=== PATIENT | male | born 1960 | race Caucasian/White ===

== ENCOUNTER → 2016-12-28 | Outpatient (CLI) | payer MEDICARE, OTHER ==
--- NOTE | 2016-12-28 16:31 | CT ---
EXAMINATION TYPE: CT ChestAbdPelvis w con DATE OF EXAM: 12/28/2016 4:03 PM COMPARISON: Outside MRI lumbar spine October 03, 2016. CT lumbar spine October 03, 2016. HISTORY: Abnormal recent MRI spine imaging. CT DLP: 1081 mGycm. Automated Exposure Control for Dose Reduction was Utilized. CONTRAST: CT scan of the thorax, abdomen and pelvis is performed with oral and with IV Contrast, patient inject ed with 100 mL of Omnipaque 300. FINDINGS: LUNGS: Exam is degraded by respiratory motion artifact. Lungs are grossly clear. No suspicious parenc hymal nodule or mass is present bilaterally. MEDIASTINUM: There are no greater than 1 cm hilar or mediastinal lymph nodes. No pericardial effus ion is seen. No cardiomegaly is seen. There is moderate left atrial and mild right atrial dilatation . Coronary artery calcification is present. OTHER: No additional significant abnormality is seen. LIVER/GB: No significant abnormality is appreciated. PANCREAS: No significant abnormality is seen. SPLEEN: No significant abnormality is seen. ADRENALS: No significant abnormality is seen. KIDNEYS: No significant abnormality is seen. BOWEL: There is redundancy of the sigmoid colon present. No suspicious small or large bowel dilatatio n is seen. Appendix is within normal limits from the cecum. GENITAL ORGANS: No gross abnormality seen. LYMPH NODES: No greater than 1cm abdominal or pelvic lymph nodes are appreciated. OSSEOUS STRUCTURES: Osseous structures are markedly demineralized. Advanced compression type fracture deformity L5-S1 level is redemonstrated with posterior retropulsion. There are innumerable small adilene ent lesions throughout all visualized osseous structures. A few nonspecific sclerotic foci are scatte red throughout the thoracic vertebra. There is fixation hardware and healed fracture deformity of the right proximal femur causing streak artifact limiting evaluation at this level. OTHER: No significant additional abnormality is seen. IMPRESSION: Redemonstration of abnormal appearance of osseous structures with multiple lucent lesions identified. Differential includes diffuse myelomatous involvement or lytic metastatic disease. Clini skyler correlation advised. No suspicious primary mass or neoplasm identified. Some nonspecific scattere d foci of sclerosis in the thoracic spine are noted. Subacute advanced compression fracture at L1 lev el with posterior retropulsion is stable.
== END | disposition home or self-care (01) ==
LOC: RADCTMAIN 14:22
PROVIDERS: ATTEND Internal Medicine Hematology & Oncology
DX: R93.7 Abnormal findings on diagnostic imaging of other parts of musculoskeletal system (principal); R79.9 Abnormal finding of blood chemistry, unspecified
CPT/HCPCS: 71260; 74177; Q9967

== ENCOUNTER 2017-02-21 18:21 | Observation (INO) | payer MEDICARE, OTHER ==
[2017-02-21] MEDS ORDERED: ACETAMINOPHEN TAB 325 MG TAB PO PRN (20:24)
[2017-02-21] MEDS ORDERED: ALBUTEROL NEBULIZED 2.5 MG/3 ML INHALATION PRN (20:24)
[2017-02-21] MEDS ORDERED: SODIUM CHLORIDE 0.9% 1,000 ML IV SCH (20:45)
[2017-02-21] MEDS: GABAPENTIN 300 MG CAP PO SCH (21:55)
[2017-02-21] MEDS: levETIRAcetam 500 MG TAB PO SCH (21:55)
[2017-02-21] MEDS: carBAMazepine 200 MG TAB PO SCH (21:55)
[2017-02-21] MEDS: FAMOTIDINE 20 MG TAB PO SCH (21:55)
[2017-02-22 00:38] VITALS: RESP 16
[2017-02-22 03:43] VITALS: BMI 18.3
[2017-02-22] MEDS ORDERED: METOPROLOL SUCCINATE (ER) 25 MG TAB.ER.24H PO SCH (10:00)
[2017-02-22] MEDS ORDERED: PHENobarbital 64.8 MG TAB PO SCH (10:00)
[2017-02-22] MEDS ORDERED: FERROUS SULFATE 325 MG TAB PO SCH (10:00)
[2017-02-22] MEDS ORDERED: ASPIRIN 325 MG TAB PO SCH (10:00)
[2017-02-22 10:03] VITALS: BP 102/59; PULSE 82; TEMP 98.4
[2017-02-22] MEDS: GABAPENTIN 300 MG CAP PO SCH ×2 (10:23→17:00)
[2017-02-22] MEDS: FAMOTIDINE 20 MG TAB PO SCH (10:23)
[2017-02-22] MEDS: levETIRAcetam 500 MG TAB PO SCH (10:29)
[2017-02-22] MEDS: carBAMazepine 200 MG TAB PO SCH (10:32)
[2017-02-22] MEDS ORDERED: PROPOFOL 10 MG/ML 20 ML VIAL IV ONE (12:00)
[2017-02-22] MEDS ORDERED: LACTATED RINGERS 1,000 ML BAG IV ONE (12:12)
--- NOTE | 2017-02-22 12:58 | PCN ---
DATE OF PROCEDURE: 02/22/2017 PROCEDURE: Bone marrow aspirate and biopsy. INDICATION: Suspect multiple myeloma, lytic lesion on MRI and elevated serum free light chain level and ratio. After obtaining consent from the patient's mother, who has a dual power of criminal defense attorney, the procedure was preformed in the endoscopy suite under general anesthesia performed by the anesthesia team. The patient was put on the left lateral decubital position. The right posterior iliac crest was localized. The skin was cleansed with ChloraPrep. All sterile procedures were followed. About 2 mL of 2% Xylocaine was used for local anesthetic. A 5-inch Jamshidi needle was inserted, about 10 mL of aspirate and 1.5 ( ) needle core biopsy was obtained without any difficulties. Pressure applied afterward. There was negligible blood loss. The patient tolerated the procedure very well without any immediate complications.
[2017-02-22 13:38] LABS: Basophils % (A) 1 %; CH 32.8; CHCM 36.5; Eosinophils # (A) 0.2 k/uL (0-0.7); Eosinophils % (A) 4 %; HCT 35.1 % (39.0-53.0); HDW 2.53; HGB 12.6 gm/dL (13.0-17.5); Luc % (Auto) 2; Lymphocytes # (A) 0.7 k/uL (1.0-4.8); Lymphocytes % (A) 17 %; MCH 32.3 pg (25.0-35.0); MCHC 35.8 g/dL (31.0-37.0); MCV 90.1 fL (80.0-100.0); Mean Platelet Volume 6.8; Monocytes # (A) 0.3 k/uL (0-1.0); Monocytes % (A) 6 %; Neutrophils # (A) 3.2 k/uL (1.3-7.7); Neutrophils % (A) 71 %; RDW 13.1 % (11.5-15.5); WBC 4.5 k/uL (3.8-10.6); WBC (Perox) 4.47
--- NOTE | 2017-02-22 14:28 | P.HPIM ---
History of Present Illness H&P Date: 02/22/17 Chief Complaint: bone marrow biopsy and aspirate This is observation note, pt was admitted last night as he is mentally challenged and is unable to maintain NPO status for procedure this AM. His H&P has been scanned to the medical record, he has had his bone marrow with Dr. Chavez and has discharge instructions already placed. Review of Systems Constitutional: Reports as per HPI Past Medical History Past Medical History: CVA/TIA, GERD/Reflux, Hypertension, Osteoarthritis (OA), Pneumonia, Seizure Disorder, Skin Disorder, Sleep Apnea/CPAP/BIPAP Additional Past Medical History / Comment(s): epilepsy, constipation, mentally handicapped, headaches, bronchitis, O2 PRN nasal canula or mask, osteoporosis, sores from scratching, hypoglycemia, cerebral palsy-walks only a little-does fall per mom, wheelchair, bleeds easily. fell and fx back in 2 places 11/23 History of Any Multi-Drug Resistant Organisms: None Reported Past Surgical History: Ear Surgery, Orthopedic Surgery Additional Past Surgical History / Comment(s): ORIF rt hip has plate/screws. Past Anesthesia/Blood Transfusion Reactions: No Reported Reaction Past Psychological History: Anxiety Additional Psychological History / Comment(s): cerebral palsy, minimal speech- takes long time to pronounce words Smoking Status: Never smoker Past Alcohol Use History: None Reported Past Drug Use History: None Reported - Past Family History Father History Unknown: Yes Mother Family Medical History: Cancer, Deep Vein Thrombosis (DVT), Myocardial Infarction ([place]), Pulmonary Embolus Additional Family Medical History / Comment(s): breast ovarian and uterine cancer, stroke x 4 Medications and Allergies Home Medications Medication Instructions Recorded Confirmed Type Gabapentin [Neurontin] 300 mg PO TID@1000,1700,2200 07/27/15 02/21/17 History Metoprolol Succinate [Toprol XL] 12.5 mg PO DAILY 07/27/15 02/21/17 History PHENobarbital [Luminal] 64.8 mg PO BID 07/27/15 02/21/17 History Ranitidine HCl [Zantac] 150 mg PO BID 07/27/15 02/21/17 History levETIRAcetam [Keppra] 500 mg PO Q12H 07/27/15 02/21/17 History carBAMazepine [Epitol] 200 mg PO BID 05/31/16 02/21/17 History Acetaminophen Tab [Tylenol Tab] 500 mg PO Q4H PRN 10/03/16 02/21/17 History Albuterol Nebulized [Ventolin 2.5 mg INHALATION RT-QID PRN 01/03/17 02/21/17 History Nebulized] Ferrous Sulfate [Feosol] 325 mg PO DAILY 01/03/17 02/21/17 History Aspirin 325 mg PO DAILY 02/19/17 02/21/17 History HYDROcodone/APAP 10-325MG [[place] 1 tab PO Q4HR PRN 02/21/17 02/21/17 History 10-325] Omeprazole 20 mg PO DAILY 02/21/17 02/21/17 History Allergies Allergy/AdvReac Type Severity Reaction Status Date / Time codeine Allergy Rash/Hives Verified 02/21/17 20:38 erythromycin base Allergy Rash/Hives Verified 02/21/17 20:38 Iodinated Contrast Media - Allergy Rash/Hives Verified 02/21/17 20:38 Oral and [Iodinated Contrast Media - IV Dye] Penicillins Allergy Rash/Hives Verified 02/21/17 20:38 radioactive serum Allergy Rash/Hives Uncoded 02/19/17 14:45 Physical Exam Vitals: Vital Signs Temp Pulse Pulse Resp BP Pulse Ox 02/22/17 08:03 88 02/22/17 08:00 16 02/22/17 07:53 80 02/22/17 07:00 98.4 F 82 16 102/59 96 02/22/17 00:00 16 02/21/17 23:00 96.6 F L 67 16 182/88 100 Intake and Output 02/21/17 02/22/17 02/22/17 22:59 06:59 14:59 Intake Total 590 360 Balance 590 360 Intake: Oral 590 360 Other: Voiding Method Toilet # Voids 2 1 Weight 48.534 kg 48.534 kg Patient Weight 02/23/17 06:59 Weight [address] Chavez's procedure note Results CBC & Chem 7: 02/22/17 12:10 Labs: Abnormal Lab Results - Last 24 Hours (Table) 02/22/17 Range/Units 12:10 RBC 3.90 L (4.30-5.90) m/uL Hgb 12.6 L (13.0-17.5) gm/dL Hct 35.1 L (39.0-53.0) % Lymphocytes # 0.7 L (1.0-4.8) k/uL Thrombosis Risk Factor Assmnt - Choose All That Apply Any of the Below Risk Factors Present?: Yes Each Factor Represents 1 point: Age 41-60 years Other Risk Factors: Yes Each Risk Factor Represents 3 Points: History of DVT/PE Other congenital or acquired thrombophilia - If yes, enter type in comment: No Thrombosis Risk Factor Assessment Total Risk Factor Score: 4 Thrombosis Risk Factor Assessment Level: Moderate Risk Assessment and Plan Plan: Bone marrow biopsy and aspirate for suspected marrow disorder, results pending, pt has follow up sched with Dr. Chavez
== END 2017-02-22 17:32 | disposition home or self-care (01) ==
LOC: 5ONC 18:21
PROVIDERS: ADMIT Internal Medicine Hematology & Oncology; ATTEND Internal Medicine Hematology & Oncology
DX: D47.2 Monoclonal gammopathy (principal); D64.9 Anemia, unspecified; M81.0 Age-related osteoporosis without current pathological fracture; G80.9 Cerebral palsy, unspecified; G40.909 Epilepsy, unspecified, not intractable, without status epilepticus; Z86.73 Personal history of transient ischemic attack (TIA), and cerebral infarction without residual deficits; K21.9 Gastro-esophageal reflux disease without esophagitis; I10 Essential (primary) hypertension; G47.30 Sleep apnea, unspecified; M19.90 Unspecified osteoarthritis, unspecified site; F41.9 Anxiety disorder, unspecified; Z80.41 Family history of malignant neoplasm of ovary; Z80.3 Family history of malignant neoplasm of breast; Z82.49 Family history of ischemic heart disease and other diseases of the circulatory system; Z79.899 Other long term (current) drug therapy; Z79.82 Long term (current) use of aspirin; Z88.5 Allergy status to narcotic agent; Z88.3 Allergy status to other anti-infective agents; Z91.041 Radiographic dye allergy status; Z88.0 Allergy status to penicillin; Z86.711 Personal history of pulmonary embolism; Z86.718 Personal history of other venous thrombosis and embolism
CPT/HCPCS: 94640; 85025; 38221; G0378 ×2; G0379; J2704; G0364

== ENCOUNTER 2017-03-05 06:27 | Emergency (ER) | payer MEDICARE, OTHER ==
[2017-03-05] MEDS ORDERED: SODIUM CHLORIDE 0.9% 500 ML IV STA (07:23)
[2017-03-05] MEDS ORDERED: LORazepam 2 MG/ML SYRINGE IV STA (07:23)
[2017-03-05] MEDS ORDERED: SODIUM CHLORIDE 0.9% 1,000 ML IV STA (07:23)
--- NOTE | 2017-03-05 07:27 | ED ---
Seizure HPI - General Chief Complaint: Seizure Stated Complaint: Seizure Time Seen by Provider: 03/05/17 07:05 Source: patient, family Mode of arrival: EMS Limitations: language barrier - History of Present Illness Initial Comments: Has a history of seizure disorder since he was 3 months old, he had a seizure today after he got up this morning at the time of seizure he was in the band his mom said seizure lasted about 8 minutes, his mother is his caregiver. There were some changes made in his medications recently and really for seizure disorder he is in a gabapentin, Keppra, phenobarbital and carbamazepine. His compliance is not seems to be an issue at this point review of system is bit difficult the is not clearly verbal but his mom understands his complaints him according to mom he has a headache now and there was no injury from the seizure since he was in the bed at the time of seizure - Related Data Home Medications Medication Instructions Recorded Confirmed Gabapentin [Neurontin] 300 mg PO TID@1000,1700,2200 07/27/15 03/05/17 Metoprolol Succinate [Toprol XL] 12.5 mg PO DAILY 07/27/15 03/05/17 PHENobarbital [Luminal] 64.8 mg PO DAILY 07/27/15 03/05/17 Ranitidine HCl [Zantac] 150 mg PO BID 07/27/15 03/05/17 levETIRAcetam [Keppra] 500 mg PO Q12H 07/27/15 03/05/17 carBAMazepine [Epitol] 200 mg PO BID 05/31/16 03/05/17 Acetaminophen Tab [Tylenol Tab] 500 mg PO Q4H PRN 10/03/16 03/05/17 Albuterol Nebulized [Ventolin 2.5 mg INHALATION RT-QID PRN 01/03/17 03/05/17 Nebulized] Ferrous Sulfate [Feosol] 325 mg PO DAILY 01/03/17 03/05/17 Aspirin 325 mg PO DAILY 02/19/17 03/05/17 Cholecalciferol [Vitamin D3] 1,000 unit PO DAILY 03/05/17 03/05/17 Previous Rx's Medication Instructions Recorded Clindamycin [Cleocin] 450 mg PO Q8H #21 capsule 03/05/17 Allergies Allergy/AdvReac Type Severity Reaction Status Date / Time codeine Allergy Rash/Hives Verified 03/05/17 07:52 erythromycin base Allergy Rash/Hives Verified 03/05/17 07:52 Iodinated Contrast Media - Allergy Rash/Hives Verified 03/05/17 07:52 Oral and [Iodinated Contrast Media - IV Dye] Penicillins Allergy Rash/Hives Verified 03/05/17 07:52 radioactive serum Allergy Rash/Hives Uncoded 03/05/17 06:45 Review of Systems ROS Statement: Those systems with pertinent positive or pertinent negative responses have been documented in the HPI. ROS Other: All systems not noted in ROS Statement are negative. Past Medical History Past Medical History: CVA/TIA, GERD/Reflux, Hypertension, Osteoarthritis (OA), Pneumonia, Seizure Disorder, Skin Disorder, Sleep Apnea/CPAP/BIPAP Additional Past Medical History / Comment(s): epilepsy, constipation, cognitively impaired, headaches, bronchitis, O2 PRN nasal canula or mask, osteoporosis, sores from scratching, hypoglycemia, cerebral palsy-walks only a little-does fall per mom, wheelchair, bleeds easily, fell and fx back in 2 places 11/23, pt uses wheelchair for ambulation at home History of Any Multi-Drug Resistant Organisms: None Reported Past Surgical History: Ear Surgery, Orthopedic Surgery Additional Past Surgical History / Comment(s): ORIF rt hip has plate/screws. Past Anesthesia/Blood Transfusion Reactions: No Reported Reaction Past Psychological History: Anxiety Additional Psychological History / Comment(s): cerebral palsy, minimal speech- takes long time to pronounce words Smoking Status: Never smoker Past Alcohol Use History: None Reported Past Drug Use History: None Reported - Past Family History Father History Unknown: Yes Mother Family Medical History: Cancer, Deep Vein Thrombosis (DVT), Myocardial Infarction ([place]), Pulmonary Embolus Additional Family Medical History / Comment(s): breast ovarian and uterine cancer, stroke x 4 General Exam - General Exam Comments Initial Comments: General: The patient is awake and alert, in no distress, and does not appear acutely ill. Skin: Skin is warm and dry and no rashes or lesions are noted. Examination of the scalp did not reveal any hematoma, laceration Eye: He is not quite cooperative with the eye exam no obvious abnormalities noticed he continued to move his eyes in the other direction and unable to a appropriate exam Ears, nose, mouth and throat: Noticed both his ears have otitis Neck: The neck is supple, there is no tenderness or JVD. Cardiovascular: There is a regular rate and rhythm. No murmur, rub or gallop is appreciated. Respiratory: To auscultation bilateral, no wheezing no rhonchi no distress respiratory john noticed Gastrointestinal: Soft, non-distended, non-tender abdomen without masses or organomegaly noted. There is no rebound or guarding present. Bowel sounds are unremarkable. Back: There is no tenderness to palpation in the midline. There is no obvious deformity. Musculoskeletal: Normal ROM, no tenderness, There is no pedal edema. There is no calf tenderness or swelling. No cords were appreciated. Neurological: CN II-XII intact, Cranial nerves III through XII are intact. He does have a baseline neuro deficits and lower extremities, according to mom there are no changes from his baseline Psychiatric: Cooperative some extent he likes certain part of the exam and it' s impossible to evaluate him from the psychiatry standpoint since he is nonverbal Limitations: language barrier Course Vital Signs 03/05/17 03/05/17 03/05/17 06:30 08:38 09:07 Temperature 98.6 F Pulse Rate 87 69 68 Respiratory 20 18 18 Rate Blood Pressure 145/111 141/68 130/66 O2 Sat by Pulse 98 99 98 Oximetry 03/05/17 10:07 Temperature Pulse Rate 68 Respiratory 18 Rate Blood Pressure 140/70 O2 Sat by Pulse 100 Oximetry EKG is normal sinus rhythm ventricular rate 65 NC interval is 168 QRS duration is 82 QT/QTc is 4/428 review of this EKG does not reveal any ST elevation or ST depression mild the first EKG we did on this patient had a multiple artifacts documented up doing the second EKG and first EKG present artifacts would not interpreted - Reevaluation(s) Reevaluation #1: 03/05/17 10:11 And was reassessed at 10 AM, he is drinking fluids he's been now seizure-free, his labs and imaging those were discussed with his mother and urinalysis, chest x-ray, head CT, CBC, compressive metabolic were reviewed his sodium is 127 chloride is 21 and he was given some IV fluids and he is back to his baseline he called his troponin levels were within normal range he does have a bit of ear infection he will need antibiotics for that and mom was advised to see his neurologist in next few days and she agrees with the Medical Decision Making - Lab Data Result diagrams: 03/05/17 06:55 03/05/17 06:55 Lab Results 03/05/17 03/05/17 03/05/17 Range/Units 06:55 06:55 07:36 WBC 4.5 (3.8-10.6) k/uL RBC 3.77 L (4.30-5.90) m/uL Hgb 11.9 L (13.0-17.5) gm/dL Hct 34.9 L (39.0-53.0) % MCV 92.6 (80.0-100.0) fL MCH 31.6 (25.0-35.0) pg MCHC 34.1 (31.0-37.0) g/dL RDW 13.2 (11.5-15.5) % Plt Count 287 (150-450) k/uL Neutrophils % 59 % Lymphocytes % 27 % Monocytes % 5 % Eosinophils % 6 % Basophils % 1 % Neutrophils # 2.6 (1.3-7.7) k/uL Lymphocytes # 1.2 (1.0-4.8) k/uL Monocytes # 0.2 (0-1.0) k/uL Eosinophils # 0.3 (0-0.7) k/uL Basophils # 0.1 (0-0.2) k/uL Sodium 127 L (137-145) mmol/L Potassium 3.7 (3.5-5.1) mmol/L Chloride 91 L (98-107) mmol/L Carbon Dioxide 21 L (22-30) mmol/L Anion Gap 15 mmol/L BUN 9 (9-20) mg/dL Creatinine 0.61 L (0.66-1.25) mg/dL Est GFR (MDRD) Af Amer >60 (>60 ml/min/1.73 sqM) Est GFR (MDRD) Non-Af >60 (>60 ml/min/1.73 sqM) Glucose 110 H (74-99) mg/dL Calcium 9.1 (8.4-10.2) mg/dL Total Bilirubin 0.5 (0.2-1.3) mg/dL AST 25 (17-59) U/L ALT 27 (21-72) U/L Alkaline Phosphatase 100 (38-126) U/L Total Protein 7.0 (6.3-8.2) g/dL Albumin 4.3 (3.5-5.0) g/dL Urine Color Colorless Urine Appearance Clear (Clear) Urine pH 6.0 (5.0-8.0) Ur Specific [place] 1.005 (1.001-1.035) Urine Protein Trace H (Negative) Urine Glucose (UA) Negative (Negative) Urine Ketones Negative (Negative) Urine Blood Negative (Negative) Urine Nitrite Negative (Negative) Urine Bilirubin Negative (Negative) Urine Urobilinogen <2.0 (<2.0) mg/dL Ur Leukocyte Esterase Negative (Negative) Carbamazepine 6.0 ug/mL Disposition Clinical Impression: Seizure disorder, Otitis Disposition: HOME SELF-CARE Condition: Good Instructions: Recurrent Seizures in Adults (ED) Prescriptions: Clindamycin [Cleocin] 450 mg PO Q8H #21 capsule Referrals: Missy Metcalf MD [Primary Care Provider] - 1-2 days James Crowe MD [STAFF PHYSICIAN] - 1-2 days
[2017-03-05 07:35] LABS: Basophils # (A) 0.1 k/uL (0-0.2); Basophils % (A) 1 %; CH 32.4; CHCM 35.1; Eosinophils # (A) 0.3 k/uL (0-0.7); Eosinophils % (A) 6 %; HCT 34.9 % (39.0-53.0); HDW 2.45; HGB 11.9 gm/dL (13.0-17.5); Luc # (Auto) 0.13; Luc % (Auto) 3; Lymphocytes # (A) 1.2 k/uL (1.0-4.8); Lymphocytes % (A) 27 %; MCH 31.6 pg (25.0-35.0); MCHC 34.1 g/dL (31.0-37.0); MCV 92.6 fL (80.0-100.0); Mean Platelet Volume 6.7; Monocytes # (A) 0.2 k/uL (0-1.0); Monocytes % (A) 5 %; Neutrophils # (A) 2.6 k/uL (1.3-7.7); Neutrophils % (A) 59 %; RBC 3.77 m/uL (4.30-5.90); RDW 13.2 % (11.5-15.5); WBC 4.5 k/uL (3.8-10.6); WBC (Perox) 4.29
[2017-03-05 07:44] LABS: ALT 27 U/L (21-72); AST 25 U/L (17-59); Alkaline Phosphatase 100 U/L (38-126); Anion Gap 15 mmol/L; Blood Urea Nitrogen 9 mg/dL (9-20); Calcium 9.1 mg/dL (8.4-10.2); Carbon Dioxide 21 mmol/L (22-30); Chloride 91 mmol/L (98-107); Glucose 110 mg/dL (74-99); Non-African American GFR(MDRD) >60 (>60 ml/min/1.73 sqM); Potassium 3.7 mmol/L (3.5-5.1); Sodium 127 mmol/L (137-145); Total Bilirubin 0.5 mg/dL (0.2-1.3)
[2017-03-05] MEDS: ACETAMINOPHEN TAB 500 MG TAB PO STA ×2 (07:44→07:50)
[2017-03-05 07:48] LABS: Appearance,Urine Clear (Clear); Bilirubin,Urine Negative (Negative); Glucose,Urine (UA) Negative (Negative); Ketones,Urine Negative (Negative); Leukocyte Esterase,Urine Negative (Negative); Nitrite,Urine Negative (Negative); Protein,Urine Trace (Negative); Specific Gravity,Urine 1.005 (1.001-1.035); UA Billing (MACRO vs. MICRO) CHEM; Urobilinogen,Urine <2.0 mg/dL (<2.0)
--- NOTE | 2017-03-05 08:38 | CT ---
EXAMINATION TYPE: CT brain wo con DATE OF EXAM: 03/05/2017 COMPARISON: NONE HISTORY: Seizure CT DLP: 2351 mGycm Automated exposure control for dose reduction was used. FINDINGS: The study is markedly deteriorated by patient motion artifact. The patient was unable to cooperate wi th the examination. There is a small paramedian area of encephalomalacia in the left frontal lobe with some associated co arse calcification. There is no gross mass effect or midline shift. There is mild prominence of the v entricles. There is periventricular white matter lucency which may be on the basis of chronic ischemi c change. Less likely would be transependymal resorption of CSF. I do not see evidence of intracrania l blood. Based on this study it is impossible to assess the paranasal sinuses. IMPRESSION: 1. GROSSLY SUBOPTIMAL EXAMINATION. 2. NO GROSS INTRACRANIAL HEMORRHAGE OR MASS EFFECT. 3. CHRONIC CHANGES DESCRIBED.
[2017-03-05 08:39] VITALS: RESP 18
--- NOTE | 2017-03-05 09:47 | XR ---
EXAMINATION TYPE: XR chest 1V portable DATE OF EXAM: 03/05/2017 9:40 AM COMPARISON: 05/31/2016 INDICATION: Pain, seizure TECHNIQUE: Single frontal view of the chest is obtained. FINDINGS: The heart size is normal. The pulmonary vasculature is normal. The lungs are clear. IMPRESSION: 1. No acute pulmonary process.
[2017-03-05 10:22] VITALS: BP 140/70; PULSE 68
[2017-03-05 10:35] VITALS: TEMP 97.2
== END 2017-03-05 10:36 | disposition home or self-care (01) ==
LOC: EC 06:27
DX: G40.909 Epilepsy, unspecified, not intractable, without status epilepticus (principal); H66.93 Otitis media, unspecified, bilateral; K21.9 Gastro-esophageal reflux disease without esophagitis; I10 Essential (primary) hypertension; M19.90 Unspecified osteoarthritis, unspecified site; Z86.73 Personal history of transient ischemic attack (TIA), and cerebral infarction without residual deficits; Z98.890 Other specified postprocedural states; Z79.82 Long term (current) use of aspirin; Z79.899 Other long term (current) drug therapy; Z88.0 Allergy status to penicillin; Z88.1 Allergy status to other antibiotic agents; Z88.5 Allergy status to narcotic agent; Z91.041 Radiographic dye allergy status
CPT/HCPCS: 36415; 93005; 80156; 80053; 85025; 81003; 80184; 71010; 70450; 99285; 96374; 96361 ×3; J2060

== ENCOUNTER 2021-01-30 03:39 | Inpatient (IN) | payer MEDICARE, OTHER ==
[2021-01-30] MEDS ORDERED: MORPHINE SULFATE 4 MG/ML SYRINGE IV STA (04:21)
[2021-01-30] MEDS ORDERED: SODIUM CHLORIDE 0.9% 1,000 ML IV STA (04:21)
--- NOTE | 2021-01-30 04:25 | ED ---
Chest Pain HPI - General Chief Complaint: Back Pain/Injury Stated Complaint: Back Pain Time Seen by Provider: 01/30/21 03:43 Source: patient, family, RN notes reviewed, old records reviewed, Caregiver Mode of arrival: wheelchair Limitations: no limitations - History of Present Illness Initial Comments: This is a 6-year-old male poor story and comes with mother who is patient's caregiver as well as doing history coming in for evaluation of chest pains and near syncopal event at home and not feeling well. Patient himself is unable to give accurate history MD Complaint: chest pain -: hour(s) Onset: during rest Pain Location: substernal Pain Radiation: none Severity: moderate Severity scale (1-10): 4 Quality: tightness Consistency: constant Improves With: nothing Worsens With: nothing Context: other (On couch watching TV) Anginal Symptoms: dyspnea Other Symptoms: other (none) Treatments Prior to Arrival: none - Related Data Home Medications Medication Instructions Recorded Confirmed Gabapentin [Neurontin] 300 mg PO TID 07/27/15 01/30/21 Acetaminophen Tab [Tylenol Tab] 1,000 mg PO Q6HR PRN 01/30/21 01/30/21 Aspirin EC [Ecotrin Low Dose] 81 mg PO DAILY 01/30/21 01/30/21 Atorvastatin [Lipitor] 40 mg PO HS 01/30/21 01/30/21 Lacosamide [Vimpat] 200 mg PO BID 01/30/21 01/30/21 lamoTRIgine [LaMICtal] 100 mg PO TID 01/30/21 01/30/21 levETIRAcetam [Keppra] 1,500 mg PO BID 01/30/21 01/30/21 Allergies Allergy/AdvReac Type Severity Reaction Status Date / Time codeine Allergy Rash/Hives Verified 01/30/21 07:30 erythromycin base Allergy Rash/Hives Verified 01/30/21 07:30 Iodinated Contrast Media Allergy Rash/Hives Verified 01/30/21 07:30 [Iodinated Contrast Media - IV Dye] Penicillins Allergy Rash/Hives Verified 01/30/21 07:30 radioactive serum Allergy Rash/Hives Uncoded 01/30/21 07:30 Review of Systems ROS Statement: Those systems with pertinent positive or pertinent negative responses have been documented in the HPI. ROS Other: All systems not noted in ROS Statement are negative. EKG Findings - EKG Comments: EKG Findings:: EKG is sinus rhythm 85 [place] 172 QRS 80 QTC 445 Past Medical History Past Medical History: CVA/TIA, GERD/Reflux, Hypertension, Osteoarthritis (OA), Pneumonia, Seizure Disorder, Skin Disorder, Sleep Apnea/CPAP/BIPAP Additional Past Medical History / Comment(s): epilepsy, constipation, cognitively impaired, headaches, bronchitis, O2 PRN nasal canula or mask, osteoporosis, sores from scratching, hypoglycemia, cerebral palsy-walks only a little-does fall per mom, wheelchair, bleeds easily, fell and fx back in 2 places 11/23, pt uses wheelchair for ambulation at home History of Any Multi-Drug Resistant Organisms: None Reported Past Surgical History: Ear Surgery, Orthopedic Surgery Additional Past Surgical History / Comment(s): ORIF rt hip has plate/screws. Past Anesthesia/Blood Transfusion Reactions: No Reported Reaction Past Psychological History: Anxiety Smoking Status: Never smoker Past Alcohol Use History: None Reported Past Drug Use History: None Reported - Past Family History Father History Unknown: Yes Mother Family Medical History: Cancer, Deep Vein Thrombosis (DVT), Myocardial Infarction ([place]), Pulmonary Embolus Additional Family Medical History / Comment(s): breast ovarian and uterine cancer, stroke x 4 General Exam Limitations: no limitations General appearance: alert, anxious, in distress, cachectic Head exam: Present: atraumatic, normocephalic, normal inspection Eye exam: Present: normal appearance, PERRL, EOMI. Absent: scleral icterus, conjunctival injection, periorbital swelling ENT exam: Present: normal exam, mucous membranes moist Neck exam: Present: normal inspection. Absent: tenderness, meningismus, lymphadenopathy Respiratory exam: Present: normal lung sounds bilaterally. Absent: respiratory distress, wheezes, rales, rhonchi, stridor Cardiovascular Exam: Present: regular rate, normal rhythm, normal heart sounds. Absent: systolic murmur, diastolic murmur, rubs, gallop, clicks GI/Abdominal exam: Present: soft, normal bowel sounds. Absent: distended, tenderness, guarding, rebound, rigid Extremities exam: Present: normal inspection, full ROM, normal capillary refill. Absent: tenderness, pedal edema, joint swelling, calf tenderness Back exam: Present: normal inspection Neurological exam: Present: alert, oriented X3, CN II-XII intact Psychiatric exam: Present: normal affect, normal mood Skin exam: Present: warm, dry, intact, normal color. Absent: rash Course Vital Signs 01/30/21 01/30/21 01/30/21 03:42 06:52 08:00 Temperature 97.7 F Pulse Rate 91 92 Pulse Rate [ 92 Right Pulse Oximetery] Respiratory 20 16 Rate Blood Pressure 130/71 131/71 Blood Pressure 103/68 [Right Arm] O2 Sat by Pulse 97 97 97 Oximetry 01/30/21 01/30/21 01/30/21 09:51 10:01 10:31 Temperature 98.6 F 98.6 F 98.2 F Pulse Rate 91 87 85 Pulse Rate [ Right Pulse Oximetery] Respiratory 12 12 Rate Blood Pressure 117/73 110/64 109/65 Blood Pressure [Right Arm] O2 Sat by Pulse 95 96 Oximetry 01/30/21 01/30/21 01/30/21 12:00 13:00 13:54 Temperature 97.5 F L Pulse Rate 84 78 Pulse Rate [ 79 Right Pulse Oximetery] Respiratory 16 16 Rate Blood Pressure 109/66 116/70 Blood Pressure 113/68 [Right Arm] O2 Sat by Pulse 97 96 97 Oximetry 01/30/21 01/30/21 01/30/21 14:04 14:32 14:44 Temperature 97.4 F L 97.7 F 97.6 F Pulse Rate 80 79 76 Pulse Rate [ Right Pulse Oximetery] Respiratory 16 16 16 Rate Blood Pressure 111/71 117/76 122/71 Blood Pressure [Right Arm] O2 Sat by Pulse 97 97 Oximetry 01/30/21 01/30/21 01/30/21 14:52 15:18 15:50 Temperature 97.6 F 97.9 F 97.5 F L Pulse Rate 78 75 73 Pulse Rate [ Right Pulse Oximetery] Respiratory 16 16 16 Rate Blood Pressure 122/71 118/70 125/72 Blood Pressure [Right Arm] O2 Sat by Pulse 98 97 97 Oximetry 01/30/21 01/30/21 16:26 18:00 Temperature 97.9 F Pulse Rate 70 69 Pulse Rate [ Right Pulse Oximetery] Respiratory 16 16 Rate Blood Pressure 119/73 129/76 Blood Pressure [Right Arm] O2 Sat by Pulse 97 97 Oximetry - Reevaluation(s) Reevaluation #1: Medical record is reviewed Symptoms improved here in the ER Patient informed of results and questions answered Studies CT chest CT I chest CT brain negative for acute disease Chest Pain MDM - MDM 6 female DF for evaluation of chest pain non-ST elevated PA with significant anemia. Patient is transfused [place] for cardiac evaluation and treatment Critical Care Time Critical Care Time: Yes Total Critical Care Time: 31 Disposition Clinical Impression: Chest pain, GI bleed, Anemia, Weakness, NSTEMI (non-ST elevated myocardial infarction) Disposition: ADMITTED IP TO THIS HOSP Condition: Fair Is patient prescribed a controlled substance at d/c from ED?: No
[2021-01-30] MEDS ORDERED: methylPREDNISolone SOD SUCCI 125 MG/2 ML VIAL IV STA (04:53)
[2021-01-30] MEDS ORDERED: diphenhydrAMINE 50 MG/ML 1 ML VIAL IVP STA (04:53)
[2021-01-30] MEDS ORDERED: FAMOTIDINE 20 MG/2 ML VIAL IV STA (04:53)
[2021-01-30 05:12] LABS: Anisocytosis Slight; Basophils % (A) 1 %; Eosinophils # (A) 0.2 k/uL (0-0.7); Eosinophils % (A) 5 %; Lymphocytes % (A) 28 %; MCH 30.1 pg (25.0-35.0); MCHC 31.4 g/dL (31.0-37.0); MCV 95.9 fL (80.0-100.0); Mean Platelet Volume 6.5; Monocytes # (A) 0.2 k/uL (0-1.0); Monocytes % (A) 6 %; Neutrophils # (A) 2.1 k/uL (1.3-7.7); Neutrophils % (A) 59 %; Platelet Count 251 k/uL (150-450); RBC 2.02 m/uL (4.30-5.90); RDW 16.5 % (11.5-15.5); WBC 3.5 k/uL (3.8-10.6)
[2021-01-30 05:18] LABS: HCT 19.3 % (39.0-53.0); HGB 6.1 gm/dL (13.0-17.5)
[2021-01-30 05:30] LABS: Albumin 4.3 g/dL (3.5-5.0); Calcium 10.5 mg/dL (8.4-10.2); Magnesium 1.5 mg/dL (1.6-2.3); Phosphorus 5.1 mg/dL (2.5-4.5); Total Bilirubin 0.3 mg/dL (0.2-1.3); Total Protein 6.8 g/dL (6.3-8.2)
[2021-01-30 05:46] LABS: INR 0.9 (<1.2)
[2021-01-30 05:47] LABS: Prothrombin Time 9.6 sec (9.0-12.0)
--- NOTE | 2021-01-30 05:50 | CT ---
EXAM: CT Head Without Intravenous Contrast CLINICAL HISTORY: ITS.REASON CT Reason: pain TECHNIQUE: Axial computed tomography images of the head/brain without intravenous contrast. CTDI is 49.1 mGy and DLP is 1184 mGy-cm. This CT exam was performed using one or more of the following dose reduction techniques: automated exposure control, adjustment of the mA and/or kV according to patient size, and/or use of iterative reconstruction technique. COMPARISON: 03/05/2017 FINDINGS: Brain: No hemorrhage, herniation, or mass effect. Chronic microvascular ischemic changes. Ventricles: No hydrocephalus. Age related cerebral volume loss. Bones/joints: Unremarkable. Soft tissues: Unremarkable. Sinuses: Unremarkable. Mastoid air cells: Clear. IMPRESSION: No acute hemorrhage, hydrocephalus, or mass effect.
[2021-01-30 05:59] LABS: D-Dimer 3.39 mg/L FEU (<0.60); Partial Thromboplastin Time 18.1 sec (22.0-30.0)
[2021-01-30] MEDS ORDERED: NALOXONE 0.4 MG/ML 1 ML VIAL IV PRN (06:13)
[2021-01-30] MEDS ORDERED: ONDANSETRON 4 MG/2 ML VIAL IVP PRN (06:13)
[2021-01-30] MEDS ORDERED: MORPHINE SULFATE 4 MG/ML SYRINGE IV PRN (06:13)
[2021-01-30] MEDS ORDERED: ASPIRIN 81 MG PO STA (06:15)
--- NOTE | 2021-01-30 06:43 | CT ---
EXAM: CT Angiography Chest With Intravenous Contrast CLINICAL HISTORY: ITS.REASON CT Reason: pain TECHNIQUE: Axial computed tomographic angiography images of the chest with intravenous contrast. CTDI is 14.17 mGy and DLP is 313.9 mGy-cm. This CT exam was performed using one or more of the following dose reduction techniques: automated exposure control, adjustment of the mA and/or kV according to patient size, and/or use of iterative reconstruction technique. MIP reconstructed images were created and reviewed. COMPARISON: Chest CT December 28, 2016. FINDINGS: LUNGS: There is no focal infiltrate. There is no pleural effusion or pneumothorax. The tracheobronchial tree is patent. Atelectasis at the right lung base. HEART: Cardiomegaly. VASCULATURE: No acute pulmonary embolism. Atherosclerotic changes of the aorta. THYROID: Within normal limits. MEDIASTINUM + LYMPHADENOPATHY: There are no pathologically enlarged mediastinal, hilar, or axillary lymph nodes. SUPERIOR ABDOMEN: Small hiatal hernia. MUSCULOSKELETAL: Degenerative change of the spine with diffuse, severe osteoporosis. Diffuse lucency/lytic lesions may represent changes related to multiple myeloma. In addition, there are scattered osteoblastic lesions which may represent bone islands versus metastatic disease. Consider correlation with bone scan. Old, left fourth rib fracture. IMPRESSION: No acute pulmonary embolism. Small hiatal hernia. Degenerative change of the spine with diffuse, severe osteoporosis. Diffuse lucency/lytic lesions may represent changes related to multiple myeloma. In addition, there are scattered osteoblastic lesions which may represent bone islands versus metastatic disease. Consider correlation with bone scan. Old, left fourth rib fracture.
[2021-01-30] MEDS ORDERED: PANTOPRAZOLE 40 MG/10 ML VIAL IV SCH (09:00)
--- NOTE | 2021-01-30 11:51 | ECHOF ---
Referral Reason:elevTrop MEASUREMENTS -------- HEIGHT: 152.4 cm WEIGHT: 61.2 kg BP: RVIDd: 3.1 cm (< 3.3) IVSd: 0.9 cm (0.6 - 1.1) LVIDd: 4.1 cm (3.9 - 5.3) LVPWd: 0.8 cm (0.6 - 1.1) IVSs: 1.5 cm LVIDs: 2.4 cm LVPWs: 1.3 cm LA Diam: 3.9 cm (2.7 - 3.8) LAESV Index (A-L): 29.69 ml/m Ao Diam: 2.9 cm (2.0 - 3.7) AV Cusp: 1.1 cm (1.5 - 2.6) LA Diam: 4.6 cm (2.7 - 3.8) MV EXCURSION: 20.477 mm (> 18.000) MV EF SLOPE: 83 mm/s (70 - 150) EPSS: 0.4 cm MV E Jorge: 0.69 m/s MV DecT: 245 ms MV A Jorge: 1.04 m/s MV E/A Ratio: 0.67 RAP: 5.00 mmHg RVSP: 24.48 mmHg FINDINGS -------- Sinus rhythm. This was a technically adequate study. LV size, wall thickness and systolic function are normal, with an EF greater than 55%. The left lamont tricular size is normal. The diastolic filling pattern is normal for the age of the patient 10.62. The right ventricle is normal in size. LA is midly dilated 29-33ml/m2. The right atrial size is normal. The aortic valve is trileaflet, and appears structurally normal. No aortic stenosis or regurgitation. The mitral valve is normal. Mild mitral regurgitation is present. The tricuspid valve appears structurally normal. Mild tricuspid regurgitation present. Right vent ricular systolic pressure is normal at < 35 mmHg. There is no pulmonic regurgitation present. The aortic root size is normal. There is no pericardial effusion. CONCLUSIONS -------- 1. LV size, wall thickness and systolic function are normal, with an EF greater than 55%. 2. LA is midly dilated 29-33ml/m2. 3. The aortic valve is trileaflet, and appears structurally normal. No aortic stenosis or regurgitati on. 4. Mild mitral regurgitation is present. 5. Mild tricuspid regurgitation present. 6. There is no pericardial effusion. BANQUET WAITER/WAITRESS: Marisol Barreto RDCS
[2021-01-30 12:26] LABS: Reticulocyte % 1.6 % (0.5-2.0)
--- NOTE | 2021-01-30 13:08 | P.CRDCN ---
History of Present Illness Consult date: 01/30/21 History of present illness: This is a 60-year-old gentleman who is mentally challenged, was brought to the emergency room by patient's mom for evaluation of symptoms of chest pain. Apparently patient cannot communicate but has been pointing towards his chest. He has history of hypertension and previous CVA and also had history of GERD. Patient has GI symptoms and apparently mother has been giving him "" gas pills. That seemed to help his symptoms. However, since admission patient was noted to have severe anemia and also mild leukopenia. His creatinine is also high. His troponin was found to be high. EKG however, did not reveal any acute changes. His echocardiogram showed normal LV function without any segmental wall motion defects. At this point patient needs to be treated for anemia. Patient may receive blood transfusion. We'll follow the trend of the troponins. Pa probably patient needs a GI evaluation to rule out a source of bleeding. We wi ll continue with conservative management for cardiac issues and for now. Further examination depend upon the clinical course. Patient's d-dimer is elevated but computed tomography scan is negative for pulmonary emboli. However, computed tomography scan showed multiple osteolytic lesions and also osteoblastic lesions. The possibility of metastatic disease and also multiple myeloma were suggested. Those lesions or may also cause chest pains. May need further evaluation Review of Systems As per the chart Past Medical History Past Medical History: CVA/TIA, GERD/Reflux, Hypertension, Osteoarthritis (OA), Pneumonia, Seizure Disorder, Skin Disorder, Sleep Apnea/CPAP/BIPAP Additional Past Medical History / Comment(s): epilepsy, constipation, cognitively impaired, headaches, bronchitis, O2 PRN nasal canula or mask, osteoporosis, sores from scratching, hypoglycemia, cerebral palsy-walks only a little-does fall per mom, wheelchair, bleeds easily, fell and fx back in 2 places 11/23, pt uses wheelchair for ambulation at home History of Any Multi-Drug Resistant Organisms: None Reported Past Surgical History: Ear Surgery, Orthopedic Surgery Additional Past Surgical History / Comment(s): ORIF rt hip has plate/screws. Past Anesthesia/Blood Transfusion Reactions: No Reported Reaction Past Psychological History: Anxiety Additional Psychological History / Comment(s): cerebral palsy, minimal speech- takes long time to pronounce words Smoking Status: Never smoker Past Alcohol Use History: None Reported Past Drug Use History: None Reported - Past Family History Father History Unknown: Yes Mother Family Medical History: Cancer, Deep Vein Thrombosis (DVT), Myocardial Infarction ([place]), Pulmonary Embolus Additional Family Medical History / Comment(s): breast ovarian and uterine cancer, stroke x 4 Medications and Allergies Home Medications Medication Instructions Recorded Confirmed Type Gabapentin [Neurontin] 300 mg PO TID 07/27/15 01/30/21 History Acetaminophen Tab [Tylenol Tab] 1,000 mg PO Q6HR PRN 01/30/21 01/30/21 History Aspirin EC [Ecotrin Low Dose] 81 mg PO DAILY 01/30/21 01/30/21 History Atorvastatin [Lipitor] 40 mg PO HS 01/30/21 01/30/21 History Lacosamide [Vimpat] 200 mg PO BID 01/30/21 01/30/21 History lamoTRIgine [LaMICtal] 100 mg PO TID 01/30/21 01/30/21 History levETIRAcetam [Keppra] 1,500 mg PO BID 01/30/21 01/30/21 History Allergies Allergy/AdvReac Type Severity Reaction Status Date / Time codeine Allergy Rash/Hives Verified 01/30/21 07:30 erythromycin base Allergy Rash/Hives Verified 01/30/21 07:30 Iodinated Contrast Media Allergy Rash/Hives Verified 01/30/21 07:30 [Iodinated Contrast Media - IV Dye] Penicillins Allergy Rash/Hives Verified 01/30/21 07:30 radioactive serum Allergy Rash/Hives Uncoded 01/30/21 07:30 Physical Exam Vitals: Vital Signs Temp Pulse Pulse Resp BP BP Pulse Ox 01/30/21 12:00 79 113/68 97 01/30/21 10:31 98.2 F 85 109/65 96 01/30/21 10:01 98.6 F 87 12 110/64 01/30/21 09:51 98.6 F 91 12 117/73 95 01/30/21 08:00 92 103/68 97 01/30/21 06:52 92 16 131/71 97 01/30/21 03:42 97.7 F 91 20 130/71 97 Intake and Output 01/29/21 01/30/21 01/30/21 22:59 06:59 14:59 Intake Total 0 Balance 0 Intake: Blood Product 0 Rc As-1 Unit 0 [id number] Other: Weight 61.235 kg GENERAL EXAM: Patient is sleepy but arousable. Unable to communicate. HEENT: Normocephalic. Normal reaction of pupils, equal size, normal range of extraocular motion. No erythema or exudates in the throat. NECK: No masses, no nuchal rigidity. CHEST: No chest wall deformity. LUNGS: Equal air entry with no crackles or wheeze. HEART: S1 and S2 normal w ABDOMEN: No hepatosplenomegaly, normal bowel sounds, no guarding or rigidity. SKIN: No rashes CENTRAL NERVOUS SYSTEM: No focal deficits. EXTREMITIES: No cyanosis, clubbing or edema. Results 01/30/21 04:52 01/30/21 04:52 Cardiac Enzymes 01/30/21 01/30/21 Range/Units 04:52 04:52 AST 28 (17-59) U/L Troponin I 0.175 H* (0.000-0.034) ng/mL Coagulation 01/30/21 Range/Units 04:52 PT 9.6 (9.0-12.0) sec APTT 18.1 L (22.0-30.0) sec CBC 01/30/21 Range/Units 04:52 WBC 3.5 L (3.8-10.6) k/uL RBC 2.02 L (4.30-5.90) m/uL Hgb 6.1 L* (13.0-17.5) gm/dL Hct 19.3 L* (39.0-53.0) % Plt Count 251 (150-450) k/uL Comprehensive Metabolic Panel 01/30/21 Range/Units 04:52 Sodium 136 L (137-145) mmol/L Potassium 4.0 (3.5-5.1) mmol/L Chloride 107 (98-107) mmol/L Carbon Dioxide 17 L (22-30) mmol/L BUN 42 H (9-20) mg/dL Creatinine 1.68 H (0.66-1.25) mg/dL Glucose 97 (74-99) mg/dL Calcium 10.5 H (8.4-10.2) mg/dL AST 28 (17-59) U/L ALT 15 (4-49) U/L Alkaline Phosphatase 133 H (38-126) U/L Total Protein 6.8 (6.3-8.2) g/dL Albumin 4.3 (3.5-5.0) g/dL Current Medications Generic Name Dose Route Start Last Admin Trade Name Freq PRN Reason Stop Dose Admin Acetaminophen 650 mg 01/30/21 12:10 Acetaminophen Tab 325 Mg Tab PO Q6HR PRN Fever and/ or Mild Pain Atorvastatin Calcium 40 mg 01/30/21 21:00 Atorvastatin 40 Mg Tab PO HS ALTA Gabapentin 300 mg 01/30/21 16:00 Gabapentin 300 Mg Cap PO TID ALTA Lacosamide 200 mg 01/30/21 21:00 Lacosamide 50 Mg Tablet PO BID ALTA Lamotrigine 100 mg 01/30/21 16:00 Lamotrigine 100 Mg Tab PO TID [facility] Levetiracetam 1,500 mg 01/30/21 12:15 Levetiracetam 750 Mg Tab PO BID [facility] Morphine Sulfate 4 mg 01/30/21 06:13 Morphine Sulfate 4 Mg/Ml Syringe IV Q4HR PRN Severe Pain Naloxone HCl 0.2 mg 01/30/21 06:13 Naloxone 0.4 Mg/Ml 1 Ml Vial IV Q2M PRN Opioid Reversal Ondansetron HCl 4 mg 01/30/21 06:13 Ondansetron 4 Mg/2 Ml Vial IVP Q8HR PRN Nausea And Vomiting Pantoprazole Sodium 40 mg 01/30/21 09:00 01/30/21 08:21 Pantoprazole 40 Mg/10 Ml Vial IV 40 mg DAILY ALTA Administration Pantoprazole Sodium 40 mg 01/30/21 21:00 Pantoprazole 40 Mg/10 Ml Vial IVP BID [facility] Intake and Output 01/29/21 01/30/21 01/30/21 22:59 06:59 14:59 Intake Total 0 Balance 0 Intake: Blood Product 0 Rc As-1 Unit 0 [id number] Other: Weight 61.235 kg 01/30/21 04:52 01/30/21 04:52 EKG Interpretations (text) Sinus rhythm without any acute changes Assessment and Plan (1) Troponin level elevated Current Visit: Yes Status: Acute Code(s): R77.8 - OTHER SPECIFIED ABNORMALITIES OF PLASMA PROTEINS SNOMED Code(s): 251093703 (2) Troponin level elevated Current Visit: Yes Status: Acute Code(s): R77.8 - OTHER SPECIFIED ABNORMALITIES OF PLASMA PROTEINS SNOMED Code(s): 082988563 (3) Anemia Current Visit: Yes Status: Acute Code(s): D64.9 - ANEMIA, UNSPECIFIED SNOMED Code(s): 818191452 (4) Chest pain Current Visit: Yes Status: Acute Code(s): R07.9 - CHEST PAIN, UNSPECIFIED SNOMED Code(s): 88162547 (5) GI bleed Current Visit: Yes Status: Acute Code(s): K92.2 - GASTROINTESTINAL HEMORRHAGE, UNSPECIFIED SNOMED Code(s): 43763278 (6) Abnormal computed tomography scan Current Visit: Yes Status: Acute Code(s): R93.89 - ABNORMAL FINDINGS ON DX IMAGING OF OTH BODY STRUCTURES SNOMED Code(s): 114688012 Plan: This patient is admitted with anemia continued to be investigated and treated. Patient also has moderate renal failure. Computed tomography scan is size to possible multiple myeloma or metastatic lesions. These may explain the patient's chest pain. The troponin is elevated which could be related to abnormal renal function and also anemia and hypoxia. EKG did not reveal any acute changes. Echo did not show wall motion abnormalities. At this point we'll continue with medical therapy. We'll follow the trend of the troponins. Further evaluation of his bone lesions need to be considered. We will follow
--- NOTE | 2021-01-30 14:35 | P.CONS ---
<Eryn Young - Last Filed: 01/30/21 22:24> History of Present Illness - Reason for Consult Consult date: 01/30/21 Suspicious bone lesions, anemia Requesting physician: Alma Monae - History of Present Illness This is a 60-year-old gentleman who at baseline is unable to advocate for self.. He has an extensive medical history including: hypertension, CVA, GERD, sezure disorder and Multiple Myeloma.This is a very nice patient,mentally challenged, who presented with acute back pain in ,without significant trauma,he was taken to ER by his mother on 10/03/2016,he had a Xray of lumbar spine which revealed compression deformity at L1,CT scan of lumbar spine showed acute pathologic compression fracture at L1 with estimated 50% spinal canal stenosis.He was transferred to [facility] [place],MRI of lumbar spine done on 10/04/2017 revealed severe compression fracture at L1,50% height loss,soft tissue extension with retropulsion measuring 1.3cm,markedly hetergeneous bone marrow signal and 1.5cm enhancing lesion at S1. CBC done on 10/04/2016 revealed mild anemia (11.2gm/dl),,CMP revealed low sodium (124),normal calcium and creatinine. On 12/26/2016,SPEP and immunofixation were normal,serum kappa level was 763.3mg/l,kappa/lambda ratio was 77.34,he was scheduled for a bone marrow biopsy but his mom did not bring him in. Finally,he had to put the patient overnight in the hospital to perform a bone marrow biopsy on 02/22/2017 which revealed 40% kappa restricted monoclonal plasma cells,normal molecular and cytogenetic studies. The patient is extremely poor historian,his mother,who is his caregiver,is with him all the time. 05/07/2017:no treatment has been started yet,the mother received revlimd/ decadron and all medication needed. He has been fighting his mother about taking any meds and he has been refusing blood work,the mother has POA and she is his legal guardian. There is no recent change in behavior 05/31/2017: According to the mother,he has had 2 cycles,that in opposite to what she told me last time,there is no way to get him to have IV zometa. according to mother,he has been tolerating revlimid well,I did go over the medications in details with her,per his CBC,there is no changes (a degree of pancytopenia)that he is taking it,we did send visiting nurse but the mother refused to let them in.also kappa/lambda level done on 05/24/2017 did not indicate any changes. We verified with pharmacy,it has been delivered twice.She did not bring the bottle of medications with her today. 07/26/2017:the patient is here with his mom,she stated that she has been giving him his meds as prescribed,she did not notice any side effects of change in his behavior. 08/23/2017: The patient is here with his mom and uncle,repeat myeloma panel last month revealed no response at all. His mom still insisting that she is regularly giving him his meds,I still have doubts about that,I did not notice any change in CBC,myeloma panel to indicate that. According to family,there has been no change in his behavior The question of adherence to the medication was at question, Patient and son did not follow-up after this visit. Letters have been sent regarding the same. He now presents to hospital with complaints of pain. Patient is non-verbal. Review of Systems ROS unobtainable: due to mental status Past Medical History Past Medical History: CVA/TIA, GERD/Reflux, Hypertension, Osteoarthritis (OA), Pneumonia, Seizure Disorder, Skin Disorder, Sleep Apnea/CPAP/BIPAP Additional Past Medical History / Comment(s): epilepsy, constipation, cognitively impaired, headaches, bronchitis, O2 PRN nasal canula or mask, osteoporosis, sores from scratching, hypoglycemia, cerebral palsy-walks only a little-does fall per mom, wheelchair, bleeds easily, fell and fx back in 2 places 11/23, pt uses wheelchair for ambulation at home History of Any Multi-Drug Resistant Organisms: None Reported Past Surgical History: Ear Surgery, Orthopedic Surgery Additional Past Surgical History / Comment(s): ORIF rt hip has plate/screws. Past Anesthesia/Blood Transfusion Reactions: No Reported Reaction Past Psychological History: Anxiety Additional Psychological History / Comment(s): cerebral palsy, minimal speech- takes long time to pronounce words Smoking Status: Never smoker Past Alcohol Use History: None Reported Past Drug Use History: None Reported - Past Family History Father History Unknown: Yes Mother Family Medical History: Cancer, Deep Vein Thrombosis (DVT), Myocardial Infarction ([place]), Pulmonary Embolus Additional Family Medical History / Comment(s): breast ovarian and uterine cancer, stroke x 4 Medications and Allergies Home Medications Medication Instructions Recorded Confirmed Type Gabapentin [Neurontin] 300 mg PO TID 07/27/15 01/30/21 History Acetaminophen Tab [Tylenol Tab] 1,000 mg PO Q6HR PRN 01/30/21 01/30/21 History Aspirin EC [Ecotrin Low Dose] 81 mg PO DAILY 01/30/21 01/30/21 History Atorvastatin [Lipitor] 40 mg PO HS 01/30/21 01/30/21 History Lacosamide [Vimpat] 200 mg PO BID 01/30/21 01/30/21 History lamoTRIgine [LaMICtal] 100 mg PO TID 01/30/21 01/30/21 History levETIRAcetam [Keppra] 1,500 mg PO BID 01/30/21 01/30/21 History Albuterol Nebulized [Ventolin 2.5 mg INHALATION 1000,1400,2000 02/02/21 02/02/21 History Nebulized] Allergies Allergy/AdvReac Type Severity Reaction Status Date / Time codeine Allergy Rash/Hives Verified 01/30/21 07:30 erythromycin base Allergy Rash/Hives Verified 01/30/21 07:30 Iodinated Contrast Media Allergy Rash/Hives Verified 01/30/21 07:30 [Iodinated Contrast Media - IV Dye] Penicillins Allergy Rash/Hives Verified 01/30/21 07:30 radioactive serum Allergy Rash/Hives Uncoded 01/30/21 07:30 Physical Exam Vitals: Vital Signs Temp Pulse Pulse Resp BP BP Pulse Ox 01/30/21 13:54 97.5 F L 78 16 116/70 97 01/30/21 13:00 84 16 109/66 96 01/30/21 12:00 79 113/68 97 01/30/21 10:31 98.2 F 85 109/65 96 01/30/21 10:01 98.6 F 87 12 110/64 01/30/21 09:51 98.6 F 91 12 117/73 95 01/30/21 08:00 92 103/68 97 01/30/21 06:52 92 16 131/71 97 01/30/21 03:42 97.7 F 91 20 130/71 97 Intake and Output 01/29/21 01/30/21 01/30/21 22:59 06:59 14:59 Intake Total 360 Balance 360 Intake: Blood Product 310 Rc As-1 Unit 310 [id number] Rc As-1 Unit 0 [id number] Other 50 Rc As-1 Unit 50 [id number] Other: Weight 61.235 kg non verbal no acute distress points to chest (pain) Head NCNT Neck supple Abdomen: NDNT Ext: no edema Heart: RRR Lungs: No increase Results CBC & Chem 7: 01/30/21 16:55 01/30/21 17:38 Labs: Abnormal Lab Results - Last 24 Hours (Table) 01/30/21 01/30/21 01/30/21 Range/Units 04:52 04:52 04:52 WBC 3.5 L (3.8-10.6) k/uL RBC 2.02 L (4.30-5.90) m/uL Hgb 6.1 L* (13.0-17.5) gm/dL Hct 19.3 L* (39.0-53.0) % RDW 16.5 H (11.5-15.5) % APTT 18.1 L (22.0-30.0) sec D-Dimer 3.39 H (<0.60) mg/L FEU Sodium 136 L (137-145) mmol/L Carbon Dioxide 17 L (22-30) mmol/L BUN 42 H (9-20) mg/dL Creatinine 1.68 H (0.66-1.25) mg/dL Calcium 10.5 H (8.4-10.2) mg/dL Phosphorus 5.1 H (2.5-4.5) mg/dL Magnesium 1.5 L (1.6-2.3) mg/dL Alkaline Phosphatase 133 H (38-126) U/L Troponin I (0.000-0.034) ng/mL Crossmatch 01/30/21 01/30/21 01/30/21 Range/Units 04:52 06:20 11:04 WBC (3.8-10.6) k/uL RBC (4.30-5.90) m/uL Hgb (13.0-17.5) gm/dL Hct (39.0-53.0) % RDW (11.5-15.5) % APTT (22.0-30.0) sec D-Dimer (<0.60) mg/L FEU Sodium (137-145) mmol/L Carbon Dioxide (22-30) mmol/L BUN (9-20) mg/dL Creatinine (0.66-1.25) mg/dL Calcium (8.4-10.2) mg/dL Phosphorus (2.5-4.5) mg/dL Magnesium (1.6-2.3) mg/dL Alkaline Phosphatase (38-126) U/L Troponin I 0.175 H* 1.040 H* (0.000-0.034) ng/mL Crossmatch See Detail CT scan - chest: report reviewed CT Scan - head: report reviewed Assessment and Plan (1) Multiple myeloma Current Visit: Yes Status: Acute Code(s): C90.00 - MULTIPLE MYELOMA NOT HAVING ACHIEVED REMISSION SNOMED Code(s): 423217337 (2) Abnormal computed tomography scan Current Visit: Yes Status: Acute Code(s): R93.89 - ABNORMAL FINDINGS ON DX IMAGING OF OTH BODY STRUCTURES SNOMED Code(s): 703113037 (3) Anemia Current Visit: Yes Status: Acute Code(s): D64.9 - ANEMIA, UNSPECIFIED SNOMED Code(s): 914630494 Plan: Last seen by Dr. Chavez in 2017, there was concern at that time of his mother not adhering to medication he was prescribed. They have not followed up since and unclear if they have followed with any other onclogist for the myeloma diagnosis since this time. Normocytic Anemia: - Transfused today - Transfuse less than 7 Hypercalcemia: - Likely secondary to progressive lytic lesions in bone - Recheck in am after IV hydration and attempt clarification if treatment has been received for myeloma since 2017 Nuclear Bone Scan Repeat Myeloma and Anemia Panels Review office notes. Patients mother admits to not pursuing treatment of multiple myeloma and does not seem to understand they reason and need for treatment. She has not taken Timoteo for further evaluation or treatment in regards to Multiple myeloma diagnosis since 2017 Physician Attest: I have completed the full history and physical and agree with above dictation, dictated as a scribe <Andre,Natan - Last Filed: 02/03/21 13:43> Physical Exam Vitals: Vital Signs Temp Pulse Pulse Resp BP Pulse Ox 02/03/21 09:08 17 02/03/21 07:48 70 12 02/03/21 07:38 72 16 96 02/03/21 07:35 98.5 F 72 17 116/62 96 02/03/21 04:29 98.2 F 71 14 125/74 99 02/02/21 21:20 80 02/02/21 21:10 82 02/02/21 20:58 99.5 F 74 14 111/60 94 L 02/02/21 17:21 76 02/02/21 17:12 80 Intake and Output 02/02/21 02/03/21 02/03/21 22:59 06:59 14:59 Intake Total 1520 Balance 1520 Intake: Intake, IV Titration 900 Amount Lactated Ringers 1,000 ml 900 @ 75 mls/hr IV .[id number] ALTA Rx#:[id number] Oral 620 Other: Voiding Method Urinal Diaper # Voids 4 Results CBC & Chem 7: 02/03/21 00:55 02/02/21 08:57 Labs: Abnormal Lab Results - Last 24 Hours (Table) 02/01/21 02/02/21 02/03/21 Range/Units 07:46 08:57 00:55 WBC 2.2 L (3.8-10.6) k/uL RBC 2.90 L (4.30-5.90) m/uL Hgb 8.4 L (13.0-17.5) gm/dL Hct 26.7 L (39.0-53.0) % RDW 16.1 H (11.5-15.5) % Lymphocytes # 0.3 L (1.0-4.8) k/uL Lactate Dehydrogenase 684 H (313-618) U/L Tot Complement (CH50) >98 H (42 - 95) U/mL Microbiology - Last 24 Hours (Table) 02/01/21 10:19 Blood Culture - Preliminary Blood No Growth after 48 hours 02/01/21 10:16 Blood Culture - Preliminary Blood No Growth after 48 hours Assessment and Plan Plan: As above. Patient's records from the office or extensively reviewed. Case was discussed in detail with the mother. She is the POA, as the patient is unable to make decisions. - Records from the office indicated that the mother initially had stated that the patient was fighting her when she tried to give her the prescribed medications. She then stated that he was taking medications as prescribed. However labs did not show any response at all due to which Dr. Lund was doubtful that the patient was being given the medications. He recommended switching to a parenteral regimen which could be admits to and in the office. The patient's mother at that time stated that she would think about this, and ca ll back with the decision, but did not follow-up after that. Adult Protective Services were informed about the situation by the office. Based on my current discussion, her history is of somewhat doubtful reliability. It does appear that she has not sought any treatment for myeloma for him since her last visit in the office in 2017. She gave a somewhat rambling and incoherent account of stopping multiple medications because she did not think it was good for him. She also stated that his primary care physician was apparently keeping an eye on him for all his problems including a myeloma, b ut on subsequent questioning she contracted the same. She stated that she did not trust the treatment given by Dr. Chavez, as he had told her that this was a bone marrow cancer but he was not treating the bone marrow and only giving pills !! I explained the pathophysiology of myeloma, and treatment modalities. She was sure that the treatment prescribed was very consistent with standard of care. I informed her that if she was thinking about bone marrow transplant, it is typically not performed unless the patient has been put into remission with systemic medical therapy. She stated that she did not believe that, as she knew several people who had had they're "bone marrow treated" directly without any other treatment. Despite my best efforts, the patient remains resistant to my explanations. I also informed her clearly that based on his clinical presentation he most likely had progressive disease. The above was discussed in detail with the admitting service. At this time for comprehension of the patient's condition appears to be very suboptimal, despite detailed discussions with Dr. Chavez in the past, and with myself this admission. She appears to be very reluctant to change her mind regarding her use about the patient's disease. As noted, she has stated that she does not trust the treatment that was prescribed by our practice, which is quite consistent with the standard of care. Therefore this admission I would recommend that we work with the admitting service and other consultants to try to stabilize him as best as possible this admission. Subsequently it would be best if she and the patient pursued second opinions with other oncologists.
[2021-01-30 17:07] LABS: Basophils % (A) 0 %; Eosinophils % (A) 1 %; HCT 26.9 % (39.0-53.0); Lymphocytes # (A) 0.6 k/uL (1.0-4.8); Lymphocytes % (A) 13 %; MCH 31.9 pg (25.0-35.0); Mean Platelet Volume 6.9; Monocytes # (A) 0.1 k/uL (0-1.0); Monocytes % (A) 3 %; Neutrophils # (A) 4.1 k/uL (1.3-7.7); Neutrophils % (A) 83 %; Platelet Count 224 k/uL (150-450); RBC 2.96 m/uL (4.30-5.90); RDW 15.3 % (11.5-15.5); WBC 4.9 k/uL (3.8-10.6)
[2021-01-30 17:11] LABS: HGB 9.4 gm/dL (13.0-17.5)
[2021-01-30 18:17] LABS: Potassium 4.8 mmol/L (3.5-5.1)
[2021-01-30 18:38] LABS: Protein, Total 6.3 g/dL (6.2-8.2)
--- NOTE | 2021-01-30 19:10 | P.HPIM ---
History of Present Illness H&P Date: 01/30/21 Chief Complaint: Left-sided chest pain Mr. Harrington is a 60-year-old gentleman with history of cerebral palsy, seizure disorder, stroke/TIA, GERD, hypertension, obstructive sleep apnea brought in by his mother for complaints of chest pain. Patient cannot communicate so the hi story was taken from his mother who is at his bedside. His mother states that for the past 2-3 days patient has been pointing to the left side of the chest and complaining about pain. His mother thought he was having GI symptoms and gave him some gas pills that helped with his symptoms to some extent. But as he continuously pointed to the left side of his chest he mother brought him for further evaluation. She also mentions that she noted that he was having a seizure-like episode one day prior to bringing him to the hospital. She mentions that patient has history of seizures, he is on Keppra and Lamictal at home. She denied about any fevers, difficulty in breathing that she noticed at home. She states that at baseline he walks with the help of walker and can come indicate with her when he is hungry. She did not mention any change in his baseline activity. Complete review of systems could not be done, due to limitations in communication. In the ER at the time of admission, patient's vitals were temperature 97.7, heart rate 91, respiratory rate 20, blood pressure 1:30/71, saturating at 97% on room air. On reviewing his labs white count of 3.5, hemoglobin 6.1 with hematocrit 19.3, platelet count 251. PT of 9.6, INR 0.9, d-dimer 3.39. Sodium 136 compression 4, chloride 107, bicarb 17, BUN 42, creatinine 1.68. Calcium is 10.5, phosphorus 5.1, magnesium 1.5 troponin 0.175. Coronavirus negative. Patient had a CAT scan of the brain showing no acute hemorrhage. As his d-dimer was elevated, he had CT and she of the chest showing no acute pulmonary embolism but degenerative changes of the spine with diffuse severe osteoporosis. Diffuse lytic lesions related to multiple myeloma. Scattered osteoblastic lesions. EKG showing left ventricle hypertrophy with normal sinus rhythm. Echocardiogram showing ejection fraction of 55%. Past Medical History Past Medical History: CVA/TIA, GERD/Reflux, Hypertension, Osteoarthritis (OA), Pneumonia, Seizure Disorder, Skin Disorder, Sleep Apnea/CPAP/BIPAP Additional Past Medical History / Comment(s): epilepsy, constipation, cognitively impaired, headaches, bronchitis, O2 PRN nasal canula or mask, osteoporosis, sores from scratching, hypoglycemia, cerebral palsy-walks only a little-does fall per mom, wheelchair, bleeds easily, fell and fx back in 2 place s 11/23, pt uses wheelchair for ambulation at home History of Any Multi-Drug Resistant Organisms: None Reported Past Surgical History: Ear Surgery, Orthopedic Surgery Additional Past Surgical History / Comment(s): ORIF rt hip has plate/screws. Past Anesthesia/Blood Transfusion Reactions: No Reported Reaction Past Psychological History: Anxiety Additional Psychological History / Comment(s): cerebral palsy, minimal speech- takes long time to pronounce words Smoking Status: Never smoker Past Alcohol Use History: None Reported Past Drug Use History: None Reported - Past Family History Father History Unknown: Yes Mother Family Medical History: Cancer, Deep Vein Thrombosis (DVT), Myocardial Infarction ([place]), Pulmonary Embolus Additional Family Medical History / Comment(s): breast ovarian and uterine cancer, stroke x 4 Medications and Allergies Home Medications Medication Instructions Recorded Confirmed Type Gabapentin [Neurontin] 300 mg PO TID 07/27/15 01/30/21 History Acetaminophen Tab [Tylenol] 1,000 mg PO Q6HR PRN 01/30/21 01/30/21 History Atorvastatin [Lipitor] 40 mg PO HS 01/30/21 01/30/21 History Lacosamide [Vimpat] 200 mg PO BID 01/30/21 01/30/21 History lamoTRIgine [LaMICtal] 100 mg PO TID 01/30/21 01/30/21 History levETIRAcetam [Keppra] 1,500 mg PO BID 01/30/21 01/30/21 History Albuterol Nebulized [Ventolin 2.5 mg INHALATION 1000,1400,2000 02/02/21 02/02/21 History Nebulized] Metoprolol Tartrate [Lopressor] 12.5 mg PO DAILY 30 Days #30 tab 02/07/21 Rx Pantoprazole [Protonix] 40 mg PO DAILY 30 Days #30 02/07/21 Rx tablet. polyethylene glycoL 3350 [Miralax] 17 gm PO HS 30 Days #30 powd.pack 02/07/21 Rx Allergies Allergy/AdvReac Type Severity Reaction Status Date / Time codeine Allergy Rash/Hives Verified 01/30/21 07:30 erythromycin base Allergy Rash/Hives Verified 01/30/21 07:30 Iodinated Contrast Media Allergy Rash/Hives Verified 01/30/21 07:30 [Iodinated Contrast Media - IV Dye] Penicillins Allergy Rash/Hives Verified 01/30/21 07:30 radioactive serum Allergy Rash/Hives Uncoded 01/30/21 07:30 Physical Exam Vitals: Vital Signs Temp Pulse Pulse Resp BP BP Pulse Ox 01/30/21 10:31 98.2 F 85 109/65 96 01/30/21 10:01 98.6 F 87 12 110/64 01/30/21 09:51 98.6 F 91 12 117/73 95 01/30/21 08:00 92 103/68 97 01/30/21 06:52 92 16 131/71 97 01/30/21 03:42 97.7 F 91 20 130/71 97 Intake and Output 01/29/21 01/30/21 01/30/21 22:59 06:59 14:59 Intake Total 0 Balance 0 Intake: Blood Product 0 Rc As-1 Unit 0 [id number] Other: Weight 61.235 kg GENERAL: The patient is alert , can follow simple commands not in any acute distress HEENT: Pupils are round and equally reacting to light. EOMI. No scleral icterus. Positive for pallor CARDIOVASCULAR: S1 and S2 present. No additional sounds. PULMONARY: Chest is clear to auscultation, slightly decreased at the lower lung bases. No wheezes or crackles. ABDOMEN: Soft, nontender, nondistended, normoactive bowel sounds. No palpable organomegaly. MUSCULOSKELETAL: No joint swelling or deformity. EXTREMITIES: No cyanosis, clubbing, no pedal edema. NEUROLOGICAL: Patient is able to follow simple commands. He is able to squeeze my hands with both his upper extremities. Coil Tier strength is less in the right upper extremity compared to the left, mom mentions that he he is weak on the right side. He was able to lift both of his lower extremities. SKIN: no rash Results CBC & Chem 7: 02/04/21 04:59 02/07/21 05:05 Labs: Abnormal Lab Results - Last 24 Hours (Table) 01/30/21 01/30/21 01/30/21 Range/Units 04:52 04:52 04:52 WBC 3.5 L (3.8-10.6) k/uL RBC 2.02 L (4.30-5.90) m/uL Hgb 6.1 L* (13.0-17.5) gm/dL Hct 19.3 L* (39.0-53.0) % RDW 16.5 H (11.5-15.5) % APTT 18.1 L (22.0-30.0) sec D-Dimer 3.39 H (<0.60) mg/L FEU Sodium 136 L (137-145) mmol/L Carbon Dioxide 17 L (22-30) mmol/L BUN 42 H (9-20) mg/dL Creatinine 1.68 H (0.66-1.25) mg/dL Calcium 10.5 H (8.4-10.2) mg/dL Phosphorus 5.1 H (2.5-4.5) mg/dL Magnesium 1.5 L (1.6-2.3) mg/dL Alkaline Phosphatase 133 H (38-126) U/L Troponin I (0.000-0.034) ng/mL Crossmatch 01/30/21 01/30/21 Range/Units 04:52 06:20 WBC (3.8-10.6) k/uL RBC (4.30-5.90) m/uL Hgb (13.0-17.5) gm/dL Hct (39.0-53.0) % RDW (11.5-15.5) % APTT (22.0-30.0) sec D-Dimer (<0.60) mg/L FEU Sodium (137-145) mmol/L Carbon Dioxide (22-30) mmol/L BUN (9-20) mg/dL Creatinine (0.66-1.25) mg/dL Calcium (8.4-10.2) mg/dL Phosphorus (2.5-4.5) mg/dL Magnesium (1.6-2.3) mg/dL Alkaline Phosphatase (38-126) U/L Troponin I 0.175 H* (0.000-0.034) ng/mL Crossmatch See Detail Thrombosis Risk Factor Assmnt - Choose All That Apply Each Factor Represents 1 point: Age 41-60 years Thrombosis Risk Factor Assessment Total Risk Factor Score: 1 Thrombosis Risk Factor Assessment Level: Low Risk Assessment and Plan Assessment: ASSESSMENT Anemia - unclear if it is acute or chronic Elevated d-dimer Acute kidney injury Non-ST elevation [place] History of seizure disorder Cerebral palsy History of stroke with right-sided weakness Obstructive sleep apnea GERD MGUS Multiple osteolytic lesions of the bones Scattered osteoblastic lesions PLAN: Patient's repeat troponins have been elevated at 1.040 and 2.230. Cardiology on board, has been made aware of his elevated troponins. Patient is currently being transfused with PRBCs, we will repeat CBC. Patient had an echocardiogram showing ejection fraction greater than 55. Oncology has evaluated the patient and recommended nuclear bone scan. GI has been consulted for workup of anemia. The treatment plan was discussed in detail with the patient's mother at bedside.I spent almost 45 minutes at the bedside discussing with his mother about the complexity of his medical condition. She was tearful, she states that she is depressed, as she lost a lot of family members recently. I tried to console her. Overall prognosis is guarded. Further determinations to follow depending on the progress of the patient. Later in the day- spoke with Dr. Guzmán, environmental professional fermentation engineer regarding the elevation of troponins. Discussed that he would be at very high risk to take him to the [facility] now and also not a good candidate for anticoagulation due to very low Hb levels, and that his vitals are stable and we will repeat CBC and continue to monitor closely.
[2021-01-30 19:52] LABS: % Iron Saturation 39.06 (15.00-50.00)
--- NOTE | 2021-01-30 19:56 | CONS ---
CONSULTATION DATE OF DICTATION: 01/30/2021 REASON FOR CONSULTATION: Severe symptomatic anemia. HISTORY OF PRESENT ILLNESS: The patient is a 60-year-old white male with a history of cerebral palsy who was brought to the emergency room by his mother because of chest pain. According to the patient's mother, he woke up yesterday morning and he was having some chest discomfort and also having some heartburn. They became very concerned and hence she brought him to the emergency room early this morning. The patient is quite sleepy, and most of the questions were answered by the patient's mother, who was at the bedside. In the ER he was noted to have a hemoglobin of 6.1 g/dL. Hence we are consulted in regard to this issue. The patient's mother states that he was not having any abdominal pain. No rectal bleeding. No nausea, vomiting. No melena. Apparently he had a similar episode about 3 years ago and was seen by Hematology. He had a bone marrow biopsy and aspirate done at that time, results of which are not available at the time of this dictation. It is unclear whether he followed with Dr. Chavez after that time. PAST MEDICAL HISTORY: Significant for hypertension, cerebral palsy, hyperlipidemia, history of degenerative joint disease, CVA in the past, seizure disorder. PAST SURGICAL HISTORY: Ear surgery, right hip ORIF. MEDICATIONS: Medications at home include Neurontin, metoprolol, phenobarbital, Zantac, Keppra, Tylenol, Ventolin, Feosol, aspirin, vitamin D3. ALLERGIES: CODEINE, ERYTHROMYCIN, IV DYE, PENICILLIN. SOCIAL HISTORY: No smoking. No alcohol use. FAMILY HISTORY: Unremarkable. REVIEW OF SYSTEMS: Patient is unable to answer. He is quite sleepy. PHYSICAL EXAMINATION: He appears comfortable. No apparent distress. Vital signs are stable. Blood pressure is 116/70, pulse rate 78, temperature 98.7. HEENT examination unremarkable. Conjunctivae pink. Sclerae anicteric. Oral cavity no lesions. NECK: No JVD or lymph node enlargement. CHEST: Clear to auscultation. HEART: Regular rate and rhythm. ABDOMEN: Soft. It was non-tender, non-distended. Bowel sounds are positive. No organomegaly. EXTREMITIES: No pedal edema. NEUROLOGIC: He is sleepy but answers simple questions. LABS: Labs from today show WBC 3.5, hemoglobin 6.1. Hemoglobin in March of 2017 was 11.6 g/dL. Platelets are 251. PT 9.6, INR 0.9. AST, ALT, T-bilirubin and alkaline phosphatase are within normal limits. BUN is 42, creatinine 1.68. Albumin 4.3. Coronavirus PCR is negative. IMPRESSION: 1. Severe symptomatic anemia which is normocytic. Last hemoglobin from 2017 was 11.9 g/dL. Clinically he does not have any evidence of active ongoing bleeding. At this time, etiology of anemia is unclear, but possibility of GI blood loss and other bone marrow pathology needs to be considered. 2. Chest pain with slightly elevated troponins. Cardiology has been consulted. 3. Elevated BUN and creatinine. 4. History of cerebral palsy. 5. History of hypertension and hyperlipidemia. 6. History of seizure disorder. RECOMMENDATIONS: 1. Obtain iron studies as well as vitamin B12 and serum folate. 2. Obtain stool for Hemoccult blood. 3. Await hematology consultation. 4. No prior history of EGD or colonoscopy in the past, but based on the above results, will consider if he needs to have any endoscopic workup during this hospitalization. 5. Will follow with you closely. Thank you for this consultation. MMODL / IJN: [id number] /
[2021-01-30 20:02] LABS: Ferritin 93.8 ng/mL (22.0-322.0)
[2021-01-30] MEDS: ATORVASTATIN 40 MG TAB PO SCH (20:16)
[2021-01-30] MEDS: LACOSAMIDE 50 MG TABLET PO SCH (20:16)
[2021-01-30] MEDS: GABAPENTIN 300 MG CAP PO SCH ×2 (20:16→22:58)
[2021-01-30] MEDS: lamoTRIgine 100 MG TAB PO SCH ×2 (20:17→22:58)
[2021-01-30] MEDS: PANTOPRAZOLE 40 MG/10 ML VIAL IVP SCH (20:17)
[2021-01-30] MEDS: ACETAMINOPHEN TAB 325 MG TAB PO PRN (20:17)
[2021-01-30 20:27] LABS: Folate, Serum 11.3 ng/mL
[2021-01-31] MEDS ORDERED: SODIUM CHLORIDE 0.9% 1,000 ML IV SCH (10:00)
[2021-01-31 10:22] LABS: Basophils % (A) 0 %; Eosinophils % (A) 1 %; HCT 28.9 % (39.0-53.0); HGB 9.8 gm/dL (13.0-17.5); Lymphocytes # (A) 0.6 k/uL (1.0-4.8); Lymphocytes % (A) 14 %; MCH 30.6 pg (25.0-35.0); MCV 90.1 fL (80.0-100.0); Mean Platelet Volume 6.7; Monocytes # (A) 0.2 k/uL (0-1.0); Monocytes % (A) 5 %; Neutrophils # (A) 3.3 k/uL (1.3-7.7); Neutrophils % (A) 80 %; Platelet Count 231 k/uL (150-450); RBC 3.21 m/uL (4.30-5.90); RDW 15.8 % (11.5-15.5); WBC 4.1 k/uL (3.8-10.6)
[2021-01-31] MEDS: GABAPENTIN 300 MG CAP PO SCH ×3 (10:29→23:12)
[2021-01-31] MEDS: lamoTRIgine 100 MG TAB PO SCH ×3 (10:30→23:12)
[2021-01-31] MEDS: METOPROLOL TARTRATE 12.5 MG TAB PO SCH (10:30)
[2021-01-31] MEDS: PANTOPRAZOLE 40 MG/10 ML VIAL IVP SCH ×2 (10:30→20:15)
[2021-01-31] MEDS: LACOSAMIDE 50 MG TABLET PO SCH ×2 (10:30→20:13)
[2021-01-31 10:42] LABS: Calcium 10.8 mg/dL (8.4-10.2); Magnesium 1.7 mg/dL (1.6-2.3); Phosphorus 5.3 mg/dL (2.5-4.5); Potassium 4.1 mmol/L (3.5-5.1); Total Bilirubin 0.8 mg/dL (0.2-1.3); Total Protein 6.5 g/dL (6.3-8.2)
[2021-01-31 10:49] LABS: Ionized Calcium 6.4 mg/dL (4.5-5.3)
--- NOTE | 2021-01-31 11:08 | P.PN ---
Subjective Mr. Harrington is a 60-year-old gentleman with history of cerebral palsy, seizure disorder, stroke/TIA, GERD, hypertension, obstructive sleep apnea brought in by his mother for complaints of chest pain. Patient cannot communicate so the history was taken from his mother who is at his bedside. His mother states that for the past 2-3 days patient has been pointing to the left side of the chest and complaining about pain. His mother thought he was having GI symptoms and gave him some gas pills that helped with his symptoms to some extent. But as he continuously pointed to the left side of his chest he mother brought him for further evaluation. She also mentions that she noted that he was having a seizure-like episode one day prior to bringing him to the hospital. She mentions that patient has history of seizures, he is on Keppra and Lamictal at home. She denied about any fevers, difficulty in breathing that she noticed at home. She states that at baseline he walks with the help of walker and can come indicate with her when he is hungry. She did not mention any change in his baseline activity. Complete review of systems could not be done, due to limitations in communication. In the ER at the time of admission, patient's vitals were temperature 97.7, heart rate 91, respiratory rate 20, blood pressure 1:30/71, saturating at 97% on room air. On reviewing his labs white count of 3.5, hemoglobin 6.1 with hematocrit 19.3, platelet count 251. PT of 9.6, INR 0.9, d-dimer 3.39. Sodium 136 compression 4, chloride 107, bicarb 17, BUN 42, creatinine 1.68. Calcium is 10.5, phosphorus 5.1, magnesium 1.5 troponin 0.175. Coronavirus negative. Patient had a CAT scan of the brain showing no acute hemorrhage. As his d-dimer was elevated, he had CT and she of the chest showing no acute pulmonary embolism but degenerative changes of the spine with diffuse severe osteoporosis. Diffuse lytic lesions related to multiple myeloma. Scattered osteoblastic lesions. EKG showing left ventricle hypertrophy with normal sinus rhythm. Echocardiogram showing ejection fraction of 55%. 01/31/2021 Patient was evaluated by cardiology for non-ST elevation myocardial infarction not recommending any cardiac catheterization because of his severe anemia and need for regular antiplatelet therapy postcard a catheterization. Patient also has acute renal failure probably from a myeloma proteins and acute tubular necrosis. Patient does have history of multiple myeloma probably noncompliant with medications. Oncology valid the patient patient is undergoing bone scan to evaluate bone lesions for multiple myeloma. Patient received blood transfusion no evidence of acute blood loss patient probably has chronic anemia from anemia of chronic disease. Patient has normocytic anemia. Patient doesn't provide much of the history. 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 Review of systems: Unable to obtain at this time due to his overall clinical condition All inpatient medications were reviewed and appropriate changes in these medications as dictated in the interval history and assessment and plan. Objective - Vital Signs Vital signs: Vital Signs Temp 96.6 F L 01/31/21 08:00 Pulse 74 01/31/21 08:00 Resp 16 01/31/21 08:00 BP 110/63 01/31/21 08:00 Pulse Ox 97 01/31/21 08:00 Intake & Output 01/30/21 01/31/21 01/31/21 18:59 06:59 18:59 Intake Total 670 Output Total 500 Balance 670 -500 Weight 61.1 kg Intake: Blood Product 620 Rc As-1 Unit 310 [id number] Rc As-1 Unit 310 [id number] Other 50 Rc As-1 Unit 50 [id number] Output: Urine 500 Other: Voiding Method Urinal Urinal # Voids 1 - Exam GENERAL: The patient is alert , can follow simple commands not in any acute distress HEENT: Pupils are round and equally reacting to light. EOMI. No scleral icterus. Positive for pallor CARDIOVASCULAR: S1 and S2 present. No additional sounds. PULMONARY: Chest is clear to auscultation, slightly decreased at the lower lung bases. No wheezes or crackles. ABDOMEN: Soft, nontender, nondistended, normoactive bowel sounds. No palpable organomegaly. MUSCULOSKELETAL: No joint swelling or deformity. EXTREMITIES: No cyanosis, clubbing, no pedal edema. NEUROLOGICAL: Patient is able to follow simple commands. He is able to squeeze my hands with both his upper extremities. Obstetrics/Gynecology Nurse strength is less in the right upper extremity compared to the left, mom mentions that he he is weak on the right side. He was able to lift both of his lower extremities. SKIN: no rash - Labs CBC & Chem 7: 01/31/21 09:44 01/31/21 09:44 Labs: Abnormal Lab Results - Last 24 Hours (Table) 01/30/21 01/30/21 01/30/21 Range/Units 04:52 06:20 11:04 RBC (4.30-5.90) m/uL Hgb (13.0-17.5) gm/dL Hct (39.0-53.0) % RDW (11.5-15.5) % Lymphocytes # (1.0-4.8) k/uL ESR 87 H (0-15) mm/hr Chloride (98-107) mmol/L Carbon Dioxide (22-30) mmol/L BUN (9-20) mg/dL Creatinine (0.66-1.25) mg/dL Glucose (74-99) mg/dL Calcium (8.4-10.2) mg/dL Ionized Calcium Sheryl (4.5-5.3) mg/dL Phosphorus (2.5-4.5) mg/dL Lactate Dehydrogenase (313-618) U/L Troponin I 1.040 H* (0.000-0.034) ng/mL PTH Intact (14.0-72.0) pg/mL Crossmatch See Detail 01/30/21 01/30/21 01/30/21 Range/Units 14:00 16:55 17:38 RBC 2.96 L (4.30-5.90) m/uL Hgb 9.4 L D (13.0-17.5) gm/dL Hct 26.9 L (39.0-53.0) % RDW (11.5-15.5) % Lymphocytes # 0.6 L (1.0-4.8) k/uL ESR (0-15) mm/hr Chloride (98-107) mmol/L Carbon Dioxide (22-30) mmol/L BUN (9-20) mg/dL Creatinine (0.66-1.25) mg/dL Glucose (74-99) mg/dL Calcium (8.4-10.2) mg/dL Ionized Calcium Sheryl (4.5-5.3) mg/dL Phosphorus (2.5-4.5) mg/dL Lactate Dehydrogenase 762 H (313-618) U/L Troponin I 2.230 H* (0.000-0.034) ng/mL PTH Intact (14.0-72.0) pg/mL Crossmatch 01/30/21 01/30/21 01/31/21 Range/Units 17:38 17:38 09:44 RBC 3.21 L (4.30-5.90) m/uL Hgb 9.8 L (13.0-17.5) gm/dL Hct 28.9 L (39.0-53.0) % RDW 15.8 H (11.5-15.5) % Lymphocytes # 0.6 L (1.0-4.8) k/uL ESR (0-15) mm/hr Chloride 112 H (98-107) mmol/L Carbon Dioxide 14 L (22-30) mmol/L BUN 36 H (9-20) mg/dL Creatinine 1.65 H (0.66-1.25) mg/dL Glucose 119 H (74-99) mg/dL Calcium 11.0 H (8.4-10.2) mg/dL Ionized Calcium Sheryl (4.5-5.3) mg/dL Phosphorus (2.5-4.5) mg/dL Lactate Dehydrogenase (313-618) U/L Troponin I (0.000-0.034) ng/mL PTH Intact 10.2 L (14.0-72.0) pg/mL Crossmatch 01/31/21 Range/Units 09:44 RBC (4.30-5.90) m/uL Hgb (13.0-17.5) gm/dL Hct (39.0-53.0) % RDW (11.5-15.5) % Lymphocytes # (1.0-4.8) k/uL ESR (0-15) mm/hr Chloride 113 H (98-107) mmol/L Carbon Dioxide 16 L (22-30) mmol/L BUN 38 H (9-20) mg/dL Creatinine 1.67 H (0.66-1.25) mg/dL Glucose (74-99) mg/dL Calcium 10.8 H (8.4-10.2) mg/dL Ionized Calcium Sheryl 6.4 H* (4.5-5.3) mg/dL Phosphorus 5.3 H (2.5-4.5) mg/dL Lactate Dehydrogenase (313-618) U/L Troponin I (0.000-0.034) ng/mL PTH Intact (14.0-72.0) pg/mL Crossmatch Assessment and Plan Plan: Anemia - anemia of chronic disease without any evidence of acute GI bleed and patient received blood transfusion patient present hemoglobin is around 9 Elevated d-dimer ruled out pulmonary embolism Acute kidney injury: Most probably secondary to acute tubular necrosis from myeloma proteins Non-ST elevation NE: Cardiology evaluated the patient patient is presently not on heparin because of severe anemia. Not recommending any cardiac catheter ization at this time. History of seizure disorder Cerebral palsy History of stroke with right-sided weakness Obstructive sleep apnea GERD MGUS/multiple myeloma Multiple osteolytic lesions of the bones Scattered osteoblastic lesions
[2021-01-31] MEDS ORDERED: FUROSEMIDE 10 MG/ML 4 ML VIAL IV STA (11:20)
--- NOTE | 2021-01-31 11:24 | P.NPCON ---
History of Present Illness - Reason for Consult acute renal failure - History of Present Illness Reason for consultation: Acute kidney injury History of present illness: The patient is a 60-year-old male seen in resuscitation for acute kidney injury. Patient's creatinine in 2017 was 0.8. This admission and it has been stable near 1.65. Patient has history of multiple myeloma and is being followed by oncology. Patient has mental impairment and is not a reliable historian. History is obtained mostly from the mother was present at bedside. He is currently not on any treatment for multiple myeloma. Calcium peaked at 11 this admission and was 10.8 today. He is maintained on normal saline at 75 mL an hour. Has been voiding. No hematuria or dysuria. No history of diabetes. No history of high blood pressure. No edema. Hemoglobin was 6.1 on admission for which she did receive blood transfusions. This morning hemoglobin was 9.8. No active bleeding. The mother states that he did have dark bowel movements prior to admission. I don't see any nonsteroidals his medication list. According to the mother, he takes Tylenol if needed for pain. Vital signs are stable. General: The patient appeared well nourished and normally developed. HEENT: Head exam is unremarkable. Neck is without jugular venous distension. LUNGS: Breath sounds decreased. HEART: Rate and Rhythm are regular. ABDOMEN: Abdominal exam reveals normal bowel sounds. EXTREMITITES: No edema. Past Medical History Past Medical History: CVA/TIA, GERD/Reflux, Hypertension, Osteoarthritis (OA), Pneumonia, Seizure Disorder, Skin Disorder, Sleep Apnea/CPAP/BIPAP Additional Past Medical History / Comment(s): epilepsy, constipation, cognitively impaired, headaches, bronchitis, O2 PRN nasal canula or mask, osteoporosis, sores from scratching, hypoglycemia, cerebral palsy-walks only a little-does fall per mom, wheelchair, bleeds easily, fell and fx back in 2 places 11/23, pt uses wheelchair for ambulation at home History of Any Multi-Drug Resistant Organisms: None Reported Past Surgical History: Ear Surgery, Orthopedic Surgery Additional Past Surgical History / Comment(s): ORIF rt hip has plate/screws. Past Anesthesia/Blood Transfusion Reactions: No Reported Reaction Past Psychological History: Anxiety Additional Psychological History / Comment(s): cerebral palsy, minimal speech- takes long time to pronounce words Smoking Status: Never smoker Past Alcohol Use History: None Reported Past Drug Use History: None Reported - Past Family History Father History Unknown: Yes Mother Family Medical History: Cancer, Deep Vein Thrombosis (DVT), Myocardial Infarction (SD), Pulmonary Embolus Additional Family Medical History / Comment(s): breast ovarian and uterine cancer, stroke x 4 Medications and Allergies Home Medications Medication Instructions Recorded Confirmed Type Gabapentin [Neurontin] 300 mg PO TID 07/27/15 01/30/21 History Acetaminophen Tab [Tylenol Tab] 1,000 mg PO Q6HR PRN 01/30/21 01/30/21 History Aspirin EC [Ecotrin Low Dose] 81 mg PO DAILY 01/30/21 01/30/21 History Atorvastatin [Lipitor] 40 mg PO HS 01/30/21 01/30/21 History Lacosamide [Vimpat] 200 mg PO BID 01/30/21 01/30/21 History lamoTRIgine [LaMICtal] 100 mg PO TID 01/30/21 01/30/21 History levETIRAcetam [Keppra] 1,500 mg PO BID 01/30/21 01/30/21 History Allergies Allergy/AdvReac Type Severity Reaction Status Date / Time codeine Allergy Rash/Hives Verified 01/30/21 07:30 erythromycin base Allergy Rash/Hives Verified 01/30/21 07:30 Iodinated Contrast Media Allergy Rash/Hives Verified 01/30/21 07:30 [Iodinated Contrast Media - IV Dye] Penicillins Allergy Rash/Hives Verified 01/30/21 07:30 radioactive serum Allergy Rash/Hives Uncoded 01/30/21 07:30 Physical Exam Vitals: Vital Signs Temp Pulse Pulse Resp BP BP Pulse Ox 01/31/21 08:00 96.6 F L 74 16 110/63 97 01/31/21 04:00 98.0 F 69 17 105/56 98 01/31/21 02:00 67 18 01/31/21 00:00 97.9 F 68 18 130/68 97 01/30/21 20:00 98.4 F 68 17 131/72 98 01/30/21 19:23 98.4 F 66 18 122/65 98 01/30/21 18:00 69 16 129/76 97 01/30/21 16:26 97.9 F 70 16 119/73 97 01/30/21 15:50 97.5 F L 73 16 125/72 97 01/30/21 15:18 97.9 F 75 16 118/70 97 01/30/21 14:52 97.6 F 78 16 122/71 98 01/30/21 14:44 97.6 F 76 16 122/71 97 01/30/21 14:32 97.7 F 79 16 117/76 01/30/21 14:04 97.4 F L 80 16 111/71 97 01/30/21 13:54 97.5 F L 78 16 116/70 97 01/30/21 13:00 84 16 109/66 96 01/30/21 12:00 79 113/68 97 Intake and Output 01/30/21 01/31/21 01/31/21 22:59 06:59 14:59 Intake Total 310 Output Total 500 Balance 310 -500 Intake: Blood Product 310 Rc As-1 Unit 310 [id number] Output: Urine 500 Other: Voiding Method Urinal Urinal Urinal # Voids 1 Weight 61.1 kg Results - Lab Results Most recent lab results Calcium 10.8 mg/dL (8.4-10.2) H 01/31/21 09:44 Phosphorus 5.3 mg/dL (2.5-4.5) H 01/31/21 09:44 Magnesium 1.7 mg/dL (1.6-2.3) 01/31/21 09:44 01/31/21 09:44 01/31/21 09:44 Assessment and Plan Plan: Assessment: 1. Acute kidney injury secondary to ATN secondary to hypercalcemia as well as acute blood loss anemia. ?Myeloma kidney. Creatinine stable near 1.65 this admission. Creatinine in 2017 was near 0.8. 2. Multiple myeloma. Oncology following. 3. Hyperchloremic metabolic acidosis secondary to IV fluids. 4. Hypercalcemia secondary to multiple myeloma. Not on any calcium or vitamin D supplements. PTH appropriately suppressed. TSH normal. 5. Acute blood loss anemia status post blood transfusion. GI following. Plan: Change normal saline to LR at 75 mL an hour. Add oral bicarbonate. 40 mg IV Lasix once today. Pamidronate 60 mg IV once today. Check vitamin D and IGNACIO levels. Follow-up electrophoresis studies. Avoid nephrotoxins. Repeat electrolytes in the morning. Check urinalysis and quantify proteinuria. Check renal ultrasound. Thank you for the consultation. I will continue to follow the patient with you during his hospital stay.
[2021-01-31 11:25] VITALS: BMI 26.3
[2021-01-31] MEDS ORDERED: SODIUM CHLORIDE 0.9% 250 ML with PAMIDRONATE 60 MG IV ONE ×2 (12:00)
--- NOTE | 2021-01-31 12:08 | US ---
EXAMINATION TYPE: US kidneys/renal and bladder DATE OF EXAM: 01/31/2021 COMPARISON: CT 2017. CLINICAL HISTORY: mc. Patient drinks 24 oz pop daily. EXAM MEASUREMENTS: Right Kidney: 10.4 x 5.8 x 4.5 cm Left Kidney: 10.0 x 5.9 x 5.5 cm Post Void Residual Volume: not assessed on inpatient Right Kidney: patient's cortex is nearly isoechoic to right renal sinus Left Kidney: patient's cortex is nearly isoechoic to left renal sinus Bladder: wnl Bilateral Jets seen: not seen due to patient movement There is no evidence for hydronephrosis at this point in time. No nephrolithiasis is seen. No maday s are identified. Increased cortical echogenicity bilaterally. The urinary bladder is satisfactorily distended. IMPRESSION: No hydronephrosis noted bilaterally.
--- NOTE | 2021-01-31 12:15 | P.PN ---
Subjective Progress Note Date: 01/31/21 Principal diagnosis: Anemia This is a 60-year-old white male patient with a history of cerebral palsy was brought to the emergency room by his mother for complaints of chest pain. He also has episodes of heartburn after drinking soda and eating some spicy foods. Once he had his evaluation in the ER he was noted to have a hemoglobin of 6.1. And we were consulted in regard to his anemia. The patient's mother states he was not having any abdominal pain, no rectal bleeding, melena, black tarry stools or nausea or vomiting. He's had a similar episode about 3 years ago and was seen by hematology. Mom states he had a bone marrow biopsy and said he had bone marrow cancer, however report is not available for review. Hematology was consulted and noted that he had history of multiple myeloma, however the patient's mother never continue treatment. He had a chest CTA yesterday which showed diffuse lucency /lytic lesions that may represent changes related to multiple myeloma additionally scattered osteoblastic lesions which may represent bone islands versus metastatic disease. A bone scan is ordered today. He is seen and examined lying in bed. His mother is at his bedside. He can today's seems very drowsy and is asleep. He is easily arousable. Denies any abdominal pain, he has not had any nausea, vomiting, or signs or symptoms of GI bleed. Today's hemoglobin was 9.4 this is status post 2 units of PRBC transfusion. Objective - Vital Signs Vital signs: Vital Signs Temp 98.0 F 01/31/21 04:00 Pulse 69 01/31/21 04:00 Resp 17 01/31/21 04:00 BP 105/56 01/31/21 04:00 Pulse Ox 98 01/31/21 04:00 Intake & Output 01/30/21 01/31/21 01/31/21 18:59 06:59 18:59 Intake Total 670 Output Total 500 Balance 670 -500 Weight 61.1 kg Intake: Blood Product 620 Rc As-1 Unit 310 [id number] Rc As-1 Unit 310 [id number] Other 50 Rc As-1 Unit 50 [id number] Output: Urine 500 Other: Voiding Method Urinal # Voids 1 - Exam General appearance: The patient is alert, nonverbal when asked questions, he has a history of mental disability, cerebral palsy, appears in no acute distress. HET: Head is normocephalic and atraumatic. Conjunctiva pink. Sclera anicteric. Neck: Supple without lymphadenopathy. Abdomen: Soft, nontender, nondistended with bowel sounds. No guarding or rigidity. Extremities: Normal skin color and turgor. No pedal edema Skin: No rashes, no jaundice Neurological: No focal deficits. Alert and oriented 3. - Labs CBC & Chem 7: 01/31/21 09:44 01/31/21 09:44 Labs: Abnormal Lab Results - Last 24 Hours (Table) 01/30/21 01/30/21 01/30/21 Range/Units 04:52 06:20 11:04 RBC (4.30-5.90) m/uL Hgb (13.0-17.5) gm/dL Hct (39.0-53.0) % Lymphocytes # (1.0-4.8) k/uL ESR 87 H (0-15) mm/hr Chloride (98-107) mmol/L Carbon Dioxide (22-30) mmol/L BUN (9-20) mg/dL Creatinine (0.66-1.25) mg/dL Glucose (74-99) mg/dL Calcium (8.4-10.2) mg/dL Lactate Dehydrogenase (313-618) U/L Troponin I 1.040 H* (0.000-0.034) ng/mL PTH Intact (14.0-72.0) pg/mL Crossmatch See Detail 01/30/21 01/30/21 01/30/21 Range/Units 14:00 16:55 17:38 RBC 2.96 L (4.30-5.90) m/uL Hgb 9.4 L D (13.0-17.5) gm/dL Hct 26.9 L (39.0-53.0) % Lymphocytes # 0.6 L (1.0-4.8) k/uL ESR (0-15) mm/hr Chloride (98-107) mmol/L Carbon Dioxide (22-30) mmol/L BUN (9-20) mg/dL Creatinine (0.66-1.25) mg/dL Glucose (74-99) mg/dL Calcium (8.4-10.2) mg/dL Lactate Dehydrogenase 762 H (313-618) U/L Troponin I 2.230 H* (0.000-0.034) ng/mL PTH Intact (14.0-72.0) pg/mL Crossmatch 01/30/21 01/30/21 Range/Units 17:38 17:38 RBC (4.30-5.90) m/uL Hgb (13.0-17.5) gm/dL Hct (39.0-53.0) % Lymphocytes # (1.0-4.8) k/uL ESR (0-15) mm/hr Chloride 112 H (98-107) mmol/L Carbon Dioxide 14 L (22-30) mmol/L BUN 36 H (9-20) mg/dL Creatinine 1.65 H (0.66-1.25) mg/dL Glucose 119 H (74-99) mg/dL Calcium 11.0 H (8.4-10.2) mg/dL Lactate Dehydrogenase (313-618) U/L Troponin I (0.000-0.034) ng/mL PTH Intact 10.2 L (14.0-72.0) pg/mL Crossmatch Assessment and Plan (1) Normocytic normochromic anemia Narrative/Plan: The patient was admitted to the hospital with chest pain found to have manic ane yung which was normocytic, normochromic. Last hemoglobin from 2017 was 11.9. Clinically he does not have any evidence of active ongoing bleeding. At this time etiology of anemia is unclear the possibility of GI blood loss and other bone marrow pathology needs to be considered. Current Visit: Yes Status: Acute Code(s): D64.9 - ANEMIA, UNSPECIFIED SNOMED Code(s): 09116070 (2) Chest pain Current Visit: Yes Status: Acute Code(s): R07.9 - CHEST PAIN, UNSPECIFIED SNOMED Code(s): 26737113 (3) Multiple myeloma Current Visit: Yes Status: Acute Code(s): C90.00 - MULTIPLE MYELOMA NOT HAVING ACHIEVED REMISSION SNOMED Code(s): 307603914 (4) Troponin level elevated Current Visit: Yes Status: Acute Code(s): R77.8 - OTHER SPECIFIED ABNORMALITIES OF PLASMA PROTEINS SNOMED Code(s): 235626095 (5) Weakness Current Visit: Yes Status: Acute Code(s): R53.1 - WEAKNESS SNOMED Code(s): 20814603 Plan: 1. Iron studies, vitamin B12 and serum folate ordered 2. Obtain stool for Hemoccult blood. 3. Hematology on consultation, patient with history of multiple myeloma await their recommendations 4. No prior history of EGD or colonoscopy in the past, however no plans for endoscopic evaluation at this time due to no signs of GI bleed, anemia likely related to multiple myeloma Thank you for this consultation, we will sign off at this time Dr. Davis Douglas I agree with the dictator's note, documented as a scribe by Alma Alcantara.
[2021-01-31] MEDS: SODIUM BICARBONATE TAB 650 MG TAB PO SCH ×2 (12:28→20:14)
[2021-01-31] MEDS: LACTATED RINGERS 1,000 ML IV SCH (12:29)
[2021-01-31 12:43] LABS: Immunoglobulin A 34.8 mg/dL (60.0-350.0); Immunoglobulin M <16.9 mg/dL (40.0-280.0)
[2021-01-31 14:24] LABS: Appearance,Urine Clear (Clear); Bacteria,Urine Rare /hpf; Bilirubin,Urine Negative (Negative); Blood,Urine Small (Negative); Color,Urine Colorless; Glucose,Urine (UA) Negative (Negative); Ketones,Urine Negative (Negative); Leukocyte Esterase,Urine Negative (Negative); Mucus,Urine Rare /hpf; Nitrite,Urine Negative (Negative); Protein,Urine Trace (Negative); RBC,Urine <1 /hpf (0-5); Specific Gravity,Urine 1.009 (1.001-1.035); Urobilinogen,Urine <2.0 mg/dL (<2.0); WBC,Urine <1 /hpf (0-5)
[2021-01-31 15:00] LABS: Creatinine,Urine Random 18.3 mg/dL; Protein/Creatinine Ratio,Urine 2.951
--- NOTE | 2021-01-31 15:00 | NM ---
EXAMINATION TYPE: NM bone scan whole body DATE OF EXAM: 01/31/2021 COMPARISON: CTA chest and brain from yesterday HISTORY: Suspicious bone lesions. Delayed whole-body scanning was performed following the injection of 19.6 mCi Tc 99m MDP. Images acq uired 5.5 hours post injection. Whole body images in anterior posterior projection along with additio nal spot views of the thorax abdomen and upper pelvis. FINDINGS: Increased multifocal increased radiotracer uptake throughout the ribs bilaterally correspond to mixed sclerotic and lytic lesions on recent CT with some areas of pathologic fracture noted on recent CT. Multifocal involvement in the spine is also present greatest near the thoracolumbar junction. Suspici ous areas of involvement in the extremities or pelvis not as well seen. IMPRESSION: Findings suspicious for diffuse osseous metastatic disease as detailed above. Correlate carole whitlock.
--- NOTE | 2021-01-31 15:57 | P.PN ---
Subjective This is a 60-year-old gentleman with a past medical history of cerebral palsy,seizure disorder, obstructive sleep apnea, hypertension, previous CVA, GERD, dyslipidemia. We have been following patient for complaints of chest pain and elevated troponins. Troponin trend .017-->1.04-->2.23. EKG however, did not reveal any acute changes. His echocardiogram showed normal LV function without any segmental wall motion defects. Patient's hemoglobin found to be 6.1. Also found to be in acute kidney injury with serum creatinine 1.68. Patient received 2 units of PRBCs. with improvement in hemoglobin. Patient d-dimer waselevated but CT scan is negative for pulmonary emboli. However, CT scan showed multiple osteolytic lesions and also osteoblastic lesions. The possibility of metastatic disease and also multiple myeloma were suggested. Those lesions or may also cause chest pains. Echocardiogram 01/30/21 EF greater than 55%, LA is mildly dilated, mild MR, mild TR. Ultrasound of kidneys/renal/bladderno hydronephrosis noted bilaterally 01/31/21: Patient seen and examined at bedside, no acute distress. States he feels better. Denies shortness of breath, chest pain, palpitations, lightheadedness, dizziness. Blood pressure 134/68, heart rate 68, afebrile, maintaining oxygen saturation is 97% on room air. Laboratory data reviewed, hemoglobin 9.8, WBC 4.1, platelets 231, sodium 141, potassium 4.1, serum creatinine 1.67, calcium 10.8, ionized calcium 6.4, GENERAL: no acute distress. NECK: Supple without JVD or thyromegaly. LUNGS: Breath sounds clear to auscultation bilaterally. Respiration equal and unlabored. No wheezes, rales or rhonchi. HEART: Regular rate and rhythm without murmurs, rubs or gallops. S1 and S2 heard. EXTREMITIES: Normal range of motion, no edema. No clubbing or cyanosis. Peripheral pulses intact. ASSESSMENT: Elevated troponin, could be related to abnormal renal function and also anemia and hypoxia. EKG did not reveal any acute changes. Echo did not show wall motion abnormalities. Anemia, anemia of chronic disease Chest pain, atypical History of seizure disorder Obstructive Sleep Apnea Cerebral Palsy Multiple Myeloma PLAN: At this time with patient's renal function and hemoglobin, patient is not a candidate for cardiac catheterization. We will continue with medical therapy. Aspirin and heparin have been on hold Continue statin Nephrology, following appreciate recommendations Patient started on IVF Plan for patient to undergo bone scan today Follow renal function and electrolytes Objective - Vital Signs Vital signs: Vital Signs Temp 98.1 F 01/31/21 15:31 Pulse 68 01/31/21 15:31 Resp 16 01/31/21 15:31 BP 134/68 01/31/21 15:31 Pulse Ox 97 01/31/21 15:31 Intake & Output 01/30/21 01/31/21 01/31/21 18:59 06:59 18:59 Intake Total 670 Output Total 500 500 Balance 670 -500 -500 Weight 61.1 kg 61.1 kg Intake: Blood Product 620 Rc As-1 Unit 310 [id number] Rc As-1 Unit 310 [id number] Other 50 Rc As-1 Unit 50 [id number] Output: Urine 500 500 Other: Voiding Method Urinal Urinal # Voids 1 - Labs CBC & Chem 7: 01/31/21 09:44 01/31/21 09:44 Labs: Abnormal Lab Results - Last 24 Hours (Table) 01/30/21 01/30/21 01/30/21 Range/Units 04:52 06:20 14:25 RBC (4.30-5.90) m/uL Hgb (13.0-17.5) gm/dL Hct (39.0-53.0) % RDW (11.5-15.5) % Lymphocytes # (1.0-4.8) k/uL ESR 87 H (0-15) mm/hr Haptoglobin 399.0 H (31.2-198.0) mg/dL Chloride (98-107) mmol/L Carbon Dioxide (22-30) mmol/L BUN (9-20) mg/dL Creatinine (0.66-1.25) mg/dL Glucose (74-99) mg/dL Calcium (8.4-10.2) mg/dL Ionized Calcium Sheryl (4.5-5.3) mg/dL Phosphorus (2.5-4.5) mg/dL Lactate Dehydrogenase (313-618) U/L PTH Intact (14.0-72.0) pg/mL Urine Protein (Negative) Urine Blood (Negative) Urine Bacteria (None) /hpf Urine Mucus (None) /hpf IgG (700.0-1600.0) mg/dL IgA (60.0-350.0) mg/dL IgM (40.0-280.0) mg/dL Free [place] LC, Quant 956.00 H (0.33-1.94) mg/dL Crossmatch See Detail 01/30/21 01/30/21 01/30/21 Range/Units 14:52 16:55 17:38 RBC 2.96 L (4.30-5.90) m/uL Hgb 9.4 L D (13.0-17.5) gm/dL Hct 26.9 L (39.0-53.0) % RDW (11.5-15.5) % Lymphocytes # 0.6 L (1.0-4.8) k/uL ESR (0-15) mm/hr Haptoglobin (31.2-198.0) mg/dL Chloride (98-107) mmol/L Carbon Dioxide (22-30) mmol/L BUN (9-20) mg/dL Creatinine (0.66-1.25) mg/dL Glucose (74-99) mg/dL Calcium (8.4-10.2) mg/dL Ionized Calcium Sheryl (4.5-5.3) mg/dL Phosphorus (2.5-4.5) mg/dL Lactate Dehydrogenase 762 H (313-618) U/L PTH Intact (14.0-72.0) pg/mL Urine Protein (Negative) Urine Blood (Negative) Urine Bacteria (None) /hpf Urine Mucus (None) /hpf IgG 409.0 L (700.0-1600.0) mg/dL IgA 34.8 L (60.0-350.0) mg/dL IgM <16.9 L (40.0-280.0) mg/dL Free [place] LC, Quant (0.33-1.94) mg/dL Crossmatch 01/30/21 01/30/21 01/31/21 Range/Units 17:38 17:38 09:44 RBC 3.21 L (4.30-5.90) m/uL Hgb 9.8 L (13.0-17.5) gm/dL Hct 28.9 L (39.0-53.0) % RDW 15.8 H (11.5-15.5) % Lymphocytes # 0.6 L (1.0-4.8) k/uL ESR (0-15) mm/hr Haptoglobin (31.2-198.0) mg/dL Chloride 112 H (98-107) mmol/L Carbon Dioxide 14 L (22-30) mmol/L BUN 36 H (9-20) mg/dL Creatinine 1.65 H (0.66-1.25) mg/dL Glucose 119 H (74-99) mg/dL Calcium 11.0 H (8.4-10.2) mg/dL Ionized Calcium Sheryl (4.5-5.3) mg/dL Phosphorus (2.5-4.5) mg/dL Lactate Dehydrogenase (313-618) U/L PTH Intact 10.2 L (14.0-72.0) pg/mL Urine Protein (Negative) Urine Blood (Negative) Urine Bacteria (None) /hpf Urine Mucus (None) /hpf IgG (700.0-1600.0) mg/dL IgA (60.0-350.0) mg/dL IgM (40.0-280.0) mg/dL Free [place] LC, Quant (0.33-1.94) mg/dL Crossmatch 01/31/21 01/31/21 Range/Units 09:44 13:08 RBC (4.30-5.90) m/uL Hgb (13.0-17.5) gm/dL Hct (39.0-53.0) % RDW (11.5-15.5) % Lymphocytes # (1.0-4.8) k/uL ESR (0-15) mm/hr Haptoglobin (31.2-198.0) mg/dL Chloride 113 H (98-107) mmol/L Carbon Dioxide 16 L (22-30) mmol/L BUN 38 H (9-20) mg/dL Creatinine 1.67 H (0.66-1.25) mg/dL Glucose (74-99) mg/dL Calcium 10.8 H (8.4-10.2) mg/dL Ionized Calcium Sheryl 6.4 H* (4.5-5.3) mg/dL Phosphorus 5.3 H (2.5-4.5) mg/dL Lactate Dehydrogenase (313-618) U/L PTH Intact (14.0-72.0) pg/mL Urine Protein Trace H (Negative) Urine Blood Small H (Negative) Urine Bacteria Rare H (None) /hpf Urine Mucus Rare H (None) /hpf IgG (700.0-1600.0) mg/dL IgA (60.0-350.0) mg/dL IgM (40.0-280.0) mg/dL Free [place] LC, Quant (0.33-1.94) mg/dL Crossmatch
[2021-01-31] MEDS ORDERED: Magnesium Replacement Protocol 1 EACH MISC MISCELLANE PRN (17:31)
[2021-01-31] MEDS: MAGNESIUM SULFATE-D5W PMX 1 GM in DEXTROSE/WATER 1 100ML.BAG IVPB SCH ×2 (18:30→20:14)
--- NOTE | 2021-01-31 19:05 | P.PN ---
Subjective Progress Note Date: 01/31/21 Principal diagnosis: Progre IOnized calcium 6.4, creatinine increased 1.67, nephrology following. Jeff chain over 900, ratio 65. He has clear progression of his myeloma. Objective - Vital Signs Vital signs: Vital Signs Temp 98.1 F 01/31/21 15:31 Pulse 68 01/31/21 15:31 Resp 16 01/31/21 15:31 BP 134/68 01/31/21 15:31 Pulse Ox 97 01/31/21 15:31 Intake & Output 01/30/21 01/31/21 01/31/21 18:59 06:59 18:59 Intake Total 670 475 Output Total 500 500 Balance 670 -500 -25 Weight 61.1 kg 61.1 kg Intake: Oral 475 Blood Product 620 Rc As-1 Unit 310 [id number] Rc As-1 Unit 310 [id number] Other 50 Rc As-1 Unit 50 [id number] Output: Urine 500 500 Other: Voiding Method Urinal Urinal # Voids 1 - Exam non verbal no acute distress points to chest (pain) Head NCNT Neck supple Abdomen: NDNT Ext: no edema Heart: RRR Lungs: No increase - Labs CBC & Chem 7: 01/31/21 09:44 01/31/21 09:44 Labs: Abnormal Lab Results - Last 24 Hours (Table) 01/30/21 01/30/21 01/30/21 Range/Units 14:25 14:52 17:38 RBC (4.30-5.90) m/uL Hgb (13.0-17.5) gm/dL Hct (39.0-53.0) % RDW (11.5-15.5) % Lymphocytes # (1.0-4.8) k/uL Haptoglobin 399.0 H (31.2-198.0) mg/dL Chloride (98-107) mmol/L Carbon Dioxide (22-30) mmol/L BUN (9-20) mg/dL Creatinine (0.66-1.25) mg/dL Calcium (8.4-10.2) mg/dL Ionized Calcium Sheryl (4.5-5.3) mg/dL Phosphorus (2.5-4.5) mg/dL Vitamin D 25-Hydroxy (30.0-100.0) ng/mL PTH Intact 10.2 L (14.0-72.0) pg/mL Urine Protein (Negative) Urine Blood (Negative) Urine Bacteria (None) /hpf Urine Mucus (None) /hpf IgG 409.0 L (700.0-1600.0) mg/dL IgA 34.8 L (60.0-350.0) mg/dL IgM <16.9 L (40.0-280.0) mg/dL Free [place] LC, Quant 956.00 H (0.33-1.94) mg/dL 01/31/21 01/31/21 01/31/21 Range/Units 09:44 09:44 09:44 RBC 3.21 L (4.30-5.90) m/uL Hgb 9.8 L (13.0-17.5) gm/dL Hct 28.9 L (39.0-53.0) % RDW 15.8 H (11.5-15.5) % Lymphocytes # 0.6 L (1.0-4.8) k/uL Haptoglobin (31.2-198.0) mg/dL Chloride 113 H (98-107) mmol/L Carbon Dioxide 16 L (22-30) mmol/L BUN 38 H (9-20) mg/dL Creatinine 1.67 H (0.66-1.25) mg/dL Calcium 10.8 H (8.4-10.2) mg/dL Ionized Calcium Sheryl 6.4 H* (4.5-5.3) mg/dL Phosphorus 5.3 H (2.5-4.5) mg/dL Vitamin D 25-Hydroxy 27.1 L (30.0-100.0) ng/mL PTH Intact (14.0-72.0) pg/mL Urine Protein (Negative) Urine Blood (Negative) Urine Bacteria (None) /hpf Urine Mucus (None) /hpf IgG (700.0-1600.0) mg/dL IgA (60.0-350.0) mg/dL IgM (40.0-280.0) mg/dL Free [place] LC, Quant (0.33-1.94) mg/dL 01/31/21 Range/Units 13:08 RBC (4.30-5.90) m/uL Hgb (13.0-17.5) gm/dL Hct (39.0-53.0) % RDW (11.5-15.5) % Lymphocytes # (1.0-4.8) k/uL Haptoglobin (31.2-198.0) mg/dL Chloride (98-107) mmol/L Carbon Dioxide (22-30) mmol/L BUN (9-20) mg/dL Creatinine (0.66-1.25) mg/dL Calcium (8.4-10.2) mg/dL Ionized Calcium Sheryl (4.5-5.3) mg/dL Phosphorus (2.5-4.5) mg/dL Vitamin D 25-Hydroxy (30.0-100.0) ng/mL PTH Intact (14.0-72.0) pg/mL Urine Protein Trace H (Negative) Urine Blood Small H (Negative) Urine Bacteria Rare H (None) /hpf Urine Mucus Rare H (None) /hpf IgG (700.0-1600.0) mg/dL IgA (60.0-350.0) mg/dL IgM (40.0-280.0) mg/dL Free [place] LC, Quant (0.33-1.94) mg/dL Assessment and Plan (1) Multiple myeloma Current Visit: Yes Status: Acute Code(s): C90.00 - MULTIPLE MYELOMA NOT HAVING ACHIEVED REMISSION SNOMED Code(s): 294375913 (2) Abnormal computed tomography scan Current Visit: Yes Status: Acute Code(s): R93.89 - ABNORMAL FINDINGS ON DX IMAGING OF OTH BODY STRUCTURES SNOMED Code(s): 870976455 (3) Anemia Current Visit: Yes Status: Acute Code(s): D64.9 - ANEMIA, UNSPECIFIED SNOMED Code(s): 942031714 Plan: Last seen by Dr. Chavez in 2017, there was concern at that time of his mother not adhering to medication he was prescribed. They have not followed up since and unclear if they have followed with any other onclogist for the myeloma diagnosis since this time. Multiple Myeloma: - With progression - Mother has refused to treat or follow-up for this known diagnosis since 2017 - COnsult Social WOrk Normocytic Anemia: - Transfused today - Transfuse less than 7 Hypercalcemia: - Likely secondary to progressive lytic lesions in bone - Recheck in am after IV hydration and attempt clarification if treatment has been received for myeloma since 2017 - Calcitonin and nephrology following Patients mother admits to not pursuing treatment of multiple myeloma and does not seem to understand they reason and need for treatment. She has not taken Timoteo for further evaluation or treatment in regards to Multiple myeloma diagnosis since 2017
[2021-01-31] MEDS: ACETAMINOPHEN TAB 325 MG TAB PO PRN (20:14)
[2021-01-31] MEDS: ATORVASTATIN 40 MG TAB PO SCH (20:14)
[2021-01-31] MEDS ORDERED: CALCITONIN INJ 200 UNIT/ML (MDV) VIAL SQ SCH (21:00)
[2021-02-01] MEDS: ACETAMINOPHEN TAB 325 MG TAB PO PRN ×2 (05:29→16:15)
[2021-02-01] MEDS: LACTATED RINGERS 1,000 ML IV SCH ×2 (06:56→17:53)
[2021-02-01 08:25] LABS: Total Protein 6.4 g/dL (6.3-8.2)
[2021-02-01 08:27] LABS: Calcium 10.3 mg/dL (8.4-10.2); Magnesium 2.2 mg/dL (1.6-2.3); Total Bilirubin 0.6 mg/dL (0.2-1.3)
[2021-02-01] MEDS: PANTOPRAZOLE 40 MG/10 ML VIAL IVP SCH ×2 (09:18→21:00)
[2021-02-01] MEDS: GABAPENTIN 300 MG CAP PO SCH ×3 (09:19→21:22)
[2021-02-01] MEDS: lamoTRIgine 100 MG TAB PO SCH ×3 (09:19→21:22)
[2021-02-01] MEDS: SODIUM BICARBONATE TAB 650 MG TAB PO SCH ×2 (09:19→21:00)
[2021-02-01] MEDS: METOPROLOL TARTRATE 12.5 MG TAB PO SCH (09:19)
[2021-02-01] MEDS: LACOSAMIDE 50 MG TABLET PO SCH ×2 (09:19→21:00)
--- NOTE | 2021-02-01 10:02 | P.PN ---
Subjective Mr. Harrington is a 60-year-old gentleman with history of cerebral palsy, seizure disorder, stroke/TIA, GERD, hypertension, obstructive sleep apnea brought in by his mother for complaints of chest pain. Patient cannot communicate so the history was taken from his mother who is at his bedside. His mother states that for the past 2-3 days patient has been pointing to the left side of the chest and complaining about pain. His mother thought he was having GI symptoms and gave him some gas pills that helped with his symptoms to some extent. But as he continuously pointed to the left side of his chest he mother brought him for further evaluation. She also mentions that she noted that he was having a seizure-like episode one day prior to bringing him to the hospital. She mentions that patient has history of seizures, he is on Keppra and Lamictal at home. She denied about any fevers, difficulty in breathing that she noticed at home. She states that at baseline he walks with the help of walker and can come indicate with her when he is hungry. She did not mention any change in his baseline activity. Complete review of systems could not be done, due to limitations in communication. In the ER at the time of admission, patient's vitals were temperature 97.7, heart rate 91, respiratory rate 20, blood pressure 1:30/71, saturating at 97% on room air. On reviewing his labs white count of 3.5, hemoglobin 6.1 with hematocrit 19.3, platelet count 251. PT of 9.6, INR 0.9, d-dimer 3.39. Sodium 136 compression 4, chloride 107, bicarb 17, BUN 42, creatinine 1.68. Calcium is 10.5, phosphorus 5.1, magnesium 1.5 troponin 0.175. Coronavirus negative. Patient had a CAT scan of the brain showing no acute hemorrhage. As his d-dimer was elevated, he had CT and she of the chest showing no acute pulmonary embolism but degenerative changes of the spine with diffuse severe osteoporosis. Diffuse lytic lesions related to multiple myeloma. Scattered osteoblastic lesions. EKG showing left ventricle hypertrophy with normal sinus rhythm. Echocardiogram showing ejection fraction of 55%. 01/31/2021 Patient was evaluated by cardiology for non-ST elevation myocardial infarction not recommending any cardiac catheterization because of his severe anemia and need for regular antiplatelet therapy postcard a catheterization. Patient also has acute renal failure probably from a myeloma proteins and acute tubular necrosis. Patient does have history of multiple myeloma probably noncompliant with medications. Oncology valid the patient patient is undergoing bone scan to evaluate bone lesions for multiple myeloma. Patient received blood transfusion no evidence of acute blood loss patient probably has chronic anemia from anemia of chronic disease. Patient has normocytic anemia. Patient doesn't provide much of the history. She does have several palsy and mental retardation secondary to cerebral palsy. 01/24/2021 and patient is eating breakfast doing well sitting on the chair able to provide me history today. Patient had a bone scan which showed multiple metastatic lesions from my his multiple myeloma patient remains mild hypercalcemic patient can use to be on IV fluids. Creatinine continues to be high. Patient had a low-grade fever because of which I'll obtain Covid 19 PCR along with blood cultures urine cultures chest x-ray. Constitutional: Denied any fatigue denied any fever. Cardio vascular: denied any chest pain, palpitations Gastrointestinal denied any nausea vomiting Pulmonary: Denied any shortness of breath cough Neurologic denied any new focal deficits All inpatient medications were reviewed and appropriate changes in these medications as dictated in the interval history and assessment and plan. Objective - Vital Signs Vital signs: Vital Signs Temp 99 F 02/01/21 09:00 Pulse 97 02/01/21 09:00 Resp 16 02/01/21 09:00 BP 116/68 02/01/21 09:00 Pulse Ox 98 02/01/21 09:00 Intake & Output 01/31/21 02/01/21 02/01/21 18:59 06:59 18:59 Intake Total 475 250 Output Total 500 Balance -25 250 Weight 61.1 kg Intake: Intake, IV Titration 250 Amount Lactated Ringers 1,000 ml 150 @ 75 mls/hr IV .[id number] ALTA Rx#:[id number] Magnesium Sulfate-D5w Pmx 100 1 gm In Dextrose/Water 1 100ml.bag @ 100 mls/hr IVPB Q1H ALTA Rx#: [id number] Oral 475 Output: Urine 500 Other: Voiding Method Urinal Urinal # Voids 1 - Exam GENERAL: The patient is alert , can follow simple commands not in any acute distress HEENT: Pupils are round and equally reacting to light. EOMI. No scleral icterus. Positive for pallor CARDIOVASCULAR: S1 and S2 present. No additional sounds. PULMONARY: Chest is clear to auscultation, slightly decreased at the lower lung bases. No wheezes or crackles. ABDOMEN: Soft, nontender, nondistended, normoactive bowel sounds. No palpable organomegaly. MUSCULOSKELETAL: No joint swelling or deformity. EXTREMITIES: No cyanosis, clubbing, no pedal edema. NEUROLOGICAL: Patient is able to follow simple commands. He is able to squeeze my hands with both his upper extremities. Fire Controlman strength is less in the right upper extremity compared to the left, mom mentions that he he is weak on the right side. He was able to lift both of his lower extremities. SKIN: no rash - Labs CBC & Chem 7: 01/31/21 09:44 02/01/21 07:46 Labs: Abnormal Lab Results - Last 24 Hours (Table) 01/30/21 01/30/21 01/30/21 Range/Units 14:25 14:52 17:38 RBC (4.30-5.90) m/uL Hgb (13.0-17.5) gm/dL Hct (39.0-53.0) % RDW (11.5-15.5) % Lymphocytes # (1.0-4.8) k/uL Haptoglobin 399.0 H (31.2-198.0) mg/dL Sodium (137-145) mmol/L Chloride (98-107) mmol/L Carbon Dioxide (22-30) mmol/L BUN (9-20) mg/dL Creatinine (0.66-1.25) mg/dL Glucose (74-99) mg/dL Calcium (8.4-10.2) mg/dL Ionized Calcium Sheryl (4.5-5.3) mg/dL Phosphorus (2.5-4.5) mg/dL Iron 279 H (65-175) ug/dL Vitamin D 25-Hydroxy (30.0-100.0) ng/mL Urine Protein (Negative) Urine Blood (Negative) Urine Bacteria (None) /hpf Urine Mucus (None) /hpf IgG 409.0 L (700.0-1600.0) mg/dL IgA 34.8 L (60.0-350.0) mg/dL IgM <16.9 L (40.0-280.0) mg/dL Free [place] LC, Quant 956.00 H (0.33-1.94) mg/dL 01/31/21 01/31/21 01/31/21 Range/Units 09:44 09:44 09:44 RBC 3.21 L (4.30-5.90) m/uL Hgb 9.8 L (13.0-17.5) gm/dL Hct 28.9 L (39.0-53.0) % RDW 15.8 H (11.5-15.5) % Lymphocytes # 0.6 L (1.0-4.8) k/uL Haptoglobin (31.2-198.0) mg/dL Sodium (137-145) mmol/L Chloride 113 H (98-107) mmol/L Carbon Dioxide 16 L (22-30) mmol/L BUN 38 H (9-20) mg/dL Creatinine 1.67 H (0.66-1.25) mg/dL Glucose (74-99) mg/dL Calcium 10.8 H (8.4-10.2) mg/dL Ionized Calcium Sheryl 6.4 H* (4.5-5.3) mg/dL Phosphorus 5.3 H (2.5-4.5) mg/dL Iron (65-175) ug/dL Vitamin D 25-Hydroxy 27.1 L (30.0-100.0) ng/mL Urine Protein (Negative) Urine Blood (Negative) Urine Bacteria (None) /hpf Urine Mucus (None) /hpf IgG (700.0-1600.0) mg/dL IgA (60.0-350.0) mg/dL IgM (40.0-280.0) mg/dL Free [place] LC, Quant (0.33-1.94) mg/dL 01/31/21 02/01/21 Range/Units 13:08 07:46 RBC (4.30-5.90) m/uL Hgb (13.0-17.5) gm/dL Hct (39.0-53.0) % RDW (11.5-15.5) % Lymphocytes # (1.0-4.8) k/uL Haptoglobin (31.2-198.0) mg/dL Sodium 135 L (137-145) mmol/L Chloride (98-107) mmol/L Carbon Dioxide 18 L (22-30) mmol/L BUN 46 H (9-20) mg/dL Creatinine 2.05 H (0.66-1.25) mg/dL Glucose 108 H (74-99) mg/dL Calcium 10.3 H (8.4-10.2) mg/dL Ionized Calcium Sheryl (4.5-5.3) mg/dL Phosphorus (2.5-4.5) mg/dL Iron (65-175) ug/dL Vitamin D 25-Hydroxy (30.0-100.0) ng/mL Urine Protein Trace H (Negative) Urine Blood Small H (Negative) Urine Bacteria Rare H (None) /hpf Urine Mucus Rare H (None) /hpf IgG (700.0-1600.0) mg/dL IgA (60.0-350.0) mg/dL IgM (40.0-280.0) mg/dL Free [place] LC, Quant (0.33-1.94) mg/dL Assessment and Plan Plan: Anemia - anemia of chronic disease without any evidence of acute GI bleed and patient received blood transfusion patient present hemoglobin is around 9. Elevated d-dimer ruled out pulmonary embolism Acute kidney injury: Most probably secondary to acute tubular necrosis from myeloma proteins -Hypercalcemia: Secondary to multiple myeloma patient remains on IV fluids Non-ST elevation SD: Cardiology evaluated the patient patient is presently not on heparin because of severe anemia. Not recommending any cardiac catheterization at this time. History of seizure disorder Cerebral palsy History of stroke with right-sided weakness Obstructive sleep apnea GERD MGUS/multiple myeloma Mic patient had a bone scan which is showing multiple metastatic lesions Multiple osteolytic lesions of the bones Scattered osteoblastic lesions
--- NOTE | 2021-02-01 10:22 | XR ---
EXAMINATION TYPE: XR chest 2V DATE OF EXAM: 02/01/2021 COMPARISON: 03/05/2017 HISTORY: Shortness of breath TECHNIQUE: Frontal and lateral views of the chest are obtained. FINDINGS: Scattered senescent parenchymal changes noted. Diminished lung volumes limit evaluation. Increased basilar density may reflect underlying atelectasi s or developing infiltrates. Correlate clinically. Heart size is stable. Mediastinal structures are stable and grossly unremarkable. No evidence for hilar prominence. Degenerative changes dorsal spine. IMPRESSION: 1. Diminished lung volumes limit evaluation. Increased basilar density may reflect underlying atelect asis or developing infiltrates. Correlate clinically.
[2021-02-01 10:33] LABS: Angiotensin-1 Converting Enz. 17 U/L (8-52)
--- NOTE | 2021-02-01 11:34 | P.PN ---
Subjective Patient is seen in follow-up for acute kidney injury and hypercalcemia. Renal function worse. Calcium level improving. Hemodynamically stable. Patient is not a reliable historian. Mother present at bedside. Vital signs are stable. General: The patient appeared well nourished and normally developed. HEENT: Head exam is unremarkable. Neck is without jugular venous distension. LUNGS: Breath sounds decreased. HEART: Rate and Rhythm are regular. ABDOMEN: Soft, nontender. EXTREMITITES: No edema. Objective - Vital Signs Vital signs: Vital Signs Temp 99 F 02/01/21 09:00 Pulse 97 02/01/21 09:00 Resp 16 02/01/21 09:00 BP 116/68 02/01/21 09:00 Pulse Ox 98 02/01/21 09:00 Intake & Output 01/31/21 02/01/21 02/01/21 18:59 06:59 18:59 Intake Total 475 250 Output Total 500 Balance -25 250 Weight 61.1 kg Intake: Intake, IV Titration 250 Amount Lactated Ringers 1,000 ml 150 @ 75 mls/hr IV .[id number] [facility] Rx#:[id number] Magnesium Sulfate-D5w Pmx 100 1 gm In Dextrose/Water 1 100ml.bag @ 100 mls/hr IVPB Q1H [facility] Rx#: [id number] Oral 475 Output: Urine 500 Other: Voiding Method Urinal Urinal # Voids 1 - Labs CBC & Chem 7: 01/31/21 09:44 02/01/21 07:46 Labs: Abnormal Lab Results - Last 24 Hours (Table) 01/30/21 01/30/21 01/30/21 Range/Units 14:25 14:52 17:38 Haptoglobin 399.0 H (31.2-198.0) mg/dL Sodium (137-145) mmol/L Carbon Dioxide (22-30) mmol/L BUN (9-20) mg/dL Creatinine (0.66-1.25) mg/dL Glucose (74-99) mg/dL Calcium (8.4-10.2) mg/dL Iron 279 H (65-175) ug/dL Vitamin D 25-Hydroxy (30.0-100.0) ng/mL Urine Protein (Negative) Urine Blood (Negative) Urine Bacteria (None) /hpf Urine Mucus (None) /hpf IgG 409.0 L (700.0-1600.0) mg/dL IgA 34.8 L (60.0-350.0) mg/dL IgM <16.9 L (40.0-280.0) mg/dL Free [place] LC, Quant 956.00 H (0.33-1.94) mg/dL 01/31/21 01/31/21 02/01/21 Range/Units 09:44 13:08 07:46 Haptoglobin (31.2-198.0) mg/dL Sodium 135 L (137-145) mmol/L Carbon Dioxide 18 L (22-30) mmol/L BUN 46 H (9-20) mg/dL Creatinine 2.05 H (0.66-1.25) mg/dL Glucose 108 H (74-99) mg/dL Calcium 10.3 H (8.4-10.2) mg/dL Iron (65-175) ug/dL Vitamin D 25-Hydroxy 27.1 L (30.0-100.0) ng/mL Urine Protein Trace H (Negative) Urine Blood Small H (Negative) Urine Bacteria Rare H (None) /hpf Urine Mucus Rare H (None) /hpf IgG (700.0-1600.0) mg/dL IgA (60.0-350.0) mg/dL IgM (40.0-280.0) mg/dL Free [place] LC, Quant (0.33-1.94) mg/dL Assessment and Plan Plan: Assessment: 1. Acute kidney injury secondary to ATN secondary to hypercalcemia, contrast- induced acute kidney injury as well as acute blood loss anemia. 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 Renal function worse. Creatinine 2.05 today. Creatinine in 2017 was near 0.8. Trace proteinuria on UA with UPC 2.95 suggestive of MM. No hydronephrosis noted on kidney ultrasound. 2. Multiple myeloma. Oncology following. From the records it appears that he's had multiple myeloma since 2017 but patient's mother has refused to get it treated. 3. Hyperchloremic metabolic acidosis secondary to IV fluids. Better. Maintained on oral bicarbonate. 4. Hypercalcemia secondary to multiple myeloma. Not on any calcium or vitamin D supplements. PTH appropriately suppressed. TSH normal. Vitamin D 27.1. IGNACIO normal. 5. Acute blood loss anemia status post blood transfusion. GI following. Plan: Maintain LR at 75 mL an hour. Pamidronate 60 mg IV given January 31. Avoid nephrotoxins. Repeat electrolytes in the morning. Check serologies. Discussed with the mother the importance of treating multiple myeloma as untreated myeloma will likely lead to progressive renal failure potentially requiring renal replacement therapy.
[2021-02-01 13:19] LABS: Albumin 3.55 g/dL (3.80-4.90); Gamma Globulin 0.47 g/dL (0.70-1.50)
[2021-02-01 14:25] LABS: Vitamin D, 1, 25-Dihydroxy 10 pg/mL (20 - 79)
--- NOTE | 2021-02-01 17:21 | P.PN ---
Subjective This is a 60-year-old gentleman with a past medical history of cerebral palsy,seizure disorder, obstructive sleep apnea, hypertension, previous CVA, GERD, dyslipidemia. We have been following patient for complaints of chest pain and elevated troponins. Troponin trend .017-->1.04-->2.23. EKG however, did not reveal any acute changes. His echocardiogram showed normal LV function without any segmental wall motion defects. Patient's hemoglobin found to be 6.1. Also found to be in acute kidney injury with serum creatinine 1.68. Patient received 2 units of PRBCs. with improvement in hemoglobin. Patient d-dimer waselevated but CT scan is negative for pulmonary emboli. However, CT scan showed multiple osteolytic lesions and also osteoblastic lesions. The possibility of metastatic disease and also multiple myeloma were suggested. Those lesions or may also cause chest pains. Echocardiogram 01/30/21 EF greater than 55%, LA is mildly dilated, mild MR, mild TR. Ultrasound of kidneys/renal/bladderno hydronephrosis noted bilaterally 02/01/21: Patient seen and examined at bedside, no acute distress. Patient states he breakfast with no difficulty. He underwent a bone scan yesterday which showed multiple metastatic lesions from his multiple myeloma. States he feels better. Denies shortness of breath, chest pain, palpitations, lightheadedness, dizziness. Blood pressure 132/62, heart rate 91, afebrile, maintaining oxygen saturation is 97% on room air. Laboratory data reviewed,sodium 135, potassium 4.0, serum creatinine 2.05 (1.67 yesterday), calcium 10.3, ionized calcium 6.4,covid-19 negative GENERAL: no acute distress. NECK: Supple without JVD or thyromegaly. LUNGS: Breath sounds clear to auscultation bilaterally. Respiration equal and unlabored. No wheezes, rales or rhonchi. HEART: Regular rate and rhythm without murmurs, rubs or gallops. S1 and S2 heard. EXTREMITIES: Normal range of motion, no edema. No clubbing or cyanosis. Peripheral pulses intact. ASSESSMENT: Elevated troponin, could be related to abnormal renal function and also anemia and hypoxia. However, with increased troponin 0.17, 1.04, 2.2, cannot rule out ischemia at this time. EKG did not reveal any acute changes. Echo did not show wall motion abnormalities. Acute kidney injury Anemia, anemia of chronic disease Chest pain, atypical History of seizure disorder Obstructive Sleep Apnea Cerebral Palsy Multiple Myeloma Hypercalcemia PLAN: At this time with patient's renal function and hemoglobin, patient is not a candidate for cardiac catheterization. We will continue with medical therapy. Aspirin and heparin have been on hold We will sign off at this time. Please reach out for any further questions or concerns. Patient can follow up outpatient with cardiology in the office. Objective - Vital Signs Vital signs: Vital Signs Temp 98.2 F 02/01/21 12:00 Pulse 91 02/01/21 12:00 Resp 14 02/01/21 12:00 BP 132/62 02/01/21 12:00 Pulse Ox 95 02/01/21 12:00 Intake & Output 01/31/21 02/01/21 02/01/21 18:59 06:59 18:59 Intake Total 475 250 200 Output Total 500 Balance -25 250 200 Weight 61.1 kg Intake: Intake, IV Titration 250 150 Amount Lactated Ringers 1,000 ml 150 150 @ 75 mls/hr IV .[id number] [facility] Rx#:[id number] Magnesium Sulfate-D5w Pmx 100 1 gm In Dextrose/Water 1 100ml.bag @ 100 mls/hr IVPB Q1H [facility] Rx#: [id number] Oral 475 50 Output: Urine 500 Other: Voiding Method Urinal Urinal # Voids 1 - Labs CBC & Chem 7: 01/31/21 09:44 02/01/21 07:46 Labs: Abnormal Lab Results - Last 24 Hours (Table) 01/30/21 01/30/21 01/31/21 Range/Units 14:25 17:38 09:44 Sodium (137-145) mmol/L Carbon Dioxide (22-30) mmol/L BUN (9-20) mg/dL Creatinine (0.66-1.25) mg/dL Glucose (74-99) mg/dL Calcium (8.4-10.2) mg/dL Iron 279 H (65-175) ug/dL Albumin (PEP) 3.55 L (3.80-4.90) g/dL Vvnxy-1-Pplgmwhti 1.01 H (0.60-1.00) g/dL Gamma Globulins 0.47 L (0.70-1.50) g/dL Vitamin D 25-Hydroxy 27.1 L (30.0-100.0) ng/mL Vit D 1,25-Dihydroxy (20 - 79) pg/mL 01/31/21 02/01/21 Range/Units 09:44 07:46 Sodium 135 L (137-145) mmol/L Carbon Dioxide 18 L (22-30) mmol/L BUN 46 H (9-20) mg/dL Creatinine 2.05 H (0.66-1.25) mg/dL Glucose 108 H (74-99) mg/dL Calcium 10.3 H (8.4-10.2) mg/dL Iron (65-175) ug/dL Albumin (PEP) (3.80-4.90) g/dL Ybswq-1-Ekshpkqpa (0.60-1.00) g/dL Gamma Globulins (0.70-1.50) g/dL Vitamin D 25-Hydroxy (30.0-100.0) ng/mL Vit D 1,25-Dihydroxy 10 L (20 - 79) pg/mL
--- NOTE | 2021-02-01 20:18 | P.PN ---
Subjective Progress Note Date: 02/01/21 Principal diagnosis: Progre Renal Functioning worsening, per protocol unable to give calcitonin at the levels of hypercalcemia. Patient mother expresses wanting son to be treated for myeloma, although she goes back and forth on where. We can initiate a treatment steroid dose while inpatient. Nephrology following, Objective - Vital Signs Vital signs: Vital Signs Temp 98.2 F 02/01/21 12:00 Pulse 91 02/01/21 12:00 Resp 14 02/01/21 12:00 BP 132/62 02/01/21 12:00 Pulse Ox 95 02/01/21 12:00 Intake & Output 01/31/21 02/01/21 02/01/21 18:59 06:59 18:59 Intake Total 475 250 Output Total 500 Balance -25 250 Weight 61.1 kg Intake: Intake, IV Titration 250 Amount Lactated Ringers 1,000 ml 150 @ 75 mls/hr IV .[id number] [facility] Rx#:[id number] Magnesium Sulfate-D5w Pmx 100 1 gm In Dextrose/Water 1 100ml.bag @ 100 mls/hr IVPB Q1H [facility] Rx#: [id number] Oral 475 Output: Urine 500 Other: Voiding Method Urinal Urinal # Voids 1 - Exam non verbal no acute distress points to chest (pain) Head NCNT Neck supple Abdomen: NDNT Ext: no edema Heart: RRR Lungs: No increase - Labs CBC & Chem 7: 01/31/21 09:44 02/01/21 07:46 Labs: Abnormal Lab Results - Last 24 Hours (Table) 01/30/21 01/30/21 01/31/21 Range/Units 14:25 17:38 09:44 Haptoglobin 399.0 H (31.2-198.0) mg/dL Sodium (137-145) mmol/L Carbon Dioxide (22-30) mmol/L BUN (9-20) mg/dL Creatinine (0.66-1.25) mg/dL Glucose (74-99) mg/dL Calcium (8.4-10.2) mg/dL Iron 279 H (65-175) ug/dL Vitamin D 25-Hydroxy 27.1 L (30.0-100.0) ng/mL Urine Protein (Negative) Urine Blood (Negative) Urine Bacteria (None) /hpf Urine Mucus (None) /hpf Free [place] LC, Quant 956.00 H (0.33-1.94) mg/dL 01/31/21 02/01/21 Range/Units 13:08 07:46 Haptoglobin (31.2-198.0) mg/dL Sodium 135 L (137-145) mmol/L Carbon Dioxide 18 L (22-30) mmol/L BUN 46 H (9-20) mg/dL Creatinine 2.05 H (0.66-1.25) mg/dL Glucose 108 H (74-99) mg/dL Calcium 10.3 H (8.4-10.2) mg/dL Iron (65-175) ug/dL Vitamin D 25-Hydroxy (30.0-100.0) ng/mL Urine Protein Trace H (Negative) Urine Blood Small H (Negative) Urine Bacteria Rare H (None) /hpf Urine Mucus Rare H (None) /hpf Free [place] LC, Quant (0.33-1.94) mg/dL Assessment and Plan (1) Multiple myeloma Current Visit: Yes Status: Acute Code(s): C90.00 - MULTIPLE MYELOMA NOT HAVING ACHIEVED REMISSION SNOMED Code(s): 501985672 (2) Abnormal computed tomography scan Current Visit: Yes Status: Acute Code(s): R93.89 - ABNORMAL FINDINGS ON DX IMAGING OF OTH BODY STRUCTURES SNOMED Code(s): 003775578 (3) Anemia Current Visit: Yes Status: Acute Code(s): D64.9 - ANEMIA, UNSPECIFIED SNOMED Code(s): 085544923 Plan: Last seen by Dr. Chavez in 2017, there was concern at that time of his mother not adhering to medication he was prescribed. They have not followed up since and unclear if they have followed with any other onclogist for the myeloma diagnosis since this time. Multiple Myeloma: - With progression - Mother has refused to treat or follow-up for this known diagnosis since 2017 - COnsult Social WOrk Normocytic Anemia: - Transfused today - Transfuse less than 7 Hypercalcemia: - Likely secondary to progressive lytic lesions in bone - Recheck in am after IV hydration and attempt clarification if treatment has been received for myeloma since 2017 - Calcitonin and nephrology following Patients mother admits to not pursuing treatment of multiple myeloma and does not seem to understand they reason and need for treatment. She has not taken [place] for further evaluation or treatment in regards to Multiple myeloma diagnosis since 2017 Long discussion with patients mother, who had jumping of ideas and will ultimately decide what city to treat son, we can begin a treatment dose of dexamethasone if no active infection seen.
[2021-02-01] MEDS: ATORVASTATIN 40 MG TAB PO SCH (21:00)
[2021-02-02] MEDS: PANTOPRAZOLE 40 MG/10 ML VIAL IVP SCH (07:54)
[2021-02-02] MEDS: LACTATED RINGERS 1,000 ML IV SCH ×2 (07:55→21:40)
[2021-02-02] MEDS: METOPROLOL TARTRATE 12.5 MG TAB PO SCH (08:41)
[2021-02-02] MEDS: lamoTRIgine 100 MG TAB PO SCH ×3 (08:41→21:39)
[2021-02-02] MEDS: LACOSAMIDE 50 MG TABLET PO SCH ×2 (08:42→21:39)
[2021-02-02] MEDS: GABAPENTIN 300 MG CAP PO SCH ×3 (08:42→21:39)
[2021-02-02] MEDS: SODIUM BICARBONATE TAB 650 MG TAB PO SCH ×2 (08:44→21:39)
[2021-02-02] MEDS: ACETAMINOPHEN TAB 325 MG TAB PO PRN (08:44)
[2021-02-02 09:39] LABS: HCT 27.6 % (39.0-53.0); HGB 9.6 gm/dL (13.0-17.5); MCH 31.4 pg (25.0-35.0); MCHC 34.9 g/dL (31.0-37.0); Mean Platelet Volume 7.2; Platelet Count 209 k/uL (150-450); RBC 3.07 m/uL (4.30-5.90); RDW 15.8 % (11.5-15.5)
--- NOTE | 2021-02-02 10:23 | P.PN ---
Subjective Patient is seen in follow-up for acute kidney injury and hypercalcemia. Renal function worse with creatinine at 2.05 as of yesterday. Calcium level trending down. Hemodynamically stable. Patient is not a reliable historian. Mother present at bedside. Vital signs are stable. General: The patient appeared well nourished and normally developed. HEENT: Head exam is unremarkable. Neck is without jugular venous distension. LUNGS: Breath sounds decreased. HEART: Rate and Rhythm are regular. ABDOMEN: Soft, nontender. EXTREMITITES: No edema. Objective - Vital Signs Vital signs: Vital Signs Temp 97.8 F 02/02/21 10:09 Pulse 91 02/02/21 07:24 Resp 13 02/02/21 07:24 BP 110/62 02/02/21 07:24 Pulse Ox 96 02/02/21 07:24 Intake & Output 02/01/21 02/02/21 02/02/21 18:59 06:59 18:59 Intake Total 200 500 Balance 200 500 Intake: Intake, IV Titration 150 Amount Lactated Ringers 1,000 ml 150 @ 75 mls/hr IV .[id number] [facility] Rx#:[id number] Oral 50 500 Other: Voiding Method Urinal Urinal Diaper Diaper # Voids 3 - Labs CBC & Chem 7: 02/02/21 08:57 02/01/21 07:46 Labs: Abnormal Lab Results - Last 24 Hours (Table) 01/30/21 01/31/21 02/02/21 Range/Units 14:25 09:44 08:57 WBC 3.0 L (3.8-10.6) k/uL RBC 3.07 L (4.30-5.90) m/uL Hgb 9.6 L (13.0-17.5) gm/dL Hct 27.6 L (39.0-53.0) % RDW 15.8 H (11.5-15.5) % Albumin (PEP) 3.55 L (3.80-4.90) g/dL Fojyw-3-Ezvaimvjr 1.01 H (0.60-1.00) g/dL Gamma Globulins 0.47 L (0.70-1.50) g/dL Vit D 1,25-Dihydroxy 10 L (20 - 79) pg/mL Assessment and Plan Plan: Assessment: 1. Acute kidney injury secondary to ATN secondary to hypercalcemia, contrast- induced acute kidney injury as well as acute blood loss anemia. 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 Renal function worse. Creatinine 2.05 . Cr as of yesterdayeatinine in 2017 was near 0.8. Trace proteinuria on UA with UPC 2.95 suggestive of MM. No hydronephrosis noted on kidney ultrasound. 2. Multiple myeloma. Oncology following. From the records it appears that he's had multiple myeloma since 2016 but patient's mother has refused to get it treated. 3. Hyperchloremic metabolic acidosis secondary to IV fluids. Better. Maintained on oral bicarbonate. 4. Hypercalcemia secondary to multiple myeloma. Not on any calcium or vitamin D supplements. PTH appropriately suppressed. TSH normal. Vitamin D 27.1. 1,25 D3 level 10. IGNACIO normal. 5. Acute blood loss anemia status post blood transfusion. GI following. Plan: Maintain LR at 75 mL an hour. Pamidronate 60 mg IV given January 31. Avoid nephrotoxins. Morning labs pending. Discussed with the mother the importance of treating multiple myeloma as untreated myeloma will lead to progressive renal failure potentially requiring renal replacement therapy. Case also discussed with oncology. Will be started on steroids.
[2021-02-02 10:38] LABS: African American GFR (CKD) 36 (>60 ml/min/1.73 sqM); Anion Gap 13 mmol/L; Blood Urea Nitrogen 45 mg/dL (9-20); Calcium 9.6 mg/dL (8.4-10.2); Carbon Dioxide 19 mmol/L (22-30); Chloride 106 mmol/L (98-107); Glucose 123 mg/dL (74-99); Magnesium 1.8 mg/dL (1.6-2.3); Non-African American GFR(CKD) 31 (>60 ml/min/1.73 sqM); Potassium 3.6 mmol/L (3.5-5.1); Sodium 138 mmol/L (137-145)
[2021-02-02] MEDS: ALBUTEROL NEBULIZED 2.5 MG/3 ML INHALATION SCH ×3 (12:25→21:07)
[2021-02-02] MEDS: MAGNESIUM SULFATE-D5W PMX 1 GM in DEXTROSE/WATER 1 100ML.BAG IVPB SCH ×2 (12:29→13:55)
--- NOTE | 2021-02-02 13:44 | P.PN ---
Subjective Progress Note Date: 02/02/21 Principal diagnosis: Progre Renal function continues to worsen, this is felt to be related to his large increased light chains. Will need to initiate treatment dosage of dex/PPI and attempt to obtain 24 hour urine Objective - Vital Signs Vital signs: Vital Signs Temp 99.1 F 02/02/21 13:17 Pulse 70 02/02/21 13:17 Resp 17 02/02/21 13:17 BP 113/69 02/02/21 13:17 Pulse Ox 96 02/02/21 13:17 Intake & Output 02/01/21 02/02/21 02/02/21 18:59 06:59 18:59 Intake Total 200 500 Balance 200 500 Intake: Intake, IV Titration 150 Amount Lactated Ringers 1,000 ml 150 @ 75 mls/hr IV .[id number] [facility] Rx#:[id number] Oral 50 500 Other: Voiding Method Urinal Diaper Diaper # Voids 3 - Exam non verbal no acute distress points to chest (pain) Head NCNT Neck supple Abdomen: NDNT Ext: no edema Heart: RRR Lungs: No increase - Labs CBC & Chem 7: 02/02/21 08:57 02/02/21 08:57 Labs: Abnormal Lab Results - Last 24 Hours (Table) 01/31/21 02/02/21 02/02/21 Range/Units 09:44 08:57 08:57 WBC 3.0 L (3.8-10.6) k/uL RBC 3.07 L (4.30-5.90) m/uL Hgb 9.6 L (13.0-17.5) gm/dL Hct 27.6 L (39.0-53.0) % RDW 15.8 H (11.5-15.5) % Carbon Dioxide 19 L (22-30) mmol/L BUN 45 H (9-20) mg/dL Creatinine 2.22 H (0.66-1.25) mg/dL Glucose 123 H (74-99) mg/dL Vit D 1,25-Dihydroxy 10 L (20 - 79) pg/mL Microbiology - Last 24 Hours (Table) 02/01/21 10:16 Blood Culture - Preliminary Blood No Growth after 24 hours 02/01/21 10:19 Blood Culture - Preliminary Blood No Growth after 24 hours Assessment and Plan (1) Multiple myeloma Current Visit: Yes Status: Acute Code(s): C90.00 - MULTIPLE MYELOMA NOT HAVING ACHIEVED REMISSION SNOMED Code(s): 675064729 (2) Abnormal computed tomography scan Current Visit: Yes Status: Acute Code(s): R93.89 - ABNORMAL FINDINGS ON DX IMAGING OF OTH BODY STRUCTURES SNOMED Code(s): 095408601 (3) Anemia Current Visit: Yes Status: Acute Code(s): D64.9 - ANEMIA, UNSPECIFIED SNOMED Code(s): 461173871 Plan: Last seen by Dr. Chavez in 2017, there was concern at that time of his mother not adhering to medication he was prescribed. They have not followed up since and unclear if they have followed with any other onclogist for the myeloma diagnosis since this time. Multiple Myeloma: - With progression - Mother has refused to treat or follow-up for this known diagnosis since 2017 - COnsult Social WOrk Normocytic Anemia: - Transfused today - Transfuse less than 7 Hypercalcemia: - Likely secondary to progressive lytic lesions in bone - Recheck in am after IV hydration and attempt clarification if treatment has been received for myeloma since 2017 - Calcitonin and nephrology following - Status Post 60mg [place] x1 Plan: - Dex 40mg daily x4 days with PPI - Oncologist outside hospital referral - Repeated education
--- NOTE | 2021-02-02 13:58 | P.PN ---
Subjective Progress Note Date: 02/02/21 Mr. Harrington is a 60-year-old gentleman with history of cerebral palsy, seizure disorder, stroke/TIA, GERD, hypertension, obstructive sleep apnea brought in by his mother for complaints of chest pain. Patient cannot communicate so the history was taken from his mother who is at his bedside. His mother states that for the past 2-3 days patient has been pointing to the left side of the chest and complaining about pain. His mother thought he was having GI symptoms and gave him some gas pills that helped with his symptoms to some extent. But as he continuously pointed to the left side of his chest he mother brought him for further evaluation. She also mentions that she noted that he was having a se izure-like episode one day prior to bringing him to the hospital. She mentions that patient has history of seizures, he is on Keppra and Lamictal at home. She denied about any fevers, difficulty in breathing that she noticed at home. She states that at baseline he walks with the help of walker and can come indicate with her when he is hungry. She did not mention any change in his baseline acti vity. Complete review of systems could not be done, due to limitations in communication. In the ER at the time of admission, patient's vitals were temperature 97.7, heart rate 91, respiratory rate 20, blood pressure 1:30/71, saturating at 97% on room air. On reviewing his labs white count of 3.5, hemoglobin 6.1 with hematocrit 19.3, platelet count 251. PT of 9.6, INR 0.9, d-dimer 3.39. Sodium 136 compression 4, chloride 107, bicarb 17, BUN 42, creatinine 1.68. Calcium is 10.5, phosphorus 5.1, magnesium 1.5 troponin 0.175. Coronavirus negative. Patient had a CAT scan of the brain showing no acute hemorrhage. As his d-dimer was elevated, he had CT and she of the chest showing no acute pulmonary embolism but degenerative changes of the spine with diffuse severe osteoporosis. Diffuse lytic lesions related to multiple myeloma. Scattered osteoblastic lesions. EKG showing left ventricle hypertrophy with normal sinus rhythm. Echocardiogram showing ejection fraction of 55%. 01/31/2021 Patient was evaluated by cardiology for non-ST elevation myocardial infarction not recommending any cardiac catheterization because of his severe anemia and need for regular antiplatelet therapy postcard a catheterization. Patient also has acute renal failure probably from a myeloma proteins and acute tubular necrosis. Patient does have history of multiple myeloma probably noncompliant with medications. Oncology valid the patient patient is undergoing bone scan to evaluate bone lesions for multiple myeloma. Patient received blood transfusion no evidence of acute blood loss patient probably has chronic anemia from anemia of chronic disease. Patient has normocytic anemia. Patient doesn't provide much of the history. She does have several palsy and mental retardation secondary to cerebral palsy. 02/01/2021 and patient is eating breakfast doing well sitting on the chair able to provide me history today. Patient had a bone scan which showed multiple metastatic lesions from my his multiple myeloma patient remains mild hypercalcemic patient can use to be on IV fluids. Creatinine continues to be high. Patient had a low-grade fever because of which I'll obtain Covid 19 PCR a long with blood cultures urine cultures chest x-ray. 02/02/2021 Patient is seen and evaluated and follow-up with mother at the bedside had a detailed discussion about the bone scan results and her treatment plans moving forward and she continued to state that she wants to do what's best for her son and keep her son happy and healthy and has had multiple family members in the past that of Harry radiation and chemotherapy and has not done well and patient's mother wants to be ensured that her son will improve if receiving cancer treatment. Patient will likely need referral to tertiary treatment center if she decides with this option. Oncology is following and starting the patient on high-dose steroids and will monitor closely. Nephrology also following his creatinine continues to be elevated. Creatinine slightly worsened at 2.2 to with a BUN of 45, sodium is 138, potassium is 3.6, current hemoglobin is 9.6, calcium is also 9.6 and improved, current magnesium is 1.8. Repeat Covid testing was negative and urine is negative as well. Chest x-ray from yesterday shows basilar density that may reflect underlying atelectasis or developing infiltrates. Patient also continues to have intermittent low-grade fevers but responds appropriately to Tylenol. Patient is maintained on room air with oxygen saturations of 96%. Also discussed in detail with mother Alessandra about CODE STATUS and she does not want son placed on mechanical vent or compressions and status was changed to no code. Constitutional: Denied any fatigue denied any fever. Cardio vascular: denied any chest pain, palpitations Gastrointestinal denied any nausea vomiting Pulmonary: Denied any shortness of breath cough Neurologic denied any new focal deficits Objective - Vital Signs Vital signs: Vital Signs Temp 97.8 F 02/02/21 10:09 Pulse 91 02/02/21 12:08 Resp 18 02/02/21 12:08 BP 110/62 02/02/21 07:24 Pulse Ox 96 02/02/21 07:24 Intake & Output 02/01/21 02/02/21 02/02/21 18:59 06:59 18:59 Intake Total 200 500 Balance 200 500 Intake: Intake, IV Titration 150 Amount Lactated Ringers 1,000 ml 150 @ 75 mls/hr IV .[id number] [facility] Rx#:[id number] Oral 50 500 Other: Voiding Method Urinal Diaper Diaper # Voids 3 - Exam GENERAL: The patient is alert , can follow simple commands not in any acute distress HEENT: Pupils are round and equally reacting to light. EOMI. No scleral icterus. Positive for pallor CARDIOVASCULAR: S1 and S2 present. No additional sounds. PULMONARY: Chest is clear to auscultation, slightly decreased at the lower lung bases. No wheezes or crackles. ABDOMEN: Soft, nontender, nondistended, normoactive bowel sounds. No palpable organomegaly. MUSCULOSKELETAL: No joint swelling or deformity. EXTREMITIES: No cyanosis, clubbing, no pedal edema. NEUROLOGICAL: Patient is able to follow simple commands. He is able to squeeze my hands with both his upper extremities. Senior Database Administrator strength is less in the right upper extremity compared to the left, mom mentions that he he is weak on the right side. He was able to lift both of his lower extremities. SKIN: no rash - Labs CBC & Chem 7: 02/02/21 08:57 02/02/21 08:57 Labs: Abnormal Lab Results - Last 24 Hours (Table) 01/30/21 01/31/21 02/02/21 Range/Units 14:25 09:44 08:57 WBC (3.8-10.6) k/uL RBC (4.30-5.90) m/uL Hgb (13.0-17.5) gm/dL Hct (39.0-53.0) % RDW (11.5-15.5) % Carbon Dioxide 19 L (22-30) mmol/L BUN 45 H (9-20) mg/dL Creatinine 2.22 H (0.66-1.25) mg/dL Glucose 123 H (74-99) mg/dL Albumin (PEP) 3.55 L (3.80-4.90) g/dL Xjomz-5-Nlzplmdni 1.01 H (0.60-1.00) g/dL Gamma Globulins 0.47 L (0.70-1.50) g/dL Vit D 1,25-Dihydroxy 10 L (20 - 79) pg/mL 02/02/21 Range/Units 08:57 WBC 3.0 L (3.8-10.6) k/uL RBC 3.07 L (4.30-5.90) m/uL Hgb 9.6 L (13.0-17.5) gm/dL Hct 27.6 L (39.0-53.0) % RDW 15.8 H (11.5-15.5) % Carbon Dioxide (22-30) mmol/L BUN (9-20) mg/dL Creatinine (0.66-1.25) mg/dL Glucose (74-99) mg/dL Albumin (PEP) (3.80-4.90) g/dL Pfodt-1-Bhwipgwon (0.60-1.00) g/dL Gamma Globulins (0.70-1.50) g/dL Vit D 1,25-Dihydroxy (20 - 79) pg/mL Microbiology - Last 24 Hours (Table) 02/01/21 10:16 Blood Culture - Preliminary Blood No Growth after 24 hours 02/01/21 10:19 Blood Culture - Preliminary Blood No Growth after 24 hours Assessment and Plan Assessment: Anemia - anemia of chronic disease without any evidence of acute GI bleed and patient received blood transfusion patient present hemoglobin is 9.6 Elevated d-dimer ruled out pulmonary embolism Acute kidney injury: Most probably secondary to acute tubular necrosis from myeloma proteins Hypercalcemia: Secondary to multiple myeloma patient remains on IV fluids Non-ST elevation ME: Cardiology evaluated the patient patient is presently not on heparin because of severe anemia. Not recommending any cardiac catheterization at this time. History of seizure disorder Cerebral palsy History of stroke with right-sided weakness Obstructive sleep apnea GERD MGUS/multiple myeloma patient had a bone scan which is showing multiple metastatic lesions Multiple osteolytic lesions of the bones Scattered osteoblastic lesions No code Plan: Discussed with oncology about treatment plan moving forward and mother Alessandra at the bedside continues to refuse chemotherapy and radiation treatment as she is quite concerned having previous multiple family members who have had these treatments and not do well and does not want to place her son in harm and wants him to be happy and healthy. Discussed with the mother about the bone scan. Patient is being started on high-dose steroids for the multiple myeloma and nephrology also following as patient's creatinine continues to be elevated and is currently 2.2 today. Patient also continues with intermittent low-grade fevers but has no complaints of shortness of breath, cough, or chest pains. Per mother patient is tolerating diet with no nausea or vomiting noted. Blood cultures remain negative. CODE STATUS was changed to no code as mother states she does not want her son to be on mechanical vent, intubated, or compressions performed on him. This was discussed in detail with nursing staff at the bedside. Prognosis remains guarded and poor.
[2021-02-02 14:36] LABS: Uric Acid 6.5 mg/dL (3.5-8.5)
[2021-02-02] MEDS ORDERED: dexAMETHasone 4 MG TAB PO SCH (16:00)
[2021-02-02 16:23] LABS: Hepatitis A Antibody IgM Non-Reactive (Non-Reactive); Hepatitis B Core IgM Non-Reactive (Non-Reactive); Hepatitis B Surface Antigen Non-Reactive (Non-Reactive); Hepatitis C IgG Antibody Non-Reactive (Non-Reactive)
[2021-02-02 16:29] LABS: DNA Double-Stranded NEGATIVE (NEGATIVE)
[2021-02-02] MEDS: PANTOPRAZOLE 40 MG TABLET PO SCH (16:34)
[2021-02-02] MEDS: dexAMETHasone 4 MG TAB PO SCH (18:44)
[2021-02-02] MEDS: ATORVASTATIN 40 MG TAB PO SCH (21:39)
[2021-02-03] MEDS: LACTATED RINGERS 1,000 ML IV SCH ×2 (05:30→18:13)
[2021-02-03] MEDS: ALBUTEROL NEBULIZED 2.5 MG/3 ML INHALATION SCH ×3 (07:38→19:48)
[2021-02-03] MEDS: LACOSAMIDE 50 MG TABLET PO SCH ×2 (10:20→20:18)
[2021-02-03] MEDS: PANTOPRAZOLE 40 MG TABLET PO SCH ×2 (10:21→18:10)
[2021-02-03] MEDS: METOPROLOL TARTRATE 12.5 MG TAB PO SCH (10:21)
[2021-02-03] MEDS: lamoTRIgine 100 MG TAB PO SCH ×3 (10:22→20:17)
[2021-02-03] MEDS: GABAPENTIN 300 MG CAP PO SCH ×3 (10:22→20:17)
[2021-02-03] MEDS: SODIUM BICARBONATE TAB 650 MG TAB PO SCH ×2 (10:22→20:17)
--- NOTE | 2021-02-03 11:11 | P.PN ---
Subjective Progress Note Date: 02/03/21 Principal diagnosis: Progre Day 2/4 Dexamethasone, 24 hour urine in progress, awaiting CBC and renal function to result from today. Objective - Vital Signs Vital signs: Vital Signs Temp 98.5 F 02/03/21 07:35 Pulse 70 02/03/21 07:48 Resp 17 02/03/21 09:08 BP 116/62 02/03/21 07:35 Pulse Ox 96 02/03/21 07:38 Intake & Output 02/02/21 02/03/21 02/03/21 18:59 06:59 18:59 Intake Total 1520 Balance 1520 Intake: Intake, IV Titration 900 Amount Lactated Ringers 1,000 ml 900 @ 75 mls/hr IV .[id number] [facility] Rx#:[id number] Oral 620 Other: Voiding Method Diaper Urinal Diaper # Voids 4 - Exam non verbal no acute distress points to chest (pain) Head NCNT Neck supple Abdomen: NDNT Ext: no edema Heart: RRR Lungs: No increase - Labs CBC & Chem 7: 02/02/21 08:57 02/02/21 08:57 Labs: Abnormal Lab Results - Last 24 Hours (Table) 02/01/21 02/02/21 Range/Units 07:46 08:57 Lactate Dehydrogenase 684 H (313-618) U/L Tot Complement (CH50) >98 H (42 - 95) U/mL Microbiology - Last 24 Hours (Table) 02/01/21 10:16 Blood Culture - Preliminary Blood No Growth after 24 hours 02/01/21 10:19 Blood Culture - Preliminary Blood No Growth after 24 hours Assessment and Plan (1) Multiple myeloma Current Visit: Yes Status: Acute Code(s): C90.00 - MULTIPLE MYELOMA NOT HAVING ACHIEVED REMISSION SNOMED Code(s): 420476193 (2) Abnormal computed tomography scan Current Visit: Yes Status: Acute Code(s): R93.89 - ABNORMAL FINDINGS ON DX IMAGING OF OTH BODY STRUCTURES SNOMED Code(s): 029057905 (3) Anemia Current Visit: Yes Status: Acute Code(s): D64.9 - ANEMIA, UNSPECIFIED SNOMED Code(s): 406213830 Plan: Last seen by Dr. Chavez in 2017, there was concern at that time of his mother not adhering to medication he was prescribed. They have not followed up since and unclear if they have followed with any other onclogist for the myeloma diagnosis since this time. Multiple Myeloma: - With progression - Mother has refused to treat or follow-up for this known diagnosis since 2017 - COnsult Social WOrk Normocytic Anemia: - Transfused today - Transfuse less than 7 Hypercalcemia: - Likely secondary to progressive lytic lesions in bone - Recheck in am after IV hydration and attempt clarification if treatment has been received for myeloma since 2017 - Calcitonin and nephrology following - Status Post 60mg Aredia x1 on 01/31 Plan: - Dex 40mg daily x4 days with PPI - Oncologist outside hospital referral - Repeated education - Await 24 hour urine and renal function today
[2021-02-03 11:31] LABS: Anisocytosis Slight; Basophils % (A) 0 %; Eosinophils % (A) 0 %; HCT 26.7 % (39.0-53.0); HGB 8.4 gm/dL (13.0-17.5); Lymphocytes # (A) 0.3 k/uL (1.0-4.8); Lymphocytes % (A) 15 %; MCH 29.1 pg (25.0-35.0); MCHC 31.5 g/dL (31.0-37.0); MCV 92.2 fL (80.0-100.0); Mean Platelet Volume 7.9; Monocytes % (A) 2 %; Neutrophils # (A) 1.8 k/uL (1.3-7.7); Neutrophils % (A) 82 %; Platelet Count 168 k/uL (150-450); RDW 16.1 % (11.5-15.5); WBC 2.2 k/uL (3.8-10.6)
--- NOTE | 2021-02-03 13:52 | P.PN ---
Subjective Patient is seen in follow-up for acute kidney injury and hypercalcemia. Renal function has been worsening. Creatinine 2.2 to as of yesterday. Labs from today pending. Calcium level trending down. Hemodynamically stable. Patient is not a reliable historian. Mother present at bedside. Vital signs are stable. General: The patient appeared well nourished and normally developed. HEENT: Head exam is unremarkable. Neck is without jugular venous distension. LUNGS: Breath sounds decreased. HEART: Rate and Rhythm are regular. ABDOMEN: Soft, nontender. EXTREMITITES: No edema. Objective - Vital Signs Vital signs: Vital Signs Temp 98.5 F 02/03/21 07:35 Pulse 70 02/03/21 07:48 Resp 17 02/03/21 09:08 BP 116/62 02/03/21 07:35 Pulse Ox 96 02/03/21 07:38 Intake & Output 02/02/21 02/03/21 02/03/21 18:59 06:59 18:59 Intake Total 1520 Balance 1520 Intake: Intake, IV Titration 900 Amount Lactated Ringers 1,000 ml 900 @ 75 mls/hr IV .[id number] [facility] Rx#:[id number] Oral 620 Other: Voiding Method Diaper Urinal Diaper # Voids 4 - Labs CBC & Chem 7: 02/03/21 00:55 02/02/21 08:57 Labs: Abnormal Lab Results - Last 24 Hours (Table) 02/01/21 02/02/21 02/03/21 Range/Units 07:46 08:57 00:55 WBC 2.2 L (3.8-10.6) k/uL RBC 2.90 L (4.30-5.90) m/uL Hgb 8.4 L (13.0-17.5) gm/dL Hct 26.7 L (39.0-53.0) % RDW 16.1 H (11.5-15.5) % Lymphocytes # 0.3 L (1.0-4.8) k/uL Lactate Dehydrogenase 684 H (313-618) U/L Tot Complement (CH50) >98 H (42 - 95) U/mL Microbiology - Last 24 Hours (Table) 02/01/21 10:19 Blood Culture - Preliminary Blood No Growth after 48 hours 02/01/21 10:16 Blood Culture - Preliminary Blood No Growth after 48 hours Assessment and Plan Plan: Assessment: 1. Acute kidney injury secondary to ATN secondary to hypercalcemia, contrast-induced acute kidney injury as well as acute blood loss anemia. 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 Renal function worsening. Creatinine 2.2 to as of yesterday. Creatinine in 2017 was near 0.8. Trace proteinuria on UA with UPC 2.95 suggestive of MM. No hydronephrosis noted on kidney ultrasound. 2. Multiple myeloma. Oncology following. From the records it appears that he's had multiple myeloma since 2016 but patient's mother has refused to get it treated. 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 3. Hyperchloremic metabolic acidosis secondary to IV fluids. Better. Maintained on oral bicarbonate. 4. Hypercalcemia secondary to multiple myeloma. Not on any calcium or vitamin D supplements. PTH appropriately suppressed. TSH normal. Vitamin D 27.1. 1,25 D3 level 10. IGNACIO normal. 5. Acute blood loss anemia status post blood transfusion. GI following. Plan: Maintain LR at 75 mL an hour. Pamidronate 60 mg IV given January 31. Avoid nephrotoxins. Morning labs pending. Discussed with the mother the importance of treating multiple myeloma as untreated myeloma will lead to progressive renal failure potentially requiring renal replacement therapy. Case also discussed with oncology. Started on steroids this admission.
[2021-02-03 14:08] LABS: Magnesium 2.3 mg/dL (1.5-2.4)
[2021-02-03 14:10] LABS: C-ANCA <1:20 Titer (<1:20)
[2021-02-03 14:24] LABS: African American GFR (CKD) 40.8 (60.0-200.0); Albumin 4.3 g/dL (3.80-4.90); Albumin/Globulin Ratio 2.15 (1.60-3.17); Anion Gap 14.6 mmol/L (4.00-12.00); BUN/Creat Ratio 27.5 Ratio (12.00-20.00); Carbon Dioxide 18.4 mmol/L (21.6-31.8); Non-African American GFR(CKD) 35.2 (60.0-200.0); Total Bilirubin 0.2 mg/dL (0.3-1.2); Total Protein 6.3 g/dL (6.2-8.2)
--- NOTE | 2021-02-03 15:10 | P.PN ---
Subjective Progress Note Date: 02/03/21 Mr. Harrington is a 60-year-old gentleman with history of cerebral palsy, seizure disorder, stroke/TIA, GERD, hypertension, obstructive sleep apnea brought in by his mother for complaints of chest pain. Patient cannot communicate so the history was taken from his mother who is at his bedside. His mother states that for the past 2-3 days patient has been pointing to the left side of the chest and complaining about pain. His mother thought he was having GI symptoms and gave him some gas pills that helped with his symptoms to some extent. But as he continuously pointed to the left side of his chest he mother brought him for further evaluation. She also mentions that she noted that he was having a se izure-like episode one day prior to bringing him to the hospital. She mentions that patient has history of seizures, he is on Keppra and Lamictal at home. She denied about any fevers, difficulty in breathing that she noticed at home. She states that at baseline he walks with the help of walker and can come indicate with her when he is hungry. She did not mention any change in his baseline acti vity. Complete review of systems could not be done, due to limitations in communication. In the ER at the time of admission, patient's vitals were temperature 97.7, heart rate 91, respiratory rate 20, blood pressure 1:30/71, saturating at 97% on room air. On reviewing his labs white count of 3.5, hemoglobin 6.1 with hematocrit 19.3, platelet count 251. PT of 9.6, INR 0.9, d-dimer 3.39. Sodium 136 compression 4, chloride 107, bicarb 17, BUN 42, creatinine 1.68. Calcium is 10.5, phosphorus 5.1, magnesium 1.5 troponin 0.175. Coronavirus negative. Patient had a CAT scan of the brain showing no acute hemorrhage. As his d-dimer was elevated, he had CT and she of the chest showing no acute pulmonary embolism but degenerative changes of the spine with diffuse severe osteoporosis. Diffuse lytic lesions related to multiple myeloma. Scattered osteoblastic lesions. EKG showing left ventricle hypertrophy with normal sinus rhythm. Echocardiogram showing ejection fraction of 55%. 01/31/2021 Patient was evaluated by cardiology for non-ST elevation myocardial infarction not recommending any cardiac catheterization because of his severe anemia and need for regular antiplatelet therapy postcard a catheterization. Patient also has acute renal failure probably from a myeloma proteins and acute tubular necrosis. Patient does have history of multiple myeloma probably noncompliant with medications. Oncology valid the patient patient is undergoing bone scan to evaluate bone lesions for multiple myeloma. Patient received blood transfusion no evidence of acute blood loss patient probably has chronic anemia from anemia of chronic disease. Patient has normocytic anemia. Patient doesn't provide much of the history. She does have several palsy and mental retardation secondary to cerebral palsy. 02/01/2021 and patient is eating breakfast doing well sitting on the chair able to provide me history today. Patient had a bone scan which showed multiple metastatic lesions from my his multiple myeloma patient remains mild hypercalcemic patient can use to be on IV fluids. Creatinine continues to be high. Patient had a low-grade fever because of which I'll obtain Covid 19 PCR a long with blood cultures urine cultures chest x-ray. 02/02/2021 Patient is seen and evaluated and follow-up with mother at the bedside had a detailed discussion about the bone scan results and her treatment plans moving forward and she continued to state that she wants to do what's best for her son and keep her son happy and healthy and has had multiple family members in the past that of Harry radiation and chemotherapy and has not done well and patient's mother wants to be ensured that her son will improve if receiving cancer treatment. Patient will likely need referral to tertiary treatment center if she decides with this option. Oncology is following and starting the patient on high-dose steroids and will monitor closely. Nephrology also following his creatinine continues to be elevated. Creatinine slightly worsened at 2.2 to with a BUN of 45, sodium is 138, potassium is 3.6, current hemoglobin is 9.6, calcium is also 9.6 and improved, current magnesium is 1.8. Repeat Covid testing was negative and urine is negative as well. Chest x-ray from yesterday shows basilar density that may reflect underlying atelectasis or developing infiltrates. Patient also continues to have intermittent low-grade fevers but responds appropriately to Tylenol. Patient is maintained on room air with oxygen saturations of 96%. Also discussed in detail with mother Alessandra about CODE STATUS and she does not want son placed on mechanical vent or compressions and status was changed to no code. 02/03/2021 Patient is seen in follow-up with no acute overnight issues. Nephrology and oncology following. Patient is receiving high-dose oral steroids on day 2 of 4. Sodium today is 139 with a potassium of 4.0 and creatinine is 2.0. Undergoing 24-hour urine at this time. Patient continues on sodium bicarbonate tablets and will continue. Had a lengthy discussion with mother who states she wants "to keep her baby alive" and was discussed in detail about the benefits versus risks of needing oncology treatment and she will be referred to tertiary oncology treatment center once stabilized. Constitutional: Denied any fatigue denied any fever. Cardio vascular: denied any chest pain, palpitations Gastrointestinal denied any nausea vomiting Pulmonary: Denied any shortness of breath cough Neurologic denied any new focal deficits Objective - Vital Signs Vital signs: Vital Signs Temp 98.5 F 02/03/21 07:35 Pulse 70 02/03/21 07:48 Resp 17 02/03/21 09:08 BP 116/62 02/03/21 07:35 Pulse Ox 96 02/03/21 07:38 Intake & Output 02/02/21 02/03/21 02/03/21 18:59 06:59 18:59 Intake Total 1520 Balance 1520 Intake: Intake, IV Titration 900 Amount Lactated Ringers 1,000 ml 900 @ 75 mls/hr IV .[id number] ALTA Rx#:[id number] Oral 620 Other: Voiding Method Diaper Urinal Diaper # Voids 4 - Exam GENERAL: The patient is alert , can follow simple commands not in any acute distress HEENT: Pupils are round and equally reacting to light. EOMI. No scleral icterus. Positive for pallor CARDIOVASCULAR: S1 and S2 present. No additional sounds. PULMONARY: Chest is clear to auscultation, slightly decreased at the lower lung bases. No wheezes or crackles. ABDOMEN: Soft, nontender, nondistended, normoactive bowel sounds. No palpable organomegaly. MUSCULOSKELETAL: No joint swelling or deformity. EXTREMITIES: No cyanosis, clubbing, no pedal edema. NEUROLOGICAL: Patient is able to follow simple commands. He is able to squeeze my hands with both his upper extremities. [employer] strength is less in the right upper extremity compared to the left, mom mentions that he he is weak on the right side. He was able to lift both of his lower extremities. SKIN: no rash - Labs CBC & Chem 7: 02/03/21 00:55 02/03/21 05:58 Labs: Abnormal Lab Results - Last 24 Hours (Table) 02/01/21 02/02/21 02/02/21 Range/Units 07:46 08:57 08:57 WBC (3.8-10.6) k/uL RBC (4.30-5.90) m/uL Hgb (13.0-17.5) gm/dL Hct (39.0-53.0) % RDW (11.5-15.5) % Carbon Dioxide 19 L (22-30) mmol/L BUN 45 H (9-20) mg/dL Creatinine 2.22 H (0.66-1.25) mg/dL Glucose 123 H (74-99) mg/dL Lactate Dehydrogenase 684 H (313-618) U/L Tot Complement (CH50) >98 H (42 - 95) U/mL 02/02/21 Range/Units 08:57 WBC 3.0 L (3.8-10.6) k/uL RBC 3.07 L (4.30-5.90) m/uL Hgb 9.6 L (13.0-17.5) gm/dL Hct 27.6 L (39.0-53.0) % RDW 15.8 H (11.5-15.5) % Carbon Dioxide (22-30) mmol/L BUN (9-20) mg/dL Creatinine (0.66-1.25) mg/dL Glucose (74-99) mg/dL Lactate Dehydrogenase (313-618) U/L Tot Complement (CH50) (42 - 95) U/mL Microbiology - Last 24 Hours (Table) 02/01/21 10:16 Blood Culture - Preliminary Blood No Growth after 24 hours 02/01/21 10:19 Blood Culture - Preliminary Blood No Growth after 24 hours Assessment and Plan Assessment: Anemia - anemia of chronic disease without any evidence of acute GI bleed and patient received blood transfusion patient present hemoglobin is 8.4 today Elevated d-dimer ruled out pulmonary embolism Acute kidney injury: Most probably secondary to acute tubular necrosis from myeloma proteins Hypercalcemia: Secondary to multiple myeloma, improving Non-ST elevation [place]: Cardiology evaluated the patient patient is presently not on heparin because of severe anemia. Not recommending any cardiac catheteriza tion at this time. History of seizure disorder Cerebral palsy History of stroke with right-sided weakness Obstructive sleep apnea GERD MGUS/multiple myeloma patient had a bone scan which is showing multiple metastatic lesions Multiple osteolytic lesions of the bones Scattered osteoblastic lesions No code Plan: Discussed with oncology about treatment plan moving forward and mother Alessandra at the bedside continues to refuse chemotherapy and radiation treatment as she is quite concerned having previous multiple family members who have had these treatments and not do well and does not want to place her son in harm and wants him to be happy and healthy. Had a very detailed discussion again with the mother who states "I want to keep my baby alive" and unsure if she fully and truly believes the severity of his prognosis. Risks versus benefits discussed about oncology treatment and once finished with steroids will refer to tertiary oncology treatment center in oncology is on board. Creatinine slightly improving and nephrology is following. Patient continued on sodium bicarb tablets and will continue. Prognosis remains guarded and poor.
[2021-02-03] MEDS: dexAMETHasone 4 MG TAB PO SCH (18:09)
[2021-02-03] MEDS: ATORVASTATIN 40 MG TAB PO SCH (20:17)
[2021-02-04 05:06] LABS: Total Volume 24 Hour,Urine 1625 mL
[2021-02-04 05:36] LABS: Basophils % (A) 0 %; Eosinophils % (A) 0 %; HCT 24.4 % (39.0-53.0); HGB 8.1 gm/dL (13.0-17.5); Lymphocytes # (A) 0.3 k/uL (1.0-4.8); Lymphocytes % (A) 8 %; MCH 30.1 pg (25.0-35.0); MCHC 33.3 g/dL (31.0-37.0); MCV 90.6 fL (80.0-100.0); Mean Platelet Volume 7.5; Monocytes # (A) 0.1 k/uL (0-1.0); Monocytes % (A) 3 %; Neutrophils # (A) 3.6 k/uL (1.3-7.7); Neutrophils % (A) 89 %; Platelet Count 183 k/uL (150-450); RBC 2.69 m/uL (4.30-5.90); RDW 15.9 % (11.5-15.5); WBC 4.1 k/uL (3.8-10.6)
[2021-02-04] MEDS: ALBUTEROL NEBULIZED 2.5 MG/3 ML INHALATION SCH ×3 (07:25→19:43)
[2021-02-04] MEDS: PANTOPRAZOLE 40 MG TABLET PO SCH ×2 (08:21→16:08)
[2021-02-04] MEDS: GABAPENTIN 300 MG CAP PO SCH ×3 (08:22→21:13)
[2021-02-04] MEDS: lamoTRIgine 100 MG TAB PO SCH ×3 (08:23→21:13)
[2021-02-04] MEDS: METOPROLOL TARTRATE 12.5 MG TAB PO SCH (08:23)
[2021-02-04] MEDS: LACOSAMIDE 50 MG TABLET PO SCH ×2 (08:23→21:13)
[2021-02-04] MEDS: SODIUM BICARBONATE TAB 650 MG TAB PO SCH ×2 (08:24→21:13)
[2021-02-04 10:25] LABS: African American GFR (CKD) 53.5 (60.0-200.0); Albumin 4.1 g/dL (3.80-4.90); Albumin/Globulin Ratio 2.73 (1.60-3.17); Anion Gap 15.2 mmol/L (4.00-12.00); Calcium 7.5 mg/dL (8.7-10.3); Carbon Dioxide 19.8 mmol/L (21.6-31.8); Globulin 1.5 g/dL (1.6-3.3); Magnesium 1.8 mg/dL (1.5-2.4); Non-African American GFR(CKD) 46.1 (60.0-200.0); Potassium 4.2 mmol/L (3.5-5.5); Total Bilirubin 0.1 mg/dL (0.2-1.2); Total Protein 5.6 g/dL (6.2-8.2)
[2021-02-04] MEDS: LACTATED RINGERS 1,000 ML IV SCH ×2 (12:40→21:13)
--- NOTE | 2021-02-04 14:28 | P.PN ---
Subjective Progress Note Date: 02/04/21 Follow-up for acute kidney injury. Objective - Vital Signs Vital signs: Vital Signs Temp 97.5 F L 02/04/21 05:00 Pulse 64 02/04/21 11:39 Resp 18 02/04/21 08:30 BP 100/58 02/04/21 05:00 Pulse Ox 97 02/04/21 05:00 Intake & Output 02/03/21 02/04/21 02/04/21 18:59 06:59 18:59 Intake Total 1480 Balance 1480 Weight 61.1 kg Intake: Intake, IV Titration 900 Amount Lactated Ringers 1,000 ml 900 @ 75 mls/hr IV .[id number] ALTA Rx#:[id number] Oral 580 Other: Voiding Method Urinal Urinal Diaper Diaper # Voids 3 4 - Exam Lying comfortable in bed No acute distress Sleeping so could not examine Family at bedside - Labs CBC & Chem 7: 02/04/21 04:59 02/04/21 04:59 Labs: Abnormal Lab Results - Last 24 Hours (Table) 02/03/21 02/04/21 02/04/21 Range/Units 05:58 04:59 04:59 RBC 2.69 L (4.30-5.90) m/uL Hgb 8.1 L (13.0-17.5) gm/dL Hct 24.4 L (39.0-53.0) % RDW 15.9 H (11.5-15.5) % Lymphocytes # 0.3 L (1.0-4.8) k/uL Carbon Dioxide 18.4 L 19.8 L (21.6-31.8) mmol/L Anion Gap 14.60 H 15.20 H (4.00-12.00) mmol/L BUN 55.0 H 48.0 H (9.0-27.0) mg/dL Creatinine 2.0 H 1.6 H (0.6-1.5) mg/dL Est GFR (CKD-EPI)AfAm 40.8 L 53.5 L (60.0-200.0) Est GFR (CKD-EPI)NonAf 35.2 L 46.1 L (60.0-200.0) BUN/Creatinine Ratio 27.50 H 30.00 H (12.00-20.00) Ratio Glucose 162 H 147 H (70-110) mg/dL Calcium 8.0 L 7.5 L (8.7-10.3) mg/dL Total Bilirubin 0.2 L 0.1 L (0.3-1.2) mg/dL AST 88 H 92 H (14-35) U/L Total Protein 5.6 L (6.2-8.2) g/dL Globulin 1.5 L (1.6-3.3) g/dL Microbiology - Last 24 Hours (Table) 02/01/21 10:16 Blood Culture - Preliminary Blood No Growth after 72 hours 02/01/21 10:19 Blood Culture - Preliminary Blood No Growth after 72 hours Assessment and Plan Assessment: #1 acute kidney injury secondary to prerenal process from hypercalcemia #2 suspect chronic kidney disease, baseline unknown with a recent creatinine of 0.8 in 2017. #3 myeloma cast nephropathy with IgG [place] #4 hypercalcemia secondary to multiple myeloma status post pamidronate #5 acute blood loss anemia status post transfusion Plan: #1 continue with a lot of 75 ML's an hour. Renal function and calcium improving. #2 avoid nephrotoxic agents and hypotensive episodes. #3 oncology following
[2021-02-04] MEDS: dexAMETHasone 4 MG TAB PO SCH (16:09)
[2021-02-04] MEDS: ATORVASTATIN 40 MG TAB PO SCH (21:13)
[2021-02-05] MEDS: ALBUTEROL NEBULIZED 2.5 MG/3 ML INHALATION SCH ×3 (07:01→19:51)
[2021-02-05] MEDS: LACOSAMIDE 50 MG TABLET PO SCH ×2 (09:14→21:34)
[2021-02-05] MEDS: METOPROLOL TARTRATE 12.5 MG TAB PO SCH (09:15)
[2021-02-05] MEDS: GABAPENTIN 300 MG CAP PO SCH ×3 (09:15→21:36)
[2021-02-05] MEDS: PANTOPRAZOLE 40 MG TABLET PO SCH ×2 (09:15→16:22)
[2021-02-05] MEDS: lamoTRIgine 100 MG TAB PO SCH ×3 (09:15→21:35)
[2021-02-05] MEDS: SODIUM BICARBONATE TAB 650 MG TAB PO SCH ×2 (09:15→21:35)
[2021-02-05] MEDS: LACTATED RINGERS 1,000 ML IV SCH ×2 (10:09→21:36)
--- NOTE | 2021-02-05 11:56 | P.PN ---
Subjective Progress Note Date: 02/04/21 Principal diagnosis: Anemia - anemia of chronic disease without any evidence of acute GI bleed and patient received blood transfusion Elevated d-dimer ruled out pulmonary embolism Acute kidney injury Hypercalcemia: Secondary to multiple myeloma Non-ST elevation [place] 60-year-old gentleman with history of cerebral palsy, seizure disorder, stroke/TIA, GERD, hypertension, obstructive sleep apnea brought in by his mother for complaints of chest pain. Patient cannot communicate so the history was taken from his mother who is at his bedside. His mother states that for the past 2-3 days patient has been pointing to the left side of the chest and complaining about pain. His mother thought he was having GI symptoms and gave him some gas pills that helped with his symptoms to some extent. But as he continuously pointed to the left side of his chest he mother brought him for f urther evaluation. She also mentions that she noted that he was having a seizure-like episode one day prior to bringing him to the hospital. She mentions that patient has history of seizures, he is on Keppra and Lamictal at home. She denied about any fevers, difficulty in breathing that she noticed at home. She states that at baseline he walks with the help of walker and can come indicate with her when he is hungry. She did not mention any change in his baseline activity. Complete review of systems could not be done, due to limitations in communication. 02/04/2021 Patient is seen and evaluated sitting up in a bedside recliner with parent's at bedside; patient's mother has multiple questions and is concerned about patient's seizure medications being continued and requesting medication for acid reflux Vital signs are stable with a temperature of 98.3, pulse 72, respiration 20 and blood pressure of 133/73 Medications are reviewed and patient has been resumed on home antiseizure therapy; has been started on Protonix 40 mg twice a day for acid reflux Patient remains on high dose steroid therapy in form of dexamethasone 40 mg daily with plan to complete 4 days of treatment today being day #3/4 Creatinine has trended down from 2.0 yesterday down to 1.6; nephrology on board and recommending to continue with IV fluid hydration Objective - Vital Signs Vital signs: Vital Signs Temp 97.5 F L 02/04/21 05:00 Pulse 64 02/04/21 11:39 Resp 18 02/04/21 08:30 BP 100/58 02/04/21 05:00 Pulse Ox 97 02/04/21 05:00 Intake & Output 02/03/21 02/04/21 02/04/21 18:59 06:59 18:59 Intake Total 1480 Balance 1480 Weight 61.1 kg Intake: Intake, IV Titration 900 Amount Lactated Ringers 1,000 ml 900 @ 75 mls/hr IV .[id number] ALTA Rx#:[id number] Oral 580 Other: Voiding Method Urinal Urinal Diaper Diaper # Voids 3 4 - Exam GENERAL: The patient is alert , can follow simple commands not in any acute distress HEENT: Pupils are round and equally reacting to light. EOMI. No scleral icterus. Positive for pallor CARDIOVASCULAR: S1 and S2 present. No additional sounds. PULMONARY: Chest is clear to auscultation, slightly decreased at the lower lung bases. No wheezes or crackles. ABDOMEN: Soft, nontender, nondistended, normoactive bowel sounds. No palpable organomegaly. MUSCULOSKELETAL: No joint swelling or deformity. EXTREMITIES: No cyanosis, clubbing, no pedal edema. NEUROLOGICAL: Patient is able to follow simple commands. He is able to squeeze my hands with both his upper extremities. Lmsw strength is less in the right upper extremity compared to the left, mom mentions that he he is weak on the right side. He was able to lift both of his lower extremities. SKIN: no rash - Labs CBC & Chem 7: 02/04/21 04:59 02/04/21 04:59 Labs: Abnormal Lab Results - Last 24 Hours (Table) 02/03/21 02/04/21 02/04/21 Range/Units 05:58 04:59 04:59 RBC 2.69 L (4.30-5.90) m/uL Hgb 8.1 L (13.0-17.5) gm/dL Hct 24.4 L (39.0-53.0) % RDW 15.9 H (11.5-15.5) % Lymphocytes # 0.3 L (1.0-4.8) k/uL Carbon Dioxide 18.4 L 19.8 L (21.6-31.8) mmol/L Anion Gap 14.60 H 15.20 H (4.00-12.00) mmol/L BUN 55.0 H 48.0 H (9.0-27.0) mg/dL Creatinine 2.0 H 1.6 H (0.6-1.5) mg/dL Est GFR (CKD-EPI)AfAm 40.8 L 53.5 L (60.0-200.0) Est GFR (CKD-EPI)NonAf 35.2 L 46.1 L (60.0-200.0) BUN/Creatinine Ratio 27.50 H 30.00 H (12.00-20.00) Ratio Glucose 162 H 147 H (70-110) mg/dL Calcium 8.0 L 7.5 L (8.7-10.3) mg/dL Total Bilirubin 0.2 L 0.1 L (0.3-1.2) mg/dL AST 88 H 92 H (14-35) U/L Total Protein 5.6 L (6.2-8.2) g/dL Globulin 1.5 L (1.6-3.3) g/dL Microbiology - Last 24 Hours (Table) 02/01/21 10:16 Blood Culture - Preliminary Blood No Growth after 72 hours 02/01/21 10:19 Blood Culture - Preliminary Blood No Growth after 72 hours Assessment and Plan Assessment: Anemia - anemia of chronic disease without any evidence of acute GI bleed and patient received blood transfusion patient present hemoglobin is 8.4 today Elevated d-dimer ruled out pulmonary embolism Acute kidney injury: Most probably secondary to acute tubular necrosis from myeloma proteins Hypercalcemia: Secondary to multiple myeloma, improving Non-ST elevation [place]: Cardiology evaluated the patient patient is presently not on heparin because of severe anemia. Not recommending any cardiac catheterization at this time. History of seizure disorder Cerebral palsy History of stroke with right-sided weakness Obstructive sleep apnea GERD MGUS/multiple myeloma patient had a bone scan which is showing multiple metastatic lesions Multiple osteolytic lesions of the bones Scattered osteoblastic lesions No code Plan: Discussed with oncology about treatment plan moving forward and mother Alessandra at the bedside continues to refuse chemotherapy and radiation treatment as she is quite concerned having previous multiple family members who have had these treatments and not do well and does not want to place her son in harm and wants him to be happy and healthy. Had a very detailed discussion again with the mother who states "I want to keep my baby alive" and unsure if she fully and truly believes the severity of his prognosis. Risks versus benefits discussed about oncology treatment and once finished with steroids will refer to tertiary oncology treatment center in oncology is on board. Creatinine slightly improving and nephrology is following. Patient continued on sodium bicarb tablets and will continue. Prognosis remains guarded and poor.
--- NOTE | 2021-02-05 15:14 | P.PN ---
Subjective Progress Note Date: 02/05/21 Follow-up for acute kidney injury. Objective - Vital Signs Vital signs: Vital Signs Temp 98.3 F 02/04/21 19:30 Pulse 70 02/05/21 12:17 Resp 20 02/05/21 08:00 BP 162/79 02/05/21 12:17 Pulse Ox 97 02/05/21 12:17 Intake & Output 02/04/21 02/05/21 02/05/21 18:59 06:59 18:59 Intake Total 1240 Output Total 2 Balance 1240 -2 Intake: Intake, IV Titration 900 Amount Lactated Ringers 1,000 ml 900 @ 75 mls/hr IV .[id number] ALTA Rx#:[id number] Oral 340 Output: Urine 2 Other: Voiding Method Urinal Urinal Urinal Diaper Diaper Diaper # Voids 2 - Exam Lying comfortable in bed No acute distress Family at bedside. - Labs CBC & Chem 7: 02/04/21 04:59 02/04/21 04:59 Labs: Microbiology - Last 24 Hours (Table) 02/01/21 10:16 Blood Culture - Preliminary Blood No Growth after 96 hours 02/01/21 10:19 Blood Culture - Preliminary Blood No Growth after 96 hours Assessment and Plan Assessment: #1 acute kidney injury secondary to prerenal process from hypercalcemia #2 suspect chronic kidney disease, baseline unknown with a recent creatinine of 0.8 in 2017. #3 myeloma cast nephropathy with IgG [place] #4 hypercalcemia secondary to multiple myeloma status post pamidronate #5 acute blood loss anemia status post transfusion Plan: #1 continue with LR at 75 ML's an hour. Renal function and calcium improving. No new labs today. #2 avoid nephrotoxic agents and hypotensive episodes. #3 oncology following #4 labs in the morning
[2021-02-05] MEDS: dexAMETHasone 4 MG TAB PO SCH (16:32)
[2021-02-05] MEDS: ATORVASTATIN 40 MG TAB PO SCH (21:34)
[2021-02-05] MEDS: polyethylene glycoL 3350 17 GM POWD.PACK PO SCH (21:36)
[2021-02-05] MEDS: ACETAMINOPHEN TAB 325 MG TAB PO PRN (23:06)
--- NOTE | 2021-02-06 02:55 | P.PN ---
Subjective Progress Note Date: 02/05/21 Principal diagnosis: Anemia - anemia of chronic disease without any evidence of acute GI bleed and patient received blood transfusion Elevated d-dimer ruled out pulmonary embolism Acute kidney injury Hypercalcemia: Secondary to multiple myeloma Non-ST elevation [place] 60-year-old gentleman with history of cerebral palsy, seizure disorder, stroke/TIA, GERD, hypertension, obstructive sleep apnea brought in by his mother for complaints of chest pain. Patient cannot communicate so the history was taken from his mother who is at his bedside. His mother states that for the past 2-3 days patient has been pointing to the left side of the chest and complaining about pain. His mother thought he was having GI symptoms and gave him some gas pills that helped with his symptoms to some extent. But as he continuously pointed to the left side of his chest he mother brought him for f urther evaluation. She also mentions that she noted that he was having a seizure-like episode one day prior to bringing him to the hospital. She mentions that patient has history of seizures, he is on Keppra and Lamictal at home. She denied about any fevers, difficulty in breathing that she noticed at home. She states that at baseline he walks with the help of walker and can come indicate with her when he is hungry. She did not mention any change in his baseline activity. Complete review of systems could not be done, due to limitations in communication. 02/04/2021 Patient is seen and evaluated sitting up in a bedside recliner with parent's at bedside; patient's mother has multiple questions and is concerned about patient's seizure medications being continued and requesting medication for acid reflux Vital signs are stable with a temperature of 98.3, pulse 72, respiration 20 and blood pressure of 133/73 Medications are reviewed and patient has been resumed on home antiseizure therapy; has been started on Protonix 40 mg twice a day for acid reflux Patient remains on high dose steroid therapy in form of dexamethasone 40 mg daily with plan to complete 4 days of treatment today being day #3/4 Creatinine has trended down from 2.0 yesterday down to 1.6; nephrology on board and recommending to continue with IV fluid hydration 02/05/2021; Patient is seen and evaluated resting comfortably in bed; family not present at bedside; vital signs are reviewed and stable Nephrology is following; patient remains on LR at 75 ML's an hour. Renal function and calcium improving. No new labs today; continue to avoid nephrotoxic agents and hypotensive episodes. recommend Palliative care consult to clarify goals of care Objective - Vital Signs Vital signs: Vital Signs Temp 98.3 F 02/04/21 19:30 Pulse 72 02/05/21 11:27 Resp 20 02/05/21 08:00 BP 133/73 02/04/21 19:30 Pulse Ox 97 02/04/21 19:30 Intake & Output 02/04/21 02/05/21 02/05/21 18:59 06:59 18:59 Intake Total 1240 Output Total 2 Balance 1240 -2 Intake: Intake, IV Titration 900 Amount Lactated Ringers 1,000 ml 900 @ 75 mls/hr IV .[id number] ALTA Rx#:[id number] Oral 340 Output: Urine 2 Other: Voiding Method Urinal Urinal Urinal Diaper Diaper Diaper # Voids 2 - Exam GENERAL: The patient is alert , can follow simple commands not in any acute distress HEENT: Pupils are round and equally reacting to light. EOMI. No scleral icterus. Positive for pallor CARDIOVASCULAR: S1 and S2 present. No additional sounds. PULMONARY: Chest is clear to auscultation, slightly decreased at the lower lung bases. No wheezes or crackles. ABDOMEN: Soft, nontender, nondistended, normoactive bowel sounds. No palpable organomegaly. MUSCULOSKELETAL: No joint swelling or deformity. EXTREMITIES: No cyanosis, clubbing, no pedal edema. NEUROLOGICAL: Patient is able to follow simple commands. He is able to squeeze my hands with both his upper extremities. 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 He was able to lift both of his lower extremities. SKIN: no rash - Labs CBC & Chem 7: 02/04/21 04:59 02/04/21 04:59 Labs: Microbiology - Last 24 Hours (Table) 02/01/21 10:16 Blood Culture - Preliminary Blood No Growth after 72 hours 02/01/21 10:19 Blood Culture - Preliminary Blood No Growth after 72 hours Assessment and Plan Assessment: Anemia - anemia of chronic disease without any evidence of acute GI bleed and patient received blood transfusion patient present hemoglobin is 8.4 today Elevated d-dimer ruled out pulmonary embolism Acute kidney injury: Most probably secondary to acute tubular necrosis from myeloma proteins Hypercalcemia: Secondary to multiple myeloma, improving Non-ST elevation [place]: Cardiology evaluated the patient patient is presently not on heparin because of severe anemia. Not recommending any cardiac catheterization at this time. History of seizure disorder Cerebral palsy History of stroke with right-sided weakness Obstructive sleep apnea GERD MGUS/multiple myeloma patient had a bone scan which is showing multiple metastatic lesions Multiple osteolytic lesions of the bones Scattered osteoblastic lesions No code Plan: Discussed with oncology about treatment plan moving forward and mother Alessandra at the bedside continues to refuse chemotherapy and radiation treatment as she is quite concerned having previous multiple family members who have had these treatments and not do well and does not want to place her son in harm and wants him to be happy and healthy. Had a very detailed discussion again with the mother who states "I want to keep my baby alive" and unsure if she fully and truly believes the severity of his prognosis. Risks versus benefits discussed about oncology treatment and once finished with steroids will refer to tertiary oncology treatment center in oncology is on board. Creatinine slightly improving and nephrology is following. Patient continued on sodium bicarb tablets and will continue. Prognosis remains guarded and poor.
[2021-02-06] MEDS: ALBUTEROL NEBULIZED 2.5 MG/3 ML INHALATION SCH ×3 (08:02→19:39)
[2021-02-06 09:25] LABS: African American GFR (CKD) 53.5 (60.0-200.0); Anion Gap 13.4 mmol/L (4.00-12.00); Calcium 7.2 mg/dL (8.7-10.3); Carbon Dioxide 21.6 mmol/L (21.6-31.8); Non-African American GFR(CKD) 46.1 (60.0-200.0); Potassium 4.6 mmol/L (3.5-5.5)
[2021-02-06] MEDS: LACOSAMIDE 50 MG TABLET PO SCH ×2 (10:01→20:52)
[2021-02-06] MEDS: METOPROLOL TARTRATE 12.5 MG TAB PO SCH (10:01)
[2021-02-06] MEDS: GABAPENTIN 300 MG CAP PO SCH ×3 (10:01→20:51)
[2021-02-06] MEDS: LACTATED RINGERS 1,000 ML IV SCH ×2 (10:01→20:52)
[2021-02-06] MEDS: lamoTRIgine 100 MG TAB PO SCH ×3 (10:02→20:51)
[2021-02-06] MEDS: PANTOPRAZOLE 40 MG TABLET PO SCH ×2 (10:02→16:47)
[2021-02-06] MEDS: SODIUM BICARBONATE TAB 650 MG TAB PO SCH ×2 (10:02→20:51)
--- NOTE | 2021-02-06 14:28 | PN ---
PROGRESS NOTE Patient is seen for followup for acute kidney injury. Renal function currently improved, staying stable mostly at about 1.6 mg/dL for creatinine over the last couple of days. Patient's family member is present at bedside. PHYSICAL EXAMINATION: On examination today, blood pressure was 123/73. Patient is afebrile. EXAMINATION OF THE HEART: S1, S2. EXAMINATION OF THE LUNGS: Bilateral breath sounds are heard. Abdomen is soft, nontender. Examination of lower extremities shows no evidence of edema. Patient has wasting and muscle atrophy in lower extremities. LABS: Labs show sodium 143, potassium 4.6, chloride 108, BUN 40, creatinine 1.6. ASSESSMENT: 1. Acute kidney injury associated with hypercalcemia and a prerenal component, currently somewhat improved. 2. Chronic kidney disease, possible chronic kidney disease where we have a creatinine of 0.8 in 2017 but no other labs in between. 3. Myeloma cast nephropathy with IgG kappa. 4. Hypercalcemia secondary to multiple myeloma, status post pamidronate. 5. Acute blood loss anemia, status post packed RBCs transfusion. PLAN: Continue with Ringer lactate. Repeat labs in a.m. Avoid nephrotoxic agents. Continue with oral sodium bicarb. MMODL / IJN: [id number] /
[2021-02-06 15:48] LABS: Glucose,Whole Blood 124 mg/dL (75-99)
--- NOTE | 2021-02-06 16:15 | P.PN ---
Subjective Progress Note Date: 02/06/21 Mr. Harrington is a 60-year-old gentleman with history of cerebral palsy, seizure disorder, stroke/TIA, GERD, hypertension, obstructive sleep apnea brought in by his mother for complaints of chest pain. Patient cannot communicate so the history was taken from his mother who is at his bedside. His mother states that for the past 2-3 days patient has been pointing to the left side of the chest and complaining about pain. His mother thought he was having GI symptoms and gave him some gas pills that helped with his symptoms to some extent. But as he continuously pointed to the left side of his chest he mother brought him for further evaluation. She also mentions that she noted that he was having a se izure-like episode one day prior to bringing him to the hospital. She mentions that patient has history of seizures, he is on Keppra and Lamictal at home. She denied about any fevers, difficulty in breathing that she noticed at home. She states that at baseline he walks with the help of walker and can come indicate with her when he is hungry. She did not mention any change in his baseline acti vity. Complete review of systems could not be done, due to limitations in communication. In the ER at the time of admission, patient's vitals were temperature 97.7, heart rate 91, respiratory rate 20, blood pressure 1:30/71, saturating at 97% on room air. On reviewing his labs white count of 3.5, hemoglobin 6.1 with hematocrit 19.3, platelet count 251. PT of 9.6, INR 0.9, d-dimer 3.39. Sodium 136 compression 4, chloride 107, bicarb 17, BUN 42, creatinine 1.68. Calcium is 10.5, phosphorus 5.1, magnesium 1.5 troponin 0.175. Coronavirus negative. Patient had a CAT scan of the brain showing no acute hemorrhage. As his d-dimer was elevated, he had CT and she of the chest showing no acute pulmonary embolism but degenerative changes of the spine with diffuse severe osteoporosis. Diffuse lytic lesions related to multiple myeloma. Scattered osteoblastic lesions. EKG showing left ventricle hypertrophy with normal sinus rhythm. Echocardiogram showing ejection fraction of 55%. 01/31/2021 Patient was evaluated by cardiology for non-ST elevation myocardial infarction not recommending any cardiac catheterization because of his severe anemia and need for regular antiplatelet therapy postcard a catheterization. Patient also has acute renal failure probably from a myeloma proteins and acute tubular necrosis. Patient does have history of multiple myeloma probably noncompliant with medications. Oncology valid the patient patient is undergoing bone scan to evaluate bone lesions for multiple myeloma. Patient received blood transfusion no evidence of acute blood loss patient probably has chronic anemia from anemia of chronic disease. Patient has normocytic anemia. Patient doesn't provide much of the history. She does have several palsy and mental retardation secondary to cerebral palsy. 02/01/2021 and patient is eating breakfast doing well sitting on the chair able to provide me history today. Patient had a bone scan which showed multiple metastatic lesions from my his multiple myeloma patient remains mild hypercalcemic patient can use to be on IV fluids. Creatinine continues to be high. Patient had a low-grade fever because of which I'll obtain Covid 19 PCR a long with blood cultures urine cultures chest x-ray. 02/02/2021 Patient is seen and evaluated and follow-up with mother at the bedside had a detailed discussion about the bone scan results and her treatment plans moving forward and she continued to state that she wants to do what's best for her son and keep her son happy and healthy and has had multiple family members in the past that of Harry radiation and chemotherapy and has not done well and patient's mother wants to be ensured that her son will improve if receiving cancer treatment. Patient will likely need referral to tertiary treatment center if she decides with this option. Oncology is following and starting the patient on high-dose steroids and will monitor closely. Nephrology also following his creatinine continues to be elevated. Creatinine slightly worsened at 2.2 to with a BUN of 45, sodium is 138, potassium is 3.6, current hemoglobin is 9.6, calcium is also 9.6 and improved, current magnesium is 1.8. Repeat Covid testing was negative and urine is negative as well. Chest x-ray from yesterday shows basilar density that may reflect underlying atelectasis or developing infiltrates. Patient also continues to have intermittent low-grade fevers but responds appropriately to Tylenol. Patient is maintained on room air with oxygen saturations of 96%. Also discussed in detail with mother Alessandra about CODE STATUS and she does not want son placed on mechanical vent or compressions and status was changed to no code. 02/03/2021 Patient is seen in follow-up with no acute overnight issues. Nephrology and oncology following. Patient is receiving high-dose oral steroids on day 2 of 4. Sodium today is 139 with a potassium of 4.0 and creatinine is 2.0. Undergoing 24-hour urine at this time. Patient continues on sodium bicarbonate tablets and will continue. Had a lengthy discussion with mother who states she wants "to keep her baby alive" and was discussed in detail about the benefits versus risks of needing oncology treatment and she will be referred to tertiary oncology treatment center once stabilized. 02/04/2021 Patient is seen and evaluated sitting up in a bedside recliner with parent's at bedside; patient's mother has multiple questions and is concerned about patient's seizure medications being continued and requesting medication for acid reflux Vital signs are stable with a temperature of 98.3, pulse 72, respiration 20 and blood pressure of 133/73 Medications are reviewed and patient has been resumed on home antiseizure therapy; has been started on Protonix 40 mg twice a day for acid reflux Patient remains on high dose steroid therapy in form of dexamethasone 40 mg daily with plan to complete 4 days of treatment today being day #3/4 Creatinine has trended down from 2.0 yesterday down to 1.6; nephrology on board and recommending to continue with IV fluid hydration 02/05/2021; Patient is seen and evaluated resting comfortably in bed; family not present at bedside; vital signs are reviewed and stable Nephrology is following; patient remains on LR at 75 ML's an hour. Renal f unction and calcium improving. No new labs today; continue to avoid nephrotoxic agents and hypotensive episodes. recommend Palliative care consult to clarify goals of care 02/06/2021 Patient seen and evaluated in follow-up today with oncology and mother at the bedside with no acute overnight issues. Patient is maintained on IV hydration and nephrology following patient's creatinine continues to be elevated although currently improving at 1.6 and BUN is 40. Sodium is 143 with a potassium of 4.6. Patient remains afebrile. Patient has completed high-dose steroids. Mother states she would like to take her son to the cancer [facility] in [place] and she states she will be driving him there once discharged. Will discuss with case management and social work about possible resources. Also discussed cancer treatment here locally and mother is persistent on going to [place]. Will repeat a.m. labs to monitor kidney functions. Constitutional: Denied any fatigue denied any fever. Cardio vascular: denied any chest pain, palpitations Gastrointestinal denied any nausea vomiting Pulmonary: Denied any shortness of breath cough Neurologic denied any new focal deficits Objective - Vital Signs Vital signs: Vital Signs Temp 98.5 F 02/06/21 12:59 Pulse 76 02/06/21 12:59 Resp 15 02/06/21 12:59 BP 124/69 02/06/21 12:59 Pulse Ox 95 02/06/21 12:59 Intake & Output 02/05/21 02/06/21 02/06/21 18:59 06:59 18:59 Intake Total 240 Output Total 2 Balance 238 Intake: Oral 240 Output: Urine 2 Other: Voiding Method Urinal Urinal Urinal Diaper Diaper Diaper # Voids 3 # Bowel Movements 0 - Exam GENERAL: The patient is alert , can follow simple commands not in any acute distress HEENT: Pupils are round and equally reacting to light. EOMI. No scleral icterus. Positive for pallor CARDIOVASCULAR: S1 and S2 present. No additional sounds. PULMONARY: Chest is clear to auscultation, slightly decreased at the lower lung bases. No wheezes or crackles. ABDOMEN: Soft, nontender, nondistended, normoactive bowel sounds. No palpable organomegaly. MUSCULOSKELETAL: No joint swelling or deformity. EXTREMITIES: No cyanosis, clubbing, no pedal edema. NEUROLOGICAL: Patient is able to follow simple commands. Mostly nonverbal SKIN: no rash - Labs CBC & Chem 7: 02/04/21 04:59 02/06/21 05:05 Labs: Abnormal Lab Results - Last 24 Hours (Table) 02/06/21 02/06/21 Range/Units 05:05 15:46 Anion Gap 13.40 H (4.00-12.00) mmol/L BUN 40.0 H (9.0-27.0) mg/dL Creatinine 1.6 H (0.6-1.5) mg/dL Est GFR (CKD-EPI)AfAm 53.5 L (60.0-200.0) Est GFR (CKD-EPI)NonAf 46.1 L (60.0-200.0) BUN/Creatinine Ratio 25.00 H (12.00-20.00) Ratio Glucose 140 H (70-110) mg/dL POC Glucose (mg/dL) 124 H (75-99) mg/dL Calcium 7.2 L (8.7-10.3) mg/dL Microbiology - Last 24 Hours (Table) 02/01/21 10:16 Blood Culture - Preliminary Blood No Growth after 120 hours 02/01/21 10:19 Blood Culture - Preliminary Blood No Growth after 120 hours Assessment and Plan Assessment: Anemia - anemia of chronic disease without any evidence of acute GI bleed and patient received blood transfusion Elevated d-dimer ruled out pulmonary embolism Acute kidney injury: Most probably secondary to acute tubular necrosis from myeloma proteins, improving at 1.6, nephrology following Hypercalcemia: Secondary to multiple myeloma, improving Non-ST elevation [place]: Cardiology evaluated the patient patient is presently not on heparin because of severe anemia. Not recommending any cardiac catheterization at this time. History of seizure disorder Cerebral palsy History of stroke with right-sided weakness Obstructive sleep apnea GERD MGUS/multiple myeloma patient had a bone scan which is showing multiple metastatic lesions Multiple osteolytic lesions of the bones Scattered osteoblastic lesions No code Plan: Discussed with oncology about treatment plan moving forward and mother Alessandra at the bedside continues to refuse chemotherapy and radiation treatment as she is quite concerned having previous multiple family members who have had these treatments and not do well and does not want to place her son in harm and wants him to be happy and healthy. Had a very detailed discussion again with the mother who states "I want to keep my baby alive" and unsure if she fully and truly believes the severity of his prognosis. Risks versus benefits discussed about oncology treatment and once finished with steroids will refer to tertiary oncology treatment center in [place] per mother's request. oncology following. Creatinine slightly improving and nephrology is following. Patient continued on sodium bicarb tablets and will continue. Will repeat a.m. labs and discuss with nephrology in the morning about clearance. Prognosis remains guarded and poor. Anticipate discharge in 24 hours.
[2021-02-06] MEDS: ACETAMINOPHEN TAB 325 MG TAB PO PRN (16:58)
--- NOTE | 2021-02-06 18:07 | P.PN ---
Subjective Progress Note Date: 02/06/21 Principal diagnosis: Anemia, progressive weakness, renal failure In follow-up today patient is nonverbal but, interacts somewhat with his mother. He does not appear to be in any physical distress. Objective - Vital Signs Vital signs: Vital Signs Temp 98.5 F 02/06/21 12:59 Pulse 76 02/06/21 12:59 Resp 15 02/06/21 12:59 BP 124/69 02/06/21 12:59 Pulse Ox 95 02/06/21 12:59 Intake & Output 02/05/21 02/06/21 02/06/21 18:59 06:59 18:59 Intake Total 240 Output Total 2 Balance 238 Intake: Oral 240 Output: Urine 2 Other: Voiding Method Urinal Urinal Urinal Diaper Diaper Diaper # Voids 3 # Bowel Movements 0 - Exam 60-year-old with cerebral palsy laying in bed, no acute distress, he is alert, respirations are even and unlabored, he is vocal only with his mother. - Constitutional General appearance: Present: no acute distress - EENT Eyes: Present: anicteric sclerae ENT: Present: hearing grossly normal - Labs CBC & Chem 7: 02/04/21 04:59 02/06/21 05:05 Labs: Abnormal Lab Results - Last 24 Hours (Table) 02/06/21 02/06/21 Range/Units 05:05 15:46 Anion Gap 13.40 H (4.00-12.00) mmol/L BUN 40.0 H (9.0-27.0) mg/dL Creatinine 1.6 H (0.6-1.5) mg/dL Est GFR (CKD-EPI)AfAm 53.5 L (60.0-200.0) Est GFR (CKD-EPI)NonAf 46.1 L (60.0-200.0) BUN/Creatinine Ratio 25.00 H (12.00-20.00) Ratio Glucose 140 H (70-110) mg/dL POC Glucose (mg/dL) 124 H (75-99) mg/dL Calcium 7.2 L (8.7-10.3) mg/dL Microbiology - Last 24 Hours (Table) 02/01/21 10:16 Blood Culture - Preliminary Blood No Growth after 120 hours 02/01/21 10:19 Blood Culture - Preliminary Blood No Growth after 120 hours Assessment and Plan (1) Multiple myeloma Narrative/Plan: Patient was diagnosed with multiple myeloma several years ago, no ongoing therapy, unsure how much treatment he received as mother was not able to effectively communicate concerns about treatment or if she was having diffic ulties managing the treatment regimen. It was reinforced with the mother that much of his current condition is most related to progressive myeloma. Patient was given a pulse dose of dexamethasone with some improvement in his renal function. She states that she plans on taking him to [place] for evaluation. She has requested a copy of all of the medical records from our office. Patient was seen in the office 10 time between 12/2016 and 08/2017. Will get her a copy of those visits and any testing ordered/done by our office. We discussed the pulse dose dexamethasone-40 mg daily, 4 days on 4 days off. It is an acute treatment option, it will only provide temporary improvements. I told her that we could provide her with 2 more courses of of this and hopefully that would help her son to feel little bit better while they get to [place]. Prescription was sent to [facility] at the [facility]) per her request. We clarified that the goal was to get her son feeling as best as we could/stabilize him. it was reinforced that her son's condition will decline again without some sort of treatment. All questions answered to the best of my ability. Current Visit: Yes Status: Chronic Priority: High Code(s): C90.00 - MULTIPLE MYELOMA NOT HAVING ACHIEVED REMISSION SNOMED Code(s): 553729939 Time with Patient: Greater than 30
[2021-02-06] MEDS: ATORVASTATIN 40 MG TAB PO SCH (20:51)
[2021-02-06] MEDS: polyethylene glycoL 3350 17 GM POWD.PACK PO SCH (20:52)
[2021-02-07 06:01] LABS: African American GFR (CKD) 57 (>60 ml/min/1.73 sqM); Anion Gap 4 mmol/L; Blood Urea Nitrogen 29 mg/dL (9-20); Calcium 6.8 mg/dL (8.4-10.2); Carbon Dioxide 29 mmol/L (22-30); Chloride 108 mmol/L (98-107); Glucose 90 mg/dL (74-99); Non-African American GFR(CKD) 49 (>60 ml/min/1.73 sqM); Potassium 3.7 mmol/L (3.5-5.1); Sodium 141 mmol/L (137-145)
[2021-02-07] MEDS: ALBUTEROL NEBULIZED 2.5 MG/3 ML INHALATION SCH ×3 (09:01→20:43)
[2021-02-07] MEDS: GABAPENTIN 300 MG CAP PO SCH ×3 (09:12→21:40)
[2021-02-07] MEDS: SODIUM BICARBONATE TAB 650 MG TAB PO SCH (09:12)
[2021-02-07] MEDS: METOPROLOL TARTRATE 12.5 MG TAB PO SCH (09:12)
[2021-02-07] MEDS: LACOSAMIDE 50 MG TABLET PO SCH ×2 (09:13→21:40)
[2021-02-07] MEDS: lamoTRIgine 100 MG TAB PO SCH ×3 (09:13→21:40)
[2021-02-07] MEDS: PANTOPRAZOLE 40 MG TABLET PO SCH ×2 (09:13→17:18)
--- NOTE | 2021-02-07 15:44 | PN ---
PROGRESS NOTE Patient is seen for followup for acute kidney injury, mostly associated with hypercalcemia and possible underlying myeloma kidney. UA is quite unremarkable. However, patient has significantly elevated free kappa light chains and family has refused treatment thus far. He is willing to proceed with second opinions and the plans are for discharge today. His calcium level has improved currently at 7.2 from about 11 on initial admission. The patient did receive 1 dose of pamidronate. PHYSICAL EXAMINATION: On examination today, patient is comfortable. He is not in any acute distress. The patient's mother is present at bedside. Blood pressure 116/62, heart rate 70 per minute. No evidence of edema. The patient does not communicate much. LABS: Labs show sodium 141, potassium 3.7, chloride 108, BUN 29, creatinine 1.5. ASSESSMENT: 1. Acute kidney injury secondary to hypercalcemia, rule out underlying myeloma kidney, although UA is quite benign. The patient does have about 2 grams of proteinuria. He should be treated for the underlying myeloma. 2. Multiple myeloma elevated IgG kappa light chains. The patient would like to proceed for second opinion. She is advised regarding possible options. PLAN: Patient is encouraged to pursue treatment for underlying multiple myeloma. MMODL / IJN: [id number] /
--- NOTE | 2021-02-07 17:27 | P.PN ---
Subjective Progress Note Date: 02/07/21 Principal diagnosis: Anemia, progressive weakness, renal failure In follow-up today patient is nonverbal, no acute distress, he follows his mother's commands. Objective - Vital Signs Vital signs: Vital Signs Temp 98.2 F 02/07/21 04:25 Pulse 64 02/07/21 12:11 Resp 16 02/07/21 04:25 BP 116/62 02/07/21 12:05 Pulse Ox 93 L 02/07/21 12:05 Intake & Output 02/06/21 02/07/21 02/07/21 18:59 06:59 18:59 Intake Total 1240 1140 Balance 1240 1140 Intake: Intake, IV Titration 640 900 Amount Lactated Ringers 1,000 ml 640 900 @ 75 mls/hr IV .[id number] ALTA Rx#:[id number] Oral 600 240 Other: Voiding Method Urinal Urinal Urinal Diaper Diaper Diaper # Voids 3 - Constitutional General appearance: Present: average body habitus, cooperative, no acute distress - EENT Eyes: Present: anicteric sclerae, EOMI ENT: Present: normal oropharynx - Respiratory Respiratory: bilateral: CTA - Cardiovascular Heart sounds: normal: S1, S2 - Peripheral edema leg Peripheral Edema: bilateral: None - Gastrointestinal General gastrointestinal: Present: normal bowel sounds, soft - Integumentary Integumentary: Present: normal - Musculoskeletal Musculoskeletal: Present: generalized weakness - Labs CBC & Chem 7: 02/04/21 04:59 02/07/21 05:05 Labs: Abnormal Lab Results - Last 24 Hours (Table) 02/07/21 Range/Units 05:05 Chloride 108 H (98-107) mmol/L BUN 29 H (9-20) mg/dL Creatinine 1.52 H (0.66-1.25) mg/dL Calcium 6.8 L (8.4-10.2) mg/dL Microbiology - Last 24 Hours (Table) 02/01/21 10:16 Blood Culture - Final Blood No Growth after 144 hours 02/01/21 10:19 Blood Culture - Final Blood No Growth after 144 hours Assessment and Plan (1) Multiple myeloma Narrative/Plan: Patient was diagnosed with multiple myeloma several years ago, no ongoing therapy, unsure how much treatment he received as mother was not able to effectively communicate how much treatment pt took. She has difficulty communicating her concerns about treatment. Again, today, >40min spent reinforcing with the mother that much of his current condition is related to progressive myeloma. She was certain that the patient was unable to speak properly because of the steroids. I explained to her that the steroids were 4 days in duration, called pulse dose steroids, used because the myeloma was overwhelming the patient's kidneys. They were stopped 2 days ago. She relayed that he was having difficulty swallowing/choking by telling me that he "told her" "no more" when she was feeding him. So, I verified with her, the patient did speak today and with that she could agree therefore, the steroids were not causing the patient to be unable to speak as the patient did speak today. He did not continue to choke/nothing became of choking because the patient was breathing fine, did not require a Heimlich maneuver. We played the same scenario with her saying that she wondered why his GI tract wasn't being evaluated-the patient has no GI complaints, he is having normal bowel movements per the mother. I gave the patient all of the medical records that she requested from our [facility]. She is not sure if she is taking her son to [place] now because it so expensive. She was asking me for recommendations were to take him. Told her that [facility] has a myeloma clinic and that [facility] has a myeloma team. Pulse dose dex is supposed to start again on 02/09. Prescription for 2 more cycles was sent to [facility]. We again clarified that the goal was to get her son feeling as best as we could. Again reinforced that her son's condition will decline again without some sort of treatment. All questions answered to the best of my ability. Current Visit: Yes Status: Chronic Priority: High Code(s): C90.00 - MULTIPLE MYELOMA NOT HAVING ACHIEVED REMISSION SNOMED Code(s): 268860266
[2021-02-07 19:41] VITALS: RESP 14
[2021-02-07] MEDS: ATORVASTATIN 40 MG TAB PO SCH (21:40)
[2021-02-07] MEDS: polyethylene glycoL 3350 17 GM POWD.PACK PO SCH (21:40)
[2021-02-07] MEDS: LACTATED RINGERS 1,000 ML IV SCH (21:46)
[2021-02-08 04:28] VITALS: BP 149/76; TEMP 99.4
[2021-02-08] MEDS: ALBUTEROL NEBULIZED 2.5 MG/3 ML INHALATION SCH (07:29)
--- NOTE | 2021-02-08 08:42 | P.DS ---
Providers Date of admission: 01/30/21 06:14 Expected date of discharge: 02/07/21 Attending physician: Candace Rodgers Consults: 01/30/21 06:14 Consult Physician Routine Consulting Provider: Constantin Guzmán Consult Reason/Comments: nstemi Do you want consulting provider notified?: Yes 01/30/21 08:53 Consult Physician Routine Consulting Provider: Irving Chavez Consult Reason/Comments: anemia, reported history of bone marrow cancer per vmother Do you want consulting provider notified?: Yes 01/31/21 10:43 Consult Physician Routine Consulting Provider: Raulito Arias Consult Reason/Comments: Acute renal failure. 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 Patient will follow-up with Dr. Camacho upon discharge. Patient's mother stated she was taking her son to cancer [facility] and instructed her to do so immediately upon discharge. Patient was given a short course of oral steroids per oncology that was sent to her pharmacy of request. Total time taken is greater than 35 minutes. Hospital course Mr. Harrington is a 60-year-old gentleman with history of cerebral palsy, seizure disorder, stroke/TIA, GERD, hypertension, obstructive sleep apnea brought in by his mother for complaints of chest pain. Patient cannot communicate so the history was taken from his mother who is at his bedside. His mother states that for the past 2-3 days patient has been pointing to the left side of the chest and complaining about pain. His mother thought he was having GI symptoms and gave him some gas pills that helped with his symptoms to some extent. But as he continuously pointed to the left side of his chest he mother brought him for further evaluation. She also mentions that she noted that he was having a seizure-like episode one day prior to bringing him to the hospital. She mentions that patient has history of seizures, he is on Keppra and Lamictal at home. She denied about any fevers, difficulty in breathing that she noticed at home. She states that at baseline he walks with the help of walker and can come indicate with her when he is hungry. She did not mention any change in his baseline activity. Complete review of systems could not be done, due to limitations in communication. In the ER at the time of admission, patient's vitals were temperature 97.7, heart rate 91, respiratory rate 20, blood pressure 1:30/71, saturating at 97% on room air. On reviewing his labs white count of 3.5, hemoglobin 6.1 with hematocrit 19.3, platelet count 251. PT of 9.6, INR 0.9, d-dimer 3.39. Sodium 136 compression 4, chloride 107, bicarb 17, BUN 42, creatinine 1.68. Calcium is 10.5, phosphorus 5.1, magnesium 1.5 troponin 0.175. Coronavirus negative. Patient had a CAT scan of the brain showing no acute hemorrhage. As his d-dimer was elevated, he had CT and she of the chest showing no acute pulmonary embolism but degenerative changes of the spine with diffuse severe osteoporosis. Diffuse lytic lesions related to multiple myeloma. Scattered osteoblastic lesions. EKG showing left ventricle hypertrophy with normal sinus rhythm. Echocardiogram showing ejection fraction of 55%. 01/31/2021 Patient was evaluated by cardiology for non-ST elevation myocardial infarction not recommending any cardiac catheterization because of his severe anemia and need for regular antiplatelet therapy postcard a catheterization. Patient also has acute renal failure probably from a myeloma proteins and acute tubular necrosis. Patient does have history of multiple myeloma probably noncompliant with medications. Oncology valid the patient patient is undergoing bone scan to evaluate bone lesions for multiple myeloma. Patient received blood transfusion no evidence of acute blood loss patient probably has chronic anemia from anemia of chronic disease. Patient has normocytic anemia. Patient doesn't provide much of the history. She does have several palsy and mental retardation secondary to cerebral palsy. 02/01/2021 and patient is eating breakfast doing well sitting on the chair able to provide me history today. Patient had a bone scan which showed multiple metastatic lesions from my his multiple myeloma patient remains mild hyper calcemic patient can use to be on IV fluids. Creatinine continues to be high. Patient had a low-grade fever because of which I'll obtain Covid 19 PCR along with blood cultures urine cultures chest x-ray. 02/02/2021 Patient is seen and evaluated and follow-up with mother at the bedside had a detailed discussion about the bone scan results and her treatment plans moving forward and she continued to state that she wants to do what's best for her son and keep her son happy and healthy and has had multiple family members in the past that of Harry radiation and chemotherapy and has not done well and patient's mother wants to be ensured that her son will improve if receiving cancer treatment. Patient will likely need referral to tertiary treatment center if she decides with this option. Oncology is following and starting the patient on high-dose steroids and will monitor closely. Nephrology also following his creatinine continues to be elevated. Creatinine slightly worsened at 2.2 to with a BUN of 45, sodium is 138, potassium is 3.6, current hemoglobin is 9.6, calcium is also 9.6 and improved, current magnesium is 1.8. Repeat Covid testing was negative and urine is negative as well. Chest x-ray from yesterday shows basilar density that may reflect underlying atelectasis or developing infiltrates. Patient also continues to have intermittent low-grade fevers but responds appropriately to Tylenol. Patient is maintained on room air with oxygen saturations of 96%. Also discussed in detail with mother Alessandra about CODE STATUS and she does not want son placed on mechanical vent or compressions and status was changed to no code. 02/03/2021 Patient is seen in follow-up with no acute overnight issues. Nephrology and oncology following. Patient is receiving high-dose oral steroids on day 2 of 4. Sodium today is 139 with a potassium of 4.0 and creatinine is 2.0. Undergoing 24-hour urine at this time. Patient continues on sodium bicarbonate tablets and will continue. Had a lengthy discussion with mother who states she wants "to keep her baby alive" and was discussed in detail about the benefits versus risks of needing oncology treatment and she will be referred to tertiary oncology treatment center once stabilized. 02/04/2021 Patient is seen and evaluated sitting up in a bedside recliner with parent's at bedside; patient's mother has multiple questions and is concerned about patient's seizure medications being continued and requesting medication for acid reflux Vital signs are stable with a temperature of 98.3, pulse 72, respiration 20 and blood pressure of 133/73 Medications are reviewed and patient has been resumed on home antiseizure therapy; has been started on Protonix 40 mg twice a day for acid reflux Patient remains on high dose steroid therapy in form of dexamethasone 40 mg daily with plan to complete 4 days of treatment today being day #3/4 Creatinine has trended down from 2.0 yesterday down to 1.6; nephrology on board and recommending to continue with IV fluid hydration 02/05/2021; Patient is seen and evaluated resting comfortably in bed; family not present at bedside; vital signs are reviewed and stable Nephrology is following; patient remains on LR at 75 ML's an hour. Renal function and calcium improving. No new labs today; continue to avoid nephrotoxic agents and hypotensive episodes. recommend Palliative care consult to clarify goals of care 02/06/2021 Patient seen and evaluated in follow-up today with oncology and mother at the bedside with no acute overnight issues. Patient is maintained on IV hydration and nephrology following patient's creatinine continues to be elevated although currently improving at 1.6 and BUN is 40. Sodium is 143 with a potassium of 4.6. Patient remains afebrile. Patient has completed high-dose steroids. Mother states she would like to take her son to the cancer [facility] in [place] and she states she will be driving him there once discharged. Will discuss with case management and social work about possible resources. Also discussed cancer treatment here locally and mother is persistent on going to [place]. Will repeat a.m. labs to monitor kidney functions. 02/07/2021 Patient is seen in follow-up with no acute issues creatinine improving and sodium bicarb was discontinued and this was discussed with nephrology recommend repeat labs in a few days to monitor kidney functions. Patient's mother Alessandra also mentioned that she will be taking him to the cancer Center in [place] for further treatment of his myeloma. Currently no reports of chest pain, shortness of breath, or palpitations. Patient is afebrile. No reports of nausea or vomiting and patient is tolerating diet. Guarded prognosis. On exam vital signs are stable. Temp is 98.2F, pulse is 69, respirations are 16, blood pressure is 115/59, oxygen saturation is 98% on 2 L via nasal cannula. Cardio S1, S2 are muffled. Respiratory shows diminished breath sounds at the bases with no wheezing or rhonchi noted. Abdomen is soft and nontender. Nervous system shows mild diffuse weakness. Please refer to medication reconciliation sheet for a list of medications. Patient Condition at Discharge: Fair Plan - Discharge Summary Discharge Rx Participant: No New Discharge Prescriptions: New Metoprolol Tartrate [Lopressor] 12.5 mg PO DAILY 30 Days #30 tab Pantoprazole [Protonix] 40 mg PO DAILY 30 Days #30 tablet. polyethylene glycoL 3350 [Miralax] 17 gm PO HS 30 Days #30 powd.pack Continue Gabapentin [Neurontin] 300 mg PO TID Lacosamide [Vimpat] 200 mg PO BID Atorvastatin [Lipitor] 40 mg PO HS levETIRAcetam [Keppra] 1,500 mg PO BID lamoTRIgine [LaMICtal] 100 mg PO TID Acetaminophen Tab [Tylenol] 1,000 mg PO Q6HR PRN PRN Reason: Pain Or Fever > 100.5 Albuterol Nebulized [Ventolin Nebulized] 2.5 mg INHALATION 1000,1400,2000 Discontinued Aspirin EC [Ecotrin Low Dose] 81 mg PO DAILY Discharge Medication List Gabapentin [Neurontin] 300 mg PO TID 07/27/15 [History] Acetaminophen Tab [Tylenol] 1,000 mg PO Q6HR PRN 01/30/21 [History] Atorvastatin [Lipitor] 40 mg PO HS 01/30/21 [History] Lacosamide [Vimpat] 200 mg PO BID 01/30/21 [History] lamoTRIgine [LaMICtal] 100 mg PO TID 01/30/21 [History] levETIRAcetam [Keppra] 1,500 mg PO BID 01/30/21 [History] Albuterol Nebulized [Ventolin Nebulized] 2.5 mg INHALATION 1000,1400,2000 02/02/21 [History] Metoprolol Tartrate [Lopressor] 12.5 mg PO DAILY 30 Days #30 tab 02/07/21 [Rx] Pantoprazole [Protonix] 40 mg PO DAILY 30 Days #30 tablet. 02/07/21 [Rx] polyethylene glycoL 3350 [Miralax] 17 gm PO HS 30 Days #30 powd.pack 05/04/21 [Rx] Follow up Appointment(s)/Referral(s): Cyndi Camacho MD [Primary Care Provider] - 1-2 days (office wants patient to call and schedule appt.they can do same day appts.) Ambulatory/Diagnostic Orders: Complete Blood Count w/diff [LAB.AMB] Time Frame: 3 Days, Location: None Selected Patient Instructions/Handouts: Weakness (DC), Anemia (DC) Activity/Diet/Wound Care/Special Instructions: Activity Limited until follow-up Follow-up with primary care provider upon discharge Go to cancer [facility] in [place] upon discharge DESHAWN Continue medications as prescribed Repeat labs in 2-3 days to monitor kidney functions Continue current diet Encourage fluids Discharge Disposition: HOME SELF-CARE
[2021-02-08] MEDS: LACTATED RINGERS 1,000 ML IV SCH (09:02)
[2021-02-08] MEDS: PANTOPRAZOLE 40 MG TABLET PO SCH (09:02)
[2021-02-08] MEDS: lamoTRIgine 100 MG TAB PO SCH (09:03)
[2021-02-08] MEDS: LACOSAMIDE 50 MG TABLET PO SCH (09:03)
[2021-02-08] MEDS: GABAPENTIN 300 MG CAP PO SCH (09:03)
[2021-02-08] MEDS: METOPROLOL TARTRATE 12.5 MG TAB PO SCH (09:04)
[2021-02-08 10:57] VITALS: PULSE 72
--- NOTE | 2021-02-08 13:31 | P.PN ---
Subjective Progress Note Date: 02/07/21 Mr. Harrington is a 60-year-old gentleman with history of cerebral palsy, seizure disorder, stroke/TIA, GERD, hypertension, obstructive sleep apnea brought in by his mother for complaints of chest pain. Patient cannot communicate so the history was taken from his mother who is at his bedside. His mother states that for the past 2-3 days patient has been pointing to the left side of the chest and complaining about pain. His mother thought he was having GI symptoms and gave him some gas pills that helped with his symptoms to some extent. But as he continuously pointed to the left side of his chest he mother brought him for further evaluation. She also mentions that she noted that he was having a se izure-like episode one day prior to bringing him to the hospital. She mentions that patient has history of seizures, he is on Keppra and Lamictal at home. She denied about any fevers, difficulty in breathing that she noticed at home. She states that at baseline he walks with the help of walker and can come indicate with her when he is hungry. She did not mention any change in his baseline acti vity. Complete review of systems could not be done, due to limitations in communication. In the ER at the time of admission, patient's vitals were temperature 97.7, heart rate 91, respiratory rate 20, blood pressure 1:30/71, saturating at 97% on room air. On reviewing his labs white count of 3.5, hemoglobin 6.1 with hematocrit 19.3, platelet count 251. PT of 9.6, INR 0.9, d-dimer 3.39. Sodium 136 compression 4, chloride 107, bicarb 17, BUN 42, creatinine 1.68. Calcium is 10.5, phosphorus 5.1, magnesium 1.5 troponin 0.175. Coronavirus negative. Patient had a CAT scan of the brain showing no acute hemorrhage. As his d-dimer was elevated, he had CT and she of the chest showing no acute pulmonary embolism but degenerative changes of the spine with diffuse severe osteoporosis. Diffuse lytic lesions related to multiple myeloma. Scattered osteoblastic lesions. EKG showing left ventricle hypertrophy with normal sinus rhythm. Echocardiogram showing ejection fraction of 55%. 01/31/2021 Patient was evaluated by cardiology for non-ST elevation myocardial infarction not recommending any cardiac catheterization because of his severe anemia and need for regular antiplatelet therapy postcard a catheterization. Patient also has acute renal failure probably from a myeloma proteins and acute tubular necrosis. Patient does have history of multiple myeloma probably noncompliant with medications. Oncology valid the patient patient is undergoing bone scan to evaluate bone lesions for multiple myeloma. Patient received blood transfusion no evidence of acute blood loss patient probably has chronic anemia from anemia of chronic disease. Patient has normocytic anemia. Patient doesn't provide much of the history. She does have several palsy and mental retardation secondary to cerebral palsy. 02/01/2021 and patient is eating breakfast doing well sitting on the chair able to provide me history today. Patient had a bone scan which showed multiple metastatic lesions from my his multiple myeloma patient remains mild hypercalcemic patient can use to be on IV fluids. Creatinine continues to be high. Patient had a low-grade fever because of which I'll obtain Covid 19 PCR a long with blood cultures urine cultures chest x-ray. 02/02/2021 Patient is seen and evaluated and follow-up with mother at the bedside had a detailed discussion about the bone scan results and her treatment plans moving forward and she continued to state that she wants to do what's best for her son and keep her son happy and healthy and has had multiple family members in the past that of Harry radiation and chemotherapy and has not done well and patient's mother wants to be ensured that her son will improve if receiving cancer treatment. Patient will likely need referral to tertiary treatment center if she decides with this option. Oncology is following and starting the patient on high-dose steroids and will monitor closely. Nephrology also following his creatinine continues to be elevated. Creatinine slightly worsened at 2.2 to with a BUN of 45, sodium is 138, potassium is 3.6, current hemoglobin is 9.6, calcium is also 9.6 and improved, current magnesium is 1.8. Repeat Covid testing was negative and urine is negative as well. Chest x-ray from yesterday shows basilar density that may reflect underlying atelectasis or developing infiltrates. Patient also continues to have intermittent low-grade fevers but responds appropriately to Tylenol. Patient is maintained on room air with oxygen saturations of 96%. Also discussed in detail with mother Alessandra about CODE STATUS and she does not want son placed on mechanical vent or compressions and status was changed to no code. 02/03/2021 Patient is seen in follow-up with no acute overnight issues. Nephrology and oncology following. Patient is receiving high-dose oral steroids on day 2 of 4. Sodium today is 139 with a potassium of 4.0 and creatinine is 2.0. Undergoing 24-hour urine at this time. Patient continues on sodium bicarbonate tablets and will continue. Had a lengthy discussion with mother who states she wants "to keep her baby alive" and was discussed in detail about the benefits versus risks of needing oncology treatment and she will be referred to tertiary oncology treatment center once stabilized. 02/04/2021 Patient is seen and evaluated sitting up in a bedside recliner with parent's at bedside; patient's mother has multiple questions and is concerned about patient's seizure medications being continued and requesting medication for acid reflux Vital signs are stable with a temperature of 98.3, pulse 72, respiration 20 and blood pressure of 133/73 Medications are reviewed and patient has been resumed on home antiseizure therapy; has been started on Protonix 40 mg twice a day for acid reflux Patient remains on high dose steroid therapy in form of dexamethasone 40 mg daily with plan to complete 4 days of treatment today being day #3/4 Creatinine has trended down from 2.0 yesterday down to 1.6; nephrology on board and recommending to continue with IV fluid hydration 02/05/2021; Patient is seen and evaluated resting comfortably in bed; family not present at bedside; vital signs are reviewed and stable Nephrology is following; patient remains on LR at 75 ML's an hour. Renal f unction and calcium improving. No new labs today; continue to avoid nephrotoxic agents and hypotensive episodes. recommend Palliative care consult to clarify goals of care 02/06/2021 Patient seen and evaluated in follow-up today with oncology and mother at the bedside with no acute overnight issues. Patient is maintained on IV hydration and nephrology following patient's creatinine continues to be elevated although currently improving at 1.6 and BUN is 40. Sodium is 143 with a potassium of 4.6. Patient remains afebrile. Patient has completed high-dose steroids. Mother states she would like to take her son to the [facility] in [place] and she states she will be driving him there once discharged. Will discuss with case management and social work about possible resources. Also discussed cancer treatment here locally and mother is persistent on going to [place]. Will repeat a.m. labs to monitor kidney functions. 02/07/2021 Patient is seen in follow-up today and will be discharged today and discuss with nephrology and sodium bicarb tablets have been discontinued. Instructed the mother to continue to encourage fluids and hydration and also to limit his Pepsi intake as that is all he has been drinking. Patient is not having any discomfort and is having bowel movements with no abdominal pain and tolerating diet. Sodium 141 today with a potassium of 3.7 and creatinine slightly improved at 1.52 and BUN is 29. Oncology is following and had a very detailed lengthy d iscussion about treatment options and facilities to accommodate as patient mother feels he would benefit from a [facility]. Initially mother was going to take him to the [facility] in [place] although unable to afford traveling and the expenses. Additional resources provided by oncology to the mother. Constitutional: Denied any fatigue denied any fever. Cardio vascular: denied any chest pain, palpitations Gastrointestinal denied any nausea vomiting Pulmonary: Denied any shortness of breath cough Neurologic denied any new focal deficits Objective - Vital Signs Vital signs: Vital Signs Temp 99.4 F 02/08/21 04:27 Pulse 72 02/08/21 08:25 Resp 14 02/08/21 08:25 BP 149/76 02/08/21 04:27 Pulse Ox 98 02/08/21 04:27 Intake & Output 02/07/21 02/08/21 02/08/21 18:59 06:59 18:59 Intake Total 1300 480 Balance 1300 480 Intake: Intake, IV Titration 900 Amount Lactated Ringers 1,000 ml 900 @ 75 mls/hr IV .[id number] [facility] Rx#:[id number] Oral 400 480 Other: Voiding Method Urinal Urinal Urinal Diaper Diaper Diaper # Voids 3 1 # Bowel Movements 1 - Exam GENERAL: The patient is alert , can follow simple commands not in any acute distress HEENT: Pupils are round and equally reacting to light. EOMI. No scleral icterus. Positive for pallor CARDIOVASCULAR: S1 and S2 present. No additional sounds. PULMONARY: Chest is clear to auscultation, slightly decreased at the lower lung bases. No wheezes or crackles. ABDOMEN: Soft, nontender, nondistended, normoactive bowel sounds. No palpable organomegaly. MUSCULOSKELETAL: No joint swelling or deformity. EXTREMITIES: No cyanosis, clubbing, no pedal edema. NEUROLOGICAL: Patient is able to follow simple commands. Mostly nonverbal SKIN: no rash - Labs CBC & Chem 7: 02/04/21 04:59 02/07/21 05:05 Labs: Microbiology - Last 24 Hours (Table) 02/01/21 10:16 Blood Culture - Final Blood No Growth after 144 hours 02/01/21 10:19 Blood Culture - Final Blood No Growth after 144 hours Assessment and Plan Assessment: Anemia - anemia of chronic disease without any evidence of acute GI bleed and patient received blood transfusion Elevated d-dimer ruled out pulmonary embolism Acute kidney injury: Most probably secondary to acute tubular necrosis from myeloma proteins, improving at 1.52, nephrology following Hypercalcemia: Secondary to multiple myeloma, improving Non-ST elevation NH: Cardiology evaluated the patient patient is presently not on heparin because of severe anemia. Not recommending any cardiac catheterization at this time. History of seizure disorder Cerebral palsy History of stroke with right-sided weakness Obstructive sleep apnea GERD MGUS/multiple myeloma patient had a bone scan which is showing multiple metastatic lesions Multiple osteolytic lesions of the bones Scattered osteoblastic lesions No code Plan: Discussed with oncology about treatment plan moving forward and mother Alessandra at the bedside continues to refuse chemotherapy and radiation treatment as she is quite concerned having previous multiple family members who have had these treatments and not do well and does not want to place her son in harm and wants him to be happy and healthy. Had a very detailed discussion again with the mother who states "I want to keep my baby alive" and unsure if she fully and truly believes the severity of his prognosis. Risks versus benefits discussed about oncology treatment and mother would like to seek treatment at a [facility] although she keeps changing her story and talking about different options in places and states she is unable to afford going to [place] for treatment and multiple resources were provided by oncology to the mother. oncology following. Creatinine slightly improving and nephrology is following. Discontinued sodium bicarb tablets. Prognosis remains guarded and poor. Patient is to be discharged today.
[2021-02-09] MEDS ORDERED: dexAMETHasone 4 MG TAB PO SCH (09:00)
== END 2021-02-08 11:06 | disposition home or self-care (01) | DRG 280 ==
LOC: EC 03:39 → 3SCARD 06:14 → 5NMEDONC 02-01 14:38
PROVIDERS: ADMIT Hospitalist; ATTEND Hospitalist
PROC: 30233N1 Transfusion of Nonautologous Red Blood Cells into Peripheral Vein, Percutaneous Approach (ICD-10-PCS; principal; 2021-01-30)
DX: I21.4 Non-ST elevation (NSTEMI) myocardial infarction (principal); N17.0 Acute kidney failure with tubular necrosis; I69.351 Hemiplegia and hemiparesis following cerebral infarction affecting right dominant side; R64 Cachexia; C90.00 Multiple myeloma not having achieved remission; E87.2 Acidosis; D63.8 Anemia in other chronic diseases classified elsewhere; I11.9 Hypertensive heart disease without heart failure; E87.8 Other disorders of electrolyte and fluid balance, not elsewhere classified; G40.909 Epilepsy, unspecified, not intractable, without status epilepticus; G80.9 Cerebral palsy, unspecified; Z20.822 Contact with and (suspected) exposure to COVID-19; E83.52 Hypercalcemia; N08 Glomerular disorders in diseases classified elsewhere; E78.5 Hyperlipidemia, unspecified; M81.0 Age-related osteoporosis without current pathological fracture; K59.00 Constipation, unspecified; G47.33 Obstructive sleep apnea (adult) (pediatric); Z68.26 Body mass index [BMI] 26.0-26.9, adult; K21.9 Gastro-esophageal reflux disease without esophagitis; F79 Unspecified intellectual disabilities; M84.58XS Pathological fracture in neoplastic disease, other specified site, sequela; R13.10 Dysphagia, unspecified; D72.819 Decreased white blood cell count, unspecified; M54.9 Dorsalgia, unspecified; M19.90 Unspecified osteoarthritis, unspecified site; R09.02 Hypoxemia; T45.1X6A Underdosing of antineoplastic and immunosuppressive drugs, initial encounter; Z91.128 Patient's intentional underdosing of medication regimen for other reason; Z79.82 Long term (current) use of aspirin; Z79.899 Other long term (current) drug therapy; Z87.2 Personal history of diseases of the skin and subcutaneous tissue; Z99.3 Dependence on wheelchair; Z86.59 Personal history of other mental and behavioral disorders; Z98.890 Other specified postprocedural states; Z88.5 Allergy status to narcotic agent; Z88.0 Allergy status to penicillin; Z88.8 Allergy status to other drugs, medicaments and biological substances; Z88.1 Allergy status to other antibiotic agents; Z91.041 Radiographic dye allergy status; Z83.2 Family history of diseases of the blood and blood-forming organs and certain disorders involving the immune mechanism; Z82.49 Family history of ischemic heart disease and other diseases of the circulatory system; Z82.3 Family history of stroke; Z80.3 Family history of malignant neoplasm of breast; Z80.41 Family history of malignant neoplasm of ovary; Z80.49 Family history of malignant neoplasm of other genital organs; Z87.01 Personal history of pneumonia (recurrent)
CPT/HCPCS: 36415; 70450; 71046; 71275; 76770; 78306; 80048; 80053; 80074; 81001; 81050; 82164; 82306; 82330; 82550; 82570; 82607; 82652; 82668; 82728; 82746; 82784; 83010; 83540; 83550; 83605; 83615; 83735; 83880; 83883; 83970; 84100; 84153; 84156; 84165; 84443; 84484; 84550; 85025; 85027; 85045; 85379; 85610; 85652; 85730; 86038; 86160; 86162; 86225; 86255; 86334; 86850; 86900; 86901; 86920; 87040; 87635; 93005; 93306; 94640; 94760; 96361; 96374; 96375; 99291